=== PATIENT | female | born 1940 | race Caucasian/White ===

== ENCOUNTER → 2017-01-18 | Outpatient (CLI) | payer OTHER ==
[~2017-01-18] MED LIST: ALBU0.08 INH; ALUMSUS2 PO; ASPI81TA25 PO; FLVHFA110 INH; HYDR25TA4 PO; LOSA50TA6 PO; MONT1TAB5 PO; NORT50CA PO; PANT1TAB48 PO
--- NOTE | 2017-01-18 09:29 | DIAGNOSTIC IMAGING REPORT ---
CHEST 2 VIEWS ROUTINE HISTORY: CHRONIC COUGH COMPARISON: Chest 07/29/2013. FINDINGS: Mild diffuse interstitial thickening which is likely chronic. Small linear densities the left lung base favor subsegmental atelectasis or scarring. No new focal lung consolidations to suggest pneumonia. No evidence for pulmonary edema. No pleural effusions. No pneumothorax. The heart is top normal in size. Right upper tracheal deviation remains unchanged. This is secondary to a large left thyroid goiter. IMPRESSION: No significant change compared to the prior study. No acute process. Electronically signed by: Bobby Romano M.D. 01/18/2017 9:27 AM Dictated Date/Time: 01/18/2017 9:26 AM
== END | disposition home or self-care (01) ==
LOC: C.RAD1850 09:13
PROVIDERS: ATTEND Family Medicine
DX: R04.2 Hemoptysis (principal)

== ENCOUNTER 2018-06-08 12:11 | Emergency (ER) | payer OTHER ==
[~2018-06-08] VITALS: Ht 170.2 cm; Wt 92.1 kg
[~2018-06-08 12:11] MED LIST changes: +PANT1TAB3 PO; -PANT1TAB48 PO
[2018-06-08 12:16] VITALS: Ht 170.2 cm; Wt 92.1 kg
--- NOTE | 2018-06-08 12:38 | EMERGENCY ROOM VISIT NOTE ---
History Report prepared by Cameron: Rodolfo Ugarte Under the Supervision of: Dr. Brayan Toussaint M.D. First contact with patient: 12:22 Chief Complaint: OTHER COMPLAINT Stated Complaint: BLOOD PRESSURE History of Present Illness The patient is a 78 year old female with a past medical history of hypertension and hysterectomy who presents to the ED with a cc of hypertension along with intermittent headaches and dizzy spells that started 4 days ago. The patient notes that she takes 25mg of Toprol daily and has no recent changes in this medication, although she did not take today's dose yet. She also notes that she has not had any recent stressors or any other events that could contribute to the hypertension. Negative for chest pain, shortness of breath, vision problems, abdominal pain, and regular exercise. Source of History: patient Onset: 4 days ago Position: head Quality: ache Timing: intermittent Associated Symptoms: No chest pain, No abdominal pain Review of Systems See HPI for pertinent positives and negatives. A total of ten systems were reviewed and were otherwise negative. Past Medical & Surgical Medical Problems: (1) Benign hypertension (2) Hysterectomy Family History Patient reports no known family medical history. Social History Smoking Status: Never Smoker Marital Status: Occupation Status: employed Current/Historical Medications Scheduled Acetaminophen (Tylenol Arthritis Ext Rel), 650 MG PO DAILY Metoprolol Succinate (Toprol Xl), 25 MG PO DAILY Allergies Coded Allergies: No Known Allergies (Verified , 0, 07/29/13) Physical Exam Vital Signs Date Time Temp Pulse Resp B/P (MAP) Pulse Ox O2 Delivery O2 Flow Rate FiO2 06/08/18 15:13 36.4 58 18 180/101 95 06/08/18 14:40 61 16 180/101 97 Room Air 06/08/18 13:00 58 06/08/18 12:40 56 20 207/114 97 Room Air 06/08/18 12:16 36.4 64 18 222/82 98 Room Air Physical Exam GENERAL: Awake, alert, well-appearing, NAD, obese HENT: Normocephalic, atraumatic. EYES: Normal conjunctiva. Sclera non-icteric. PERRL. No anisocoria. NECK: Supple. No nuchal rigidity. FROM. RESPIRATORY: CTAB, no rhonchi, wheezing, crackles CARDIAC: RRR, no MRG ABDOMEN: Soft, NTND, BS+ MSK: No chest wall TTP, no LE edema NEURO: GCS 15, CN 2-12 intact, moves all 4s on command SKIN: No rash or jaundice noted. Medical Decision & Procedures ER Provider Diagnostic Interpretation: Radiology results as stated below per my review and radiologist interpretation: CHEST ONE VIEW PORTABLE CLINICAL HISTORY: severe hypertension pain. Dyspnea. COMPARISON STUDY: 01/18/2017 FINDINGS: Mild cardia megaly. Mild prominence pulmonary vasculature. Diaphragms are smooth. IMPRESSION: Cardia megaly. Pulmonary vascular congestion. The above report was generated using voice recognition software. It may contain grammatical, syntax or spelling errors. Electronically signed by: Cortez Roberts M.D. 06/08/2018 12:58 PM Dictated Date/Time: 06/08/2018 12:57 PM Laboratory Results 06/08/18 13:16 Red Blood Count 4.55, Mean Corpuscular Volume 91.4, Mean Corpuscular Hemoglobin 29.2, Mean Corpuscular Hemoglobin Concent 32.0, Mean Platelet Volume 11.4, Neutrophils (%) (Auto) 70.9, Lymphocytes (%) (Auto) 21.6, Monocytes (%) (Auto) 5.7, Eosinophils (%) (Auto) 1.1, Basophils (%) (Auto) 0.2, Neutrophils # (Auto) 6.25, Lymphocytes # (Auto) 1.90, Monocytes # (Auto) 0.50, Eosinophils # (Auto) 0.10, Basophils # (Auto) 0.02 06/08/18 13:16 Test 06/08/18 13:16 06/08/18 14:24 White Blood Count 8.81 K/uL (4.8-10.8) Red Blood Count 4.55 M/uL (4.2-5.4) Hemoglobin 13.3 g/dL (12.0-16.0) Hematocrit 41.6 % (37-47) Mean Corpuscular Volume 91.4 fL (80-100) Mean Corpuscular Hemoglobin 29.2 pg (25-34) Mean Corpuscular Hemoglobin Concent 32.0 g/dl (32-36) Platelet Count 243 K/uL (130-400) Mean Platelet Volume 11.4 fL (7.4-10.4) Neutrophils (%) (Auto) 70.9 % Lymphocytes (%) (Auto) 21.6 % Monocytes (%) (Auto) 5.7 % Eosinophils (%) (Auto) 1.1 % Basophils (%) (Auto) 0.2 % Neutrophils # (Auto) 6.25 K/uL (1.4-6.5) Lymphocytes # (Auto) 1.90 K/uL (1.2-3.4) Monocytes # (Auto) 0.50 K/uL (0.11-0.59) Eosinophils # (Auto) 0.10 K/uL (0-0.5) Basophils # (Auto) 0.02 K/uL (0-0.2) RDW Standard Deviation 46.0 fL (36.4-46.3) RDW Coefficient of Variation 13.8 % (11.5-14.5) Immature Granulocyte % (Auto) 0.5 % Immature Granulocyte # (Auto) 0.04 K/uL (0.00-0.02) Anion Gap 8.0 mmol/L (3-11) Est Creatinine Clear Calc Drug Dose 41.9 ml/min Estimated GFR () 46.5 Estimated GFR (Non- 40.1 BUN/Creatinine Ratio 22.6 (10-20) Calcium Level 9.0 mg/dl (8.5-10.1) Total Bilirubin 1.1 mg/dl (0.2-1) Direct Bilirubin 0.2 mg/dl (0-0.2) Aspartate Amino Transf (AST/SGOT) 21 U/L (15-37) Alanine Aminotransferase (ALT/SGPT) 18 U/L (12-78) Alkaline Phosphatase 125 U/L (45-117) Total Protein 7.1 gm/dl (6.4-8.2) Albumin 3.7 gm/dl (3.4-5.0) Lipase 187 U/L (73-393) Thyroid Stimulating Hormone (TSH) 0.749 uIu/ml (0.300-4.500) Prothrombin Time 9.8 SECONDS (9.0-12.0) Prothromb Time International Ratio 0.9 (0.9-1.1) Activated Partial Thromboplast Time 24.9 SECONDS (21.0-31.0) Partial Thromboplastin Ratio 1.0 Laboratory results reviewed by me Medications Administered Medications (Trade) Dose Ordered Sig/Mateus Route Start Time Stop Time Status Last Admin Dose Admin Metoprolol Succinate (Toprol Xl Tab) 25 mg ONE STAT PO 06/08/18 12:41 06/08/18 12:42 DC 06/08/18 12:58 25 MG ECG Per My Interpretation Indication: weakness Rate (beats per minute): 59 Rhythm: sinus bradycardia Findings: left axis deviation, other (Normal intervals, no STST changes or TWI) ED Course 1228: The patient was evaluated in room B4B. A complete history and physical exam was performed. 1456: I reevaluated the patient 1514: I reevaluated the patient. Discussed results and discharge instructions: She verbalized understanding and agreement. The patient is ready for discharge. Medical Decision Nursing notes reviewed. Ancillary studies and prior records reviewed. Differential diagnosis: Etiologies such as benign hypertension, hypertensive emergency, cardiovascular pathology, pheochromocytoma, electrolyte abnormality, renal disease, endorgan damage, as well as others were entertained. Patient was seen and evaluated the bedside. Patient was referred for elevated blood pressure while at and an ophthalmology appointment. The patient does have elevated blood pressure with the patient denies any headaches or chest pain. The patient is well-appearing and has a nonfocal neurologic exam. Patient did have blood work completed, EKG, urinalysis. The patient currently does take Toprol 25 and has not taken her morning dose. This was given. Patient's EKG was unremarkable. The patient's blood work showed some mild CKD but given the patient's age I do not believe this is very unremarkable. No prior blood work within the last 3 years for comparison within this EMR. Patient was still asymptomatic. I discussed with the patient that she should continue to take her Toprol 25 once in the morning and once in the evening. Patient was told that she may take her pulse rate prior to taking her medication. Patient was told return if she any worsening symptoms. I also did provide counseling on diet and exercise as well as low-salt diet. Patient was given strict follow-up, discharge, and return precautions. All questions were answered. Patient was deemed suitable for outpatient follow-up at this time. Patient agreed with the plan of care and was safely discharged home. Medication Reconcilliation Current Medication List: was personally reviewed by me Blood Pressure Screening Patient's blood pressure: Elevated blood pressure Blood pressure disposition: Referred to PCP Impression Primary Impression: Hypertension Additional Impressions: Dietary counseling Exercise counseling CKD (chronic kidney disease) stage 3, GFR 30-59 ml/min Scribe Attestation The scribe's documentation has been prepared under my direction and personally reviewed by me in its entirety. I confirm that the note above accurately reflects all work, treatment, procedures, and medical decision making performed by me. Departure Information Dispostion Home / Self-Care Referrals Love Montano PA-C (PCP) Forms HOME CARE DOCUMENTATION FORM, IMPORTANT VISIT INFORMATION, WORK / SCHOOL INSTRUCTIONS Patient Instructions Hypertension Control, Hypertension Dc, My [facility] Additional Instructions Please return to the emergency department if you have worsening or recurrent symptoms not amenable to at-home treatment. Please call for a follow-up appointment with her primary care physician. Please take your medications as prescribed. If you have other concerns and/or complaints please feel free to also call your primary care physician's office or return the ED for further evaluation, management, and treatment. You were found to have an elevated blood pressure today (>120 sytolic or >90 diastolic). Per medicare guidelines, you need to follow up with this blood pressure screening with your Primary Care Physician (PCP). For a new PCP call [phone]. You may take tylenol 650 mg every 6 hours as needed for pain/fever unless told by your physician to not take it or have liver problems. Avoid NSAIDs. Please take your Toprol 25 mg once in the morning and once in the evening. Please schedule a follow-up appointment with your primary care physician to discuss your blood pressure management. You have been examined and treated today on an emergency basis only. This is not a substitute for, or an effort to provide, complete comprehensive medical care. It is impossible to recognize and treat all injuries or illnesses in a single emergency department visit. It is therefore important that you follow up closely with [facility], your PCP, and/or your specialist(s). Call as soon as possible for an appointment. Thank you for your time and consideration. I look forward to speaking with you again soon. Please don't hesitate to call us if you have any questions. Problem Qualifiers Primary Impression: Hypertension Hypertension type: unspecified Qualified Codes: I10 - Essential (primary) hypertension
[2018-06-08] MEDS ORDERED: METOPROLOL SUCC 25MG EXT REL TAB PO STA (12:41)
[2018-06-08] MEDS ORDERED: METO25TA4 PO (12:43)
[2018-06-08] MEDS ORDERED: ACET-1487 PO (12:43)
--- NOTE | 2018-06-08 12:59 | DIAGNOSTIC IMAGING REPORT ---
CHEST ONE VIEW PORTABLE CLINICAL HISTORY: severe hypertension pain. Dyspnea. COMPARISON STUDY: 01/18/2017 FINDINGS: Mild cardia megaly. Mild prominence pulmonary vasculature. Diaphragms are smooth. IMPRESSION: Cardia megaly. Pulmonary vascular congestion. The above report was generated using voice recognition software. It may contain grammatical, syntax or spelling errors. Electronically signed by: Cortez Roberts M.D. 06/08/2018 12:58 PM Dictated Date/Time: 06/08/2018 12:57 PM
[2018-06-08 14:01] LABS: BASO % 0.2 %; BASO ABS # 0.02 K/uL (0-0.2); EOS % 1.1 %; HEMATOCRIT 41.6 % (37-47); HEMOGLOBIN 13.3 g/dL (12.0-16.0); IG# 0.04 K/uL (0.00-0.02); LYMPH % 21.6 %; MEAN CELL VOLUME 91.4 fL (80-100); MEAN CORPUSCULAR HEMOGLOBIN 29.2 pg (25-34); MEAN PLATELET VOLUME 11.4 fL (7.4-10.4); MONO % 5.7 %; NEUT % 70.9 %; NEUT ABS # 6.25 K/uL (1.4-6.5); PLATELET COUNT 243 K/uL (130-400); RED CELL DISTRIBUTION WIDTH CV 13.8 % (11.5-14.5); WHITE BLOOD COUNT 8.81 K/uL (4.8-10.8)
[2018-06-08 14:32] LABS: ALBUMIN 3.7 gm/dl (3.4-5.0); CREATININE 1.27 mg/dl (0.60-1.20); POTASSIUM 4.5 mmol/L (3.5-5.1); TOTAL PROTEIN 7.1 gm/dl (6.4-8.2)
[2018-06-08 14:48] LABS: INR 0.9 (0.9-1.1); PTT PATIENT 24.9 SECONDS (21.0-31.0)
[2018-06-08 15:13] VITALS: BP 180/101; PULSE 58; TEMP 36.4; O2SAT 95
== END 2018-06-08 15:14 | disposition home or self-care (01) ==
LOC: C.EDB 12:12
DX: I12.9 Hypertensive chronic kidney disease with stage 1 through stage 4 chronic kidney disease, or unspecified chronic kidney disease (principal); N18.3 Chronic kidney disease, stage 3 (moderate); Z71.3 Dietary counseling and surveillance; Z71.82 Exercise counseling; E66.9 Obesity, unspecified

== ENCOUNTER 2020-01-27 13:31 | Inpatient (IN) ==
[2020-01-27] MEDS ORDERED: OPTIRAY 320 125ml IV PRN (13:42)
--- NOTE | 2020-01-27 13:54 | CT Scan Report ---
CT head/brain wo con CT DOSE: 729.78 mGycm HISTORY: Stroke evaluation TECHNIQUE: Multiaxial CT images of the head were performed without the use of intravenous contrast. A dose lowering technique was utilized adhering to the principles of ALARA. Comparison: None. Findings: The paranasal sinuses and mastoid air cells are clear. Considerable chronic small vessel ch laura. Multifocal regions of diminished density suggestive of chronic small vessel change versus old i nfarcts. Age-related atrophy. Ventricular system is midline. No evidence for acute intracranial hemorrhage. Impression: Extensive age-related and chronic small vessel change. No acute process within these limitations. ACT 112: Negative or not required by law. The above report was generated using voice recognition software. It may contain grammatical, syntax or spelling errors. Electronically signed by: Cortez Roberts M.D. 01/27/2020 1:53 PM
[2020-01-27] MEDS ORDERED: ASPIRIN CHEW 324 MG PO STA (14:07)
[2020-01-27] MEDS ORDERED: SODIUM CHLORIDE 0.9% 1000ML 500 ML IV ONE (14:07)
[2020-01-27 14:11] LABS: Basophils # (auto) 0.02 K/uL (0-0.2); Basophils % (auto) 0.3 %; Eosinophils % (auto) 1.4 %; Hematocrit (blood only) 41.3 % (37-47); Hemoglobin 13.3 g/dL (12.0-16.0); Immature Granulocytes # (auto) 0.03 K/uL (0.00-0.02); Immature Granulocytes % (auto) 0.4 %; Lymphocytes # (auto) 1.75 K/uL (1.2-3.4); Lymphocytes % (auto) 23.7 %; Mean Corpuscular Hemoglobin 29.7 pg (25-34); Mean Corpuscular Hgb Conc 32.2 g/dL (32-36); Mean Corpuscular Volume 92.2 fL (80-100); Mean Platelet Volume 10.8 fL (7.4-10.4); Monocytes % (auto) 6.8 %; Neutrophils # (auto) 4.99 K/uL (1.4-6.5); Neutrophils % (auto) 67.4 %; Platelet Count 208 K/uL (130-400); RDW Coefficient of Variation 13.5 % (11.5-14.5); RDW Standard Deviation 45.9 fL (36.4-46.3); Red Blood Count 4.48 M/uL (4.2-5.4); White Blood Count 7.39 K/uL (4.8-10.8)
[2020-01-27] MEDS: LABETALOL HCL IV 5 MG/ML 20ML IV PRN ×2 (14:13→14:24)
--- NOTE | 2020-01-27 14:15 | CT Scan Report ---
CT angio head w con CLINICAL HISTORY: 79 years-old Female presenting with Stroke evaluation . TECHNIQUE: Multidetector CT angiography of the head was performed after the administration of intrave nous contrast. 3-D volumetric and/or maximum intensity projection (MIP) images were subsequently efrain nstructed for review. IV contrast: 120 mL of Optiray 320. One or more dose lowering techniques were u sed consistent with the principles of ALARA (as low as reasonably achievable), including automatic ex posure control, mA or kV adjustment to individual patient size, and/or use of iterative reconstructio n. COMPARISON: None. CT DOSE (mGy.cm): The estimated cumulative dose is 1110.55 mGycm. FINDINGS: Contracts Director topogram: The patient is edentulous. Anterior circulation: Atherosclerosis of the cavernous segments of the internal carotid arteries. Int racranial portions of the internal carotid arteries patent to the level of the termini. Anterior cere bral arteries patent. Middle cerebral arteries patent. Anterior communicating artery patent. Posterior circulation: Left dominant vertebral artery. Intradural portions of the vertebral arteries patent. Posterior inferior cerebellar arteries patent. Basilar artery patent. Anterior inferior cereb ellar arteries poorly visualized. Superior cerebellar arteries patent. Posterior cerebral arteries pa tent. Posterior communicating arteries hypoplastic or aplastic. Dural venous sinuses: Patent. 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 Calvarium intact. IMPRESSION: 1. No evidence of aneurysm, focal vessel occlusion, or significant stenosis of the intracranial jaime lori. ACT 112: Negative or not required by law. Electronically signed by: Mark Pedersen M.D. 01/27/2020 2:14 PM
--- NOTE | 2020-01-27 14:16 | CT Scan Report ---
CT angio neck with con HISTORY: Mental status change Stroke evaluation TECHNIQUE: Multiaxial CT angiography of the neck was performed IV contrast: 100 cc nonionic All mani urements were calculated based on NASCET criteria. Maximum intensity projection images were also obt ained. A dose lowering technique was utilized adhering to the principles of ALARA. COMPARISON STUDY: None. FINDINGS: The aortic arch and proximal great vessels are widely patent. Significant enlargement of t he thyroid. This measures approximately 10 x 5 cm maximum dimension. There are areas of central necro sis. This demonstrates lateral displacement of the carotid vasculature as well as right lateral displ acement of the airway. I evaluation of the carotid vasculature shows moderate scattered plaque formation. No significant or high-grade stenosis is seen. The vertebral basilar system shows no significant stenotic process. IMPRESSION: 1. No major stenosis or significant stenosis of the carotid or vertebral basilar system. 2. Marked enlargement and heterogeneity of the thyroid with evidence for displacement of the airway t o the right and of the carotid system bilaterally. 3. Maximum dimensions of the thyroid are approximately 10 x 5 cm. ACT 112: Negative or not required by law. The above report was generated using voice recognition software. It may contain grammatical, syntax or spelling errors. Electronically signed by: Cortez Roberts M.D. 01/27/2020 2:15 PM
[2020-01-27 14:23] LABS: Partial Thromboplastin Ratio 0.9; Partial Thromboplastin Time 26.5 Seconds (21.0-31.0); Prothrombin Time 10.5 Seconds (9.0-12.0)
[2020-01-27] MEDS ORDERED: LABETALOL HCL IV 5 MG/ML 20ML IV PRN (14:27)
[2020-01-27] MEDS ORDERED: ASPIRIN 300 MG SUPP PR ONE (14:27)
[2020-01-27 14:28] LABS: Albumin Level 3.6 gm/dl (3.4-5.0); BUN Creatinine Ratio 19.9 (10-20); Calcium 8.8 mg/dl (8.5-10.1); Est GFR (African American) 39.7; Est GFR (Non-African American) 34.2; Magnesium 2.4 mg/dl (1.8-2.4)
[2020-01-27 14:33] LABS: Albumin Globulin Ratio 1.2 (0.9-2); Bilirubin,Total 0.9 mg/dl (0.2-1); Globulin 3.1 gm/dl (2.5-4.0); Total Protein 6.7 gm/dl (6.4-8.2); Troponin I 0.016 ng/ml (0-0.045)
--- NOTE | 2020-01-27 15:03 | Magnetic Resonance Report ---
MRI OF THE BRAIN WITHOUT CONTRAST CLINICAL HISTORY: Dysarthria, L facial droop COMPARISON STUDY: CT scan dated 01/27/2020 FINDINGS: Sagittal T1, axial diffusion, proton density and T2 weighted axial, coronal FLAIR, and axial T1-weigh shoshana images were acquired. No intra or extra-axial mass lesions are visualized There are small foci of restricted water diffusion within the right frontoparietal cortex and subjace nt white matter consistent with a small acute/subacute infarct. There is no evidence of ventricular dilatation. Proton density T2-weighted and FLAIR images reveal scattered foci of increased T2 signal within the w jassi matter, likely on a small vessel basis. There are no abnormal flow voids. There is a subcentimeter left parietal scalp nodule, likely representing a sebaceous cyst IMPRESSION: 1. Small foci of restricted water diffusion within the right frontoparietal cortex and subjacent whit e matter consistent with a small acute/subacute infarct ACT 112: Negative or not required by law. Electronically signed by: Rebel Zamorano M.D. 01/27/2020 3:02 PM
--- NOTE | 2020-01-27 15:40 | Emergency Department Note ---
Impression & Plan Acute CVA (cerebrovascular accident), Facial droop, Dysarthria, Hypertensive emergency ED Provider Note NAME: SLAVA RIVERA AGE: 79 SEX: F : 1940 ARRIVES VIA: Walk-In INFORMANT: Patient, ED PROVIDER(S): Brayan Toussaint MD Chief Complaint: Slurred speech HPI: Patient is present with concern for slurred speech and inability to hold in water. The patient's last known well time was 730 this morning. The patient's coming into the garage noticed some slurred speech and inability to hold water in the mouth around 9:30 AM. No recent falls or head trauma. The patient does not take any blood thinning medications. The patient did take her home medications this morning. The patient does not believe that her symptoms have gotten any better or worse since they began. Nothing seems to make them better or worse. Patient does have a prior history of stroke 5 years ago without any known deficits. ROS: See HPI for pertinent positives and negatives. A total of 10 systems were reviewed and otherwise negative. Past medical history: See below Surgical history: See below Social history: See below Physical Exam: GENERAL: NAD, non-toxic. EYE EXAM: Normal conjunctiva. PERRL, no anisocoria and EOM's grossly intact w/o pain. OROPHARYNX: Moist mucus membranes. Grossly normal dentition. NECK: Supple, no nuchal rigidity, no adenopathy, non-tender. No signs of meningismus. LUNGS: Clear to auscultation. Normal chest wall mechanics. HEART: NSR, no MRG. ABDOMEN: Abdomen soft, non-tender, normo-active bowel sounds, no masses, no rebound or guarding. BACK: No CVA TTP. SKIN: No rashes and no bruising. UPPER EXTREMITIES: Upper extremities are grossly normal. LOWER EXTREMITIES: Grossly normal, no edema. NEURO EXAM: A&O x3, cranial nerves II-XII grossly intact with exception of left- sided facial droop primarily with grimace, slurred speech, moves all 4 extremities on command w/o issue. Good finger to nose, no drift, no sensory deficits. Differential diagnoses: Migraine headache, meningitis, sinusitis, CO exposure, ICH, SAH, infection, tumor, headache, sinus thrombosis, arterial dissection, as well as other pathologies. Course: Patient was immediately sent to scan after concern for her stroke. Patient was seen and evaluated the bedside and tele-stroke was paged. I did speak with Dr. Fernandez after discussion with the patient symptoms. Currently not a TPA candidate and would only call back if there was concern for large vessel occlusion which may benefit from intervention. Patient had failed her dysphagia screening so the patient was given UT aspirin. Patient was updated on the findings. The patient's blood pressure had improved with doses of labetalol. We will continue permissive hypertension. It is to the on-call hospitalist Dr. Gardiner agreed to further evaluate treat the patient. EKG: Indication: Stroke work-up Sinus rhythm, rate of 63, normal intervals, left axis deviation, T wave inversion in V2. Imaging Studies: Radiology results as stated below per my review in the radiologist's interpretation: CT head/brain wo con CT DOSE: 729.78 mGycm HISTORY: Stroke evaluation TECHNIQUE: Multiaxial CT images of the head were performed without the use of intravenous contrast. A dose lowering technique was utilized adhering to the principles of ALARA. Comparison: None. Findings: The paranasal sinuses and mastoid air cells are clear. Considerable chronic small vessel change. Multifocal regions of diminished density suggestive of chronic small vessel change versus old infarcts. Age-related atrophy. Ventricular system is midline. No evidence for acute intracranial hemorrhage. Impression: Extensive age-related and chronic small vessel change. No acute process within these limitations. ACT 112: Negative or not required by law. The above report was generated using voice recognition software. It may contain grammatical, syntax or spelling errors. Electronically signed by: Cortez Roberts M.D. 01/27/2020 1:53 PM Dictated: 01/27/20 135 Transcribed: 01/27/[address] angio head w con CLINICAL HISTORY: 79 years-old Female presenting with Stroke evaluation . TECHNIQUE: Multidetector CT angiography of the head was performed after the administration of intravenous contrast. 3-D volumetric and/or maximum intensity projection (MIP) images were subsequently reconstructed for review. IV contrast: 120 mL of Optiray 320. One or more dose lowering techniques were used consistent with the principles of ALARA (as low as reasonably achievable), including automatic exposure control, mA or kV adjustment to individual patient size, and/or use of iterative reconstruction. COMPARISON: None. CT DOSE (mGy.cm): The estimated cumulative dose is 1110.55 mGycm. FINDINGS: Belt Maker Helper topogram: The patient is edentulous. Anterior circulation: Atherosclerosis of the cavernous segments of the internal carotid arteries. Intracranial portions of the internal carotid arteries patent to the level of the termini. Anterior cerebral arteries patent. Middle cerebral arteries patent. Anterior communicating artery patent. Posterior circulation: Left dominant vertebral artery. Intradural portions of the vertebral arteries patent. Posterior inferior cerebellar arteries patent. Basilar artery patent. Anterior inferior cerebellar arteries poorly visualized. Superior cerebellar arteries patent. Posterior cerebral arteries patent. Posterior communicating arteries hypoplastic or aplastic. Dural venous sinuses: Patent. Other: Limited cortical infarct in the left frontoparietal region near the vertex, which is chronic appearing. Calvarium intact. IMPRESSION: 1. No evidence of aneurysm, focal vessel occlusion, or significant stenosis of the intracranial arteries. ACT 112: Negative or not required by law. Electronically signed by: Mark Pedersen M.D. 01/27/2020 2:[address] angio neck with con HISTORY: Mental status change Stroke evaluation TECHNIQUE: Multiaxial CT angiography of the neck was performed IV contrast: 100 cc nonionic All measurements were calculated based on NASCET criteria. Maximum intensity projection images were also obtained. A dose lowering technique was utilized adhering to the principles of ALARA. COMPARISON STUDY: None. FINDINGS: The aortic arch and proximal great vessels are widely patent. Significant enlargement of the thyroid. This measures approximately 10 x 5 cm maximum dimension. There are areas of central necrosis. This demonstrates lateral displacement of the carotid vasculature as well as right lateral displacement of the airway. I evaluation of the carotid vasculature shows moderate scattered plaque formation. No significant or high-grade stenosis is seen. The vertebral basilar system shows no significant stenotic process. IMPRESSION: 1. No major stenosis or significant stenosis of the carotid or vertebral basilar system. 2. Marked enlargement and heterogeneity of the thyroid with evidence for displacement of the airway to the right and of the carotid system bilaterally. 3. Maximum dimensions of the thyroid are approximately 10 x 5 cm. ACT 112: Negative or not required by law. The above report was generated using voice recognition software. It may contain grammatical, syntax or spelling errors. Electronically signed by: Cortez Roberts M.D. 01/27/2020 2:15 PM Dictated: 01/27/20 1409 Transcribed: 01/27/20 140 MRI OF THE BRAIN WITHOUT CONTRAST CLINICAL HISTORY: Dysarthria, L facial droop COMPARISON STUDY: CT scan dated 01/27/2020 FINDINGS: Sagittal T1, axial diffusion, proton density and T2 weighted axial, coronal FLAIR, and axial T1-weighted images were acquired. No intra or extra-axial mass lesions are visualized There are small foci of restricted water diffusion within the right frontoparietal cortex and subjacent white matter consistent with a small acute/subacute infarct. There is no evidence of ventricular dilatation. Proton density T2-weighted and FLAIR images reveal scattered foci of increased T2 signal within the white matter, likely on a small vessel basis. There are no abnormal flow voids. There is a subcentimeter left parietal scalp nodule, likely representing a sebaceous cyst IMPRESSION: 1. Small foci of restricted water diffusion within the right frontoparietal cortex and subjacent white matter consistent with a small acute/subacute infarct ACT 112: Negative or not required by law. Electronically signed by: Rebel Zamorano M.D. 01/27/2020 3:02 PM Dictated: 01/27/20 1458 Transcribed: 01/27/20 1458 Cardiac monitoring: An order was placed for continuous cardiac monitoring. The monitor shows a rate of 63 with sinus rhythm. MDM: Patient was seen and evaluated as she was activated as a stroke alert given the concern for her symptoms. Patient's initial CT was negative. I did speak with the on-call tele-stroke neurologist who did recommend the aspirin and blood pressure management keeping a systolic less than 220 but permissive hypertension. This was relayed to nursing. The patient did receive several doses of labetalol including rectal aspirin due to the patient failing her dysphagia screening. The patient's CT head was negative. CT angios were negative with the exception of an enlarged thyroid. The patient does not have any respiratory compromise. Patient's MRI does show restricted diffusion with concern for small acute versus subacute infarct. Did speak the on-call hospitalist agreed to further evaluate treat the patient. As discussed with tele-stroke the patient is not an active TPA candidate. Patient was admitted to the medicine service. Critical Care: I have personally spent 55 minutes of critical care time in direct management of this patient. This includes bedside care, interpretation of diagnostic studies, and testing, discussion with consultants, patient, and family members, and other require inpatient management activities. This 55 minutes is in excess of all separately billable procedures. Past Med/Surg History Medical History CKD (chronic kidney disease) stage 3, GFR 30-59 ml/min (Inactive) Hypertension (Inactive) Hypertensive emergency (Inactive) Surgical History (Updated 01/27/20 @ 15:49 by Brayan Toussaint MD) No pertinent past surgical history Social History Preferred Language: Lao Feels Safe at Home: Yes Smoking Status: Never smoker Allergies Allergies Allergy/AdvReac Type Severity Reaction Status Date / Time No Known Allergies Allergy Mild 0 Verified 01/27/20 14:39 Home Meds Home Medications Medication Instructions Recorded Confirmed aspirin 0 mg PO QID PRN 01/27/20 01/27/20 losartan [Cozaar] 100 mg PO QAM 01/27/20 01/27/20 metoprolol succinate [Toprol XL] 25 mg PO QAM 01/27/20 01/27/20 Results & Data (ED) Vital Signs Vital Signs - 24 hr 01/27/20 13:35 01/27/20 14:04 01/27/20 14:11 Temperature 36.3 C L Temperature Source Oral Pulse Rate 66 63 Pulse Rate [Apical] Pulse Rate from SpO2 Sensor 63 Pulse Strength Normal Respiratory Rate 16 18 Respiratory Effort / Characteristics Non-Labored Respiratory Depth Normal Respiratory Pattern Regular Blood Pressure 214/102 H 237/98 H Blood Pressure [Left Arm] Blood Pressure Mean 139 123 Blood Pressure Mean [Left Arm] Blood Pressure Position Sitting Pulse Oximetry 97 97 96 Oxygen Delivery Method Room Air Room Air Room Air Sepsis Recent Fever Within 48 Hours No Sepsis Action Taken by Nursing No Action Required 01/27/20 14:15 01/27/20 14:21 01/27/20 14:27 Temperature Temperature Source Pulse Rate 62 61 63 Pulse Rate [Apical] Pulse Rate from SpO2 Sensor 62 61 62 Pulse Strength Respiratory Rate 18 20 20 Respiratory Effort / Characteristics Respiratory Depth Respiratory Pattern Blood Pressure 198/81 H 215/85 H 196/78 H Blood Pressure [Left Arm] Blood Pressure Mean 135 91 116 Blood Pressure Mean [Left Arm] Blood Pressure Position Pulse Oximetry 96 97 96 Oxygen Delivery Method Room Air Room Air Room Air Sepsis Recent Fever Within 48 Hours Sepsis Action Taken by Nursing 01/27/20 15:04 01/27/20 15:33 Temperature Temperature Source Pulse Rate Pulse Rate [Apical] 57 L 63 Pulse Rate from SpO2 Sensor Pulse Strength Respiratory Rate 18 18 Respiratory Effort / Characteristics Non-Labored Respiratory Depth Normal Respiratory Pattern Blood Pressure Blood Pressure [Left Arm] 195/80 H 191/113 H Blood Pressure Mean Blood Pressure Mean [Left Arm] 118 139 Blood Pressure Position Pulse Oximetry 96 96 Oxygen Delivery Method Room Air Room Air Sepsis Recent Fever Within 48 Hours Sepsis Action Taken by Care Home Medications Current Medication List: was personally reviewed by me Laboratory Data Attestation: I reviewed the patient's lab results. Result diagrams: 01/27/20 14:03 01/27/20 14:03 Lab Results 01/27/20 01/27/20 01/27/20 Range/Units 14:02 14:03 14:03 WBC 7.39 (4.8-10.8) K/uL RBC 4.48 (4.2-5.4) M/uL Hgb 13.3 (12.0-16.0) g/dL Hct 41.3 (37-47) % MCV 92.2 (80-100) fL MCH 29.7 (25-34) pg MCHC 32.2 (32-36) g/dL RDW Std Deviation 45.9 (36.4-46.3) fL RDW Coeff of Cj 13.5 (11.5-14.5) % Plt Count 208 (130-400) K/uL MPV 10.8 H (7.4-10.4) fL Immature Gran % (Auto) 0.4 % Neut % (Auto) 67.4 % Lymph % (Auto) 23.7 % [place] % (Auto) 6.8 % Eos % (Auto) 1.4 % Baso % (Auto) 0.3 % Immature Gran # (Auto) 0.03 H (0.00-0.02) K/uL Neut # (Auto) 4.99 (1.4-6.5) K/uL Lymph # (Auto) 1.75 (1.2-3.4) K/uL [place] # (Auto) 0.50 (0.11-0.59) K/uL Eos # (Auto) 0.10 (0-0.5) K/uL Baso # (Auto) 0.02 (0-0.2) K/uL PT (9.0-12.0) Seconds INR (0.9-1.1) APTT (21.0-31.0) Seconds PTT Ratio Sodium (136-145) mmol/L Potassium (3.5-5.1) mmol/L Chloride (98-107) mmol/L Carbon Dioxide (21-32) mmol/L Anion Gap (3-11) BUN (7-18) mg/dl Creatinine (0.6-1.2) mg/dl Est Cr Clr Drug Dosing ml/min Est GFR ( Amer) Est GFR (Non-Af Amer) BUN/Creatinine Ratio (10-20) Glucose (70-99) mg/dl POC Glucose 90 (70-99) mg/dl Calcium (8.5-10.1) mg/dl Magnesium (1.8-2.4) mg/dl Total Bilirubin (0.2-1) mg/dl AST (15-37) U/L ALT (12-78) U/L Alkaline Phosphatase (45-117) U/L Troponin I (0-0.045) ng/ml Total Protein (6.4-8.2) gm/dl Albumin (3.4-5.0) gm/dl Globulin (2.5-4.0) gm/dl Albumin/Globulin Ratio (0.9-2) Blood Type O Negative Antibody Screen NEGATIVE 01/27/20 01/27/20 Range/Units 14:03 14:03 WBC (4.8-10.8) K/uL RBC (4.2-5.4) M/uL Hgb (12.0-16.0) g/dL Hct (37-47) % MCV (80-100) fL MCH (25-34) pg MCHC (32-36) g/dL RDW Std Deviation (36.4-46.3) fL RDW Coeff of Cj (11.5-14.5) % Plt Count (130-400) K/uL MPV (7.4-10.4) fL Immature Gran % (Auto) % Neut % (Auto) % Lymph % (Auto) % [place] % (Auto) % Eos % (Auto) % Baso % (Auto) % Immature Gran # (Auto) (0.00-0.02) K/uL Neut # (Auto) (1.4-6.5) K/uL Lymph # (Auto) (1.2-3.4) K/uL [place] # (Auto) (0.11-0.59) K/uL Eos # (Auto) (0-0.5) K/uL Baso # (Auto) (0-0.2) K/uL PT 10.5 (9.0-12.0) Seconds INR 1.0 (0.9-1.1) APTT 26.5 (21.0-31.0) Seconds PTT Ratio 0.9 Sodium 138 (136-145) mmol/L Potassium 4.0 (3.5-5.1) mmol/L Chloride 108 H (98-107) mmol/L Carbon Dioxide 27 (21-32) mmol/L Anion Gap 4.0 (3-11) BUN 29 H (7-18) mg/dl Creatinine 1.44 H (0.6-1.2) mg/dl Est Cr Clr Drug Dosing 36.0 ml/min Est GFR ( Amer) 39.7 Est GFR (Non-Af Amer) 34.2 BUN/Creatinine Ratio 19.9 (10-20) Glucose 100 H (70-99) mg/dl POC Glucose (70-99) mg/dl Calcium 8.8 (8.5-10.1) mg/dl Magnesium 2.4 (1.8-2.4) mg/dl Total Bilirubin 0.9 (0.2-1) mg/dl AST 14 L (15-37) U/L ALT 15 (12-78) U/L Alkaline Phosphatase 104 (45-117) U/L Troponin I 0.016 (0-0.045) ng/ml Total Protein 6.7 (6.4-8.2) gm/dl Albumin 3.6 (3.4-5.0) gm/dl Globulin 3.1 (2.5-4.0) gm/dl Albumin/Globulin Ratio 1.2 (0.9-2) Blood Type Antibody Screen Administered Medications Ioversol (Optiray 320 125ml) 120 ml IV ONCE PRN PRN Reason: Interaction Checking Stop: 01/31/20 13:41 Last Admin: 01/27/20 13:43 Dose: 120 ml Documented by: [id number] Discontinued Medications Aspirin (Aspirin) 324 mg PO NOW STA Stop: 01/27/20 14:08 Last Admin: 01/27/20 14:19 Dose: Not Given Documented by: [id number] Aspirin (Aspirin) 300 mg UT ONE ONE Stop: 01/27/20 14:28 Last Admin: 01/27/20 15:25 Dose: 300 mg Documented by: [id number] Sodium Chloride (Nss 1000ml) 500 mls @ 999 mls/hr IV .Q31M ONE Stop: 01/27/20 14:37 Last Infusion: 01/27/20 14:51 Dose: 0 mls/hr Documented by: [id number] Admin: 01/27/20 14:17 Dose: 999 mls/hr Documented by: [id number] Labetalol HCl (Normodyne) 10 mg IV Q10M PRN PRN Reason: SBP above 185 or DBP above 110 Last Admin: 01/27/20 14:24 Dose: 10 mg Documented by: [id number] Cosigned by: [id number] Admin: 01/27/20 14:13 Dose: 10 mg Documented by: [id number] Cosigned by: [id number] Blood Pressure Blood Pressure Findings: Elevated blood pressure Blood Pressure Disposition: further management by hospitalist Discharge Plan Visit Data Chief Complaint: Stroke/CVA Symptoms Stated Complaint: high blood pressure poss stroke ED Provider: Brayan Toussaint Discharge Problem: Acute CVA (cerebrovascular accident), Facial droop, Dysarthria, Hypertensive emergency Forms Stand Alone Forms: [facility] Prescriptions Prescriptions: No Action metoprolol succinate [Toprol XL] 25 mg tablet extended release 24 hr 25 mg PO QAM RF: 0 losartan [Cozaar] 100 mg tablet 100 mg PO QAM RF: 0 aspirin 650 mg Tablet,Delayed Release (Dr/Ec) 0 mg PO QID PRN (Reason: Pain) RF: 0
--- NOTE | 2020-01-27 16:02 | History & Physical Report ---
Date of Service January 27, 2020 Assessment & Plan (1) Stroke-like symptoms: CVA vs HTN emergency causing stroke like sx MRI with possible acute/subacute CVA Outside of tpa window CTA neg for acute ECHO pending CBC, electrolytes WNL Trop neg EKG WNL Start plavix PRN HTN meds PT/OT/ST evals pending Neuro c/s pending Pt with hx of CVA 5 yrs ago, no residual deficits, no home aspirin/plavix use (2) Elevated serum creatinine: Last cr noted is 1.2 in 2018 Cr on admission 1.4 Monitor with IVF (3) HTN (hypertension): Holding home meds until PO status eval (4) DVT prophylaxis: SCDs, Heparin for DVT proph History of Present Illness Primary Care Provider: Love Montano PA-C 79 y/o F c/o L sided facial droop and slurred speech. Pt states she woke up around 7:30a today and had slurred speech. She was able to take her morning medications, but this continued to worsen. Later in the morning she noted that she could not drink water without it coming out of the side of her mouth. She came to the ED for evaluation at that point. She has had no inability to use her UE/LE, headache, confusion. She did have some L eye blurry vision earlier, but this is resolved. She has never had sx like this prior and states she feels no different other than the improved vision. Pt denies fever, SOB, chest pain, abd pain, n/v/c/d, LE pain or swelling. She took her BP during this and it was noted to be 190 systolic. Pt does not check daily, but states she checked it a few days ago and it was "normal" at that time, but she cannot tell me what the reading was. Pt states that yesterday was a normal day for her. No issues with speech, PO intake. She did her usual activities without issue. She does note that she had L hand numbness a few days ago, but it resolved. Allergies Allergy/AdvReac Type Severity Reaction Status Date / Time No Known Allergies Allergy Mild 0 Verified 01/27/20 14:39 Home Medications Home Medications Medication Instructions Recorded Confirmed Type aspirin 0 mg PO QID PRN 01/27/20 01/27/20 History losartan [Cozaar] 100 mg PO QAM 01/27/20 01/27/20 History metoprolol succinate [Toprol XL] 25 mg PO QAM 01/27/20 01/27/20 History Past Med/Surg History Medical History CKD (chronic kidney disease) stage 3, GFR 30-59 ml/min (Inactive) Hypertension (Inactive) Hypertensive emergency (Inactive) Surgical History No pertinent past surgical history Family History (Updated 01/27/20 @ 15:59 by Love Gardiner DO) Denies family history of Stroke Social History (Updated 01/27/20 @ 15:59 by Love Gardiner DO) Preferred Language: Mosotho Feels Safe at Home: Yes Smoking Status: Former smoker Number of Years Since Quit: 35 ; Hx Alcohol Use: No Hx Substance Use: No Review of Systems Review of Systems: Pertinent positives and negatives reviewed in HPI--all others negative Physical Exam Constitutional: WD/WN, vitals as above Eyes: normal visual hernadez by confrontation and + anicteric sclerae Neck: normal visual inspection and trachea midline Respiratory: normal respiratory effort, lungs clear to auscultation Cardiovascular: Rate/Rhythm: regular rate and regular rhythm Gastrointestinal (Abdomen): Inspection/Auscultation: abdomen not distended Percussion/Palpation: abdomen soft; abdomen nontender Musculoskeletal: Head/Neck/Chest: normocephalic and head atraumatic n egative for edema, peripheral pulses intact Skin: no rashes, warm and dry Neurologic: awake; + CN's not intact and not confused Speech / Cognition: + abnormal speech L sided facial droop, deficit on the L with pursed lip breathing, remainder of CN exam intact 5/5 youth care specialist strength b/l 5/5 LE strength against resistance in all planes b/l Psychiatric: A+Ox3, euthymic affect Results & Data Results & Data ([facility]) Vital Signs (Past 12 Hours) Vital Signs Temp Pulse Pulse Resp BP BP Pulse Ox 01/27/20 15:57 57 L 18 184/88 H 96 01/27/20 15:33 63 18 191/113 H 96 01/27/20 15:04 57 L 18 195/80 H 96 01/27/20 14:27 63 20 196/78 H 96 01/27/20 14:21 61 20 215/85 H 97 01/27/20 14:15 62 18 198/81 H 96 01/27/20 14:11 63 18 237/98 H 96 01/27/20 14:04 97 01/27/20 13:35 36.3 C L 66 16 214/[address] head: neg for acute CTA head/neck: neg for acute MRI: Small foci of restricted water diffusion within the right frontoparietal cortex and subjacent white matter consistent with a small acute/subacute infarct ECG Rhythm: sinus rhythm Code Status & VTE Plan Code Status Full code per pt VTE Prophylaxis Plan VTE Prophylaxis will be ordered: Yes PG Care Time/CCT Total # of Minutes Spent Total Time Spent with Patient: Total time spent is greater than 50% in coordination of care (as documented) at patient's floor/unit and/or counseling patient: Coding Level of Care Code 71991 Initial Inpt Care Lvl 3 Diagnoses Stroke-like symptoms R29.90 Elevated serum creatinine R79.89 HTN (hypertension) I10 DVT prophylaxis Z29.9
[2020-01-27] MEDS ORDERED: PHARMACIST DISCHARGE MED REC CONSULT PRN (17:07)
[2020-01-27] MEDS ORDERED: MAGNESIUM HYDROXIDE SUSP 30 ML UDC PO PRN (17:07)
[2020-01-27] MEDS ORDERED: METOPROLOL TARTRATE 1 MG/ML VIAL IV PRN (17:07)
[2020-01-27] MEDS ORDERED: ACETAMINOPHEN 325 MG TAB PO PRN (17:07)
[2020-01-27] MEDS ORDERED: ONDANSETRON INJ 2 MG/ML 2 ML VIAL IV PRN (17:07)
[2020-01-27] MEDS: HEPARIN SOD 5,000 UNIT/0.5 ML VIAL SQ SCH (21:12)
[2020-01-28] MEDS: HEPARIN SOD 5,000 UNIT/0.5 ML VIAL SQ SCH ×2 (05:54→15:25)
[2020-01-28 06:22] LABS: BUN Creatinine Ratio 17.5 (10-20); Calcium 8.8 mg/dl (8.5-10.1); Creatinine Clr Calc Pharmacy 37.1 ml/min; Est GFR (African American) 41.7; Potassium 4.1 mmol/L (3.5-5.1)
[2020-01-28 06:39] LABS: Estimated Average Glucose 105 mg/dl; Hemoglobin A1C 5.3 % (4.5-5.6)
[2020-01-28] MEDS ORDERED: CLOPIDOGREL BISULFATE 75 MG TAB PO SCH (09:00)
--- NOTE | 2020-01-28 09:32 | XCELERA ---
[id number] [id number]
--- NOTE | 2020-01-28 09:34 | Electrocardiogram Report ---
Test Reason : Blood Pressure : / mmHG Vent. Rate : 063 BPM Atrial Rate : 063 BPM P-R Int : 192 ms QRS Dur : 100 ms QT Int : 412 ms P-R-T Axes : 106 -47 044 degrees QTc Int : 421 ms Sinus rhythm with Premature supraventricular complexes Left anterior fascicular block Nonspecific T wave abnormality Abnormal ECG When compared with ECG of 08-JUN-2018 12:57, Premature supraventricular complexes are now Present Confirmed by Caden Juarez ([id number]) on 01/28/2020 9:33:39 AM Referred By: REFERRED SELF Confirmed By:Caden Juarez
[2020-01-28] MEDS ORDERED: ATORVASTATIN 40 MG TAB PO SCH (11:30)
[2020-01-28] MEDS ORDERED: STROKE PATIENT DISCHARGE STA (14:45)
--- NOTE | 2020-01-28 15:17 | Pharmacy Report ---
Pharmacist Stroke Counseling - Date of Service January 28, 2020 - Scope: Pharmacy has been consulted to provide medication discharge counseling for this patient admitted with CVA as per the Pharmacist Discharge Counseling for Stroke Patients Protocol. - Medications on Discharge: Home Medications Medication Instructions Recorded Confirmed aspirin 0 mg PO QID PRN 01/27/20 01/27/20 losartan [Cozaar] 100 mg PO QAM 01/27/20 01/27/20 metoprolol succinate [Toprol XL] 25 mg PO QAM 01/27/20 01/27/20 New Rx's Medication Instructions Recorded atorvastatin 40 mg PO QAM 30 Days #30 tab 01/28/20 clopidogrel 75 mg PO QAM 30 Days #30 tab 01/28/20 - Action: The above medications, specifically ones for stroke treatment/prophylaxis, have been reviewed in detail with the patient and/or patient sales solutions representative(s) prior to discharge. This includes indication, common adverse reactions, drug interactions, and medication administration. Medication counseling has been employed using the teach-back method to ensure understanding. - Outcome: The patient has demonstrated understanding of the medications. Please note, they are aware that the pharmacist will call them within 72 hours post-discharge to confirm that the appropriate medications are being taken and answer any further medication related questions the patient might have at that time. Contact information Individual to be contacted: Sun Beal Phone number: [phone] ('s cell phone) Best time to call: anytime of day works Additional comments: - Counseling was completed via telephone encounter secondary to COVID-19 precautions - Patient was given opportunity to have all questions/concerns addressed - Please reiterate dosing instructions with patient Thank you for allowing pharmacy to be involved in the care of this patient. Please call [phone] or [phone] with any additional questions
--- NOTE | 2020-01-28 16:13 | Discharge Summary ---
Date of Service January 28, 2020 Admission HPI Per Admitting Provider 79 y/o F c/o L sided facial droop and slurred speech. Pt states she woke up around 7:30a today and had slurred speech. She was able to take her morning medications, but this continued to worsen. Later in the morning she noted that she could not drink water without it coming out of the side of her mouth. She came to the ED for evaluation at that point. She has had no inability to use her UE/LE, headache, confusion. She did have some L eye blurry vision earlier, but this is resolved. She has never had sx like this prior and states she feels no different other than the improved vision. Pt denies fever, SOB, chest pain, abd pain, n/v/c/d, LE pain or swelling. She took her BP during this and it was noted to be 190 systolic. Pt does not check daily, but states she checked it a few days ago and it was "normal" at that time, but she cannot tell me what the reading was. Pt states that yesterday was a normal day for her. No issues with speech, PO intake. She did her usual activities without issue. She does note that she had L hand numbness a few days ago, but it resolved. Principal Diagnosis Acute ischemic stroke, right frontoparietal cortex Discharge Exam Constitutional WD/WN, vitals as above Eyes PERRL, conjunctivae normal, anicteric sclerae ENMT external ear and nose normal, oropharynx normal Neck trachea midline, no thyromegaly Respiratory normal respiratory effort, lungs clear to auscultation Cardiovascular RRR, no murmur, no edema Gastrointestinal (Abdomen) normal bowel sounds, soft, nontender, no hepatosplenomegaly Musculoskeletal no cyanosis or clubbing, extremities motor strength 5/5 Skin no rashes, warm and dry Neurologic patellar DTR's 2+ bilat, sensation intact normal touch/pain/proprioception, moves all extremities and awake; + CN's not intact (left facial droop, mild) and no focal motor deficits Speech / Cognition: + abnormal speech (mild dysarthria) Psychiatric A+Ox3, euthymic affect Lymphatic no cervical or axillary lymphadenopathy Discharge Data Allergies Allergy/AdvReac Type Severity Reaction Status Date / Time No Known Allergies Allergy Mild 0 Verified 01/27/20 14:39 Consultations 01/27/20 15:48 ED Decision to Admit Stat 01/27/20 17:07 Consult Case Management - Discharge Planning Routine Consult Neurology Routine Ordered Studies 01/27/20 13:39 CT angio head w con Stat CT angio neck with con Stat CT head/brain wo con Stat 01/27/20 14:07 MR brain wo con Stat Hospital Course (1) Acute CVA (cerebrovascular accident): presented with dysarthria and left facial droop, woke up with this on 01/26, could have had stroke in the middle of the night was out of the tPA window at time of presentation MRI brain showed right frontoparietal ischemic stroke, small symptoms slightly improved did well with PT/OT, can return home HbA1c 5.3%, ruling out DM lipid panel showed LDL and HDL both close to goal, started on Lipitor due to stroke BP at goal on metoprolol and Losartan no carotid stenosis on CT angiogram of the neck will arrange for 30 day monitor to rule out paroxysmal atrial fibrillation follow up with PCP in 2 weeks and neurology in 6-8 weeks (2) HTN (hypertension): permissive HTN while hospitalized will resume metoprolol and Losartan on discharge (3) CKD (chronic kidney disease) stage 3, GFR 30-59 ml/min: Cr stable at baseline (4) DVT prophylaxis: SCDs, Heparin for DVT proph Total Time Total Time Spent Total Time Spent (In Minutes): 32 minutes Total Time Includes: Examination of the Patient, Discharge Planning, Medication Reconciliation and Communication With Other Providers (Dr. Kang) Discharge Plan Discharge Items Patient Disposition: Home - Self-Care Reason For Visit: CVA Discharge Diagnosis: Acute ischemic stroke Dyslipidemia Hypertension Condition on Discharge: Good Goals: improve strength and mobility medical management of stroke risk factors Activity: Resume your previous activity Non-emergency contact: Primary Care Provider Call non-emergency contact if: you have any medication questions and your symptoms worsen Follow-up/Referrals: Terri Kang MD [Physician] - (6-8 weeks) Marcin Montano PA-C [Primary Care Provider] - (1-2 weeks A CARDIAC EVENT MONITOR WILL BE MAILED TO YOUR HOME. THE KIT WILL INCLUDE EASY TO FOLLOW INSTRUCTIONS AND THE RESULTS WILL BE SENT TO MARCIN Mitchell.) Diet: Heart Healthy Addtl Attending Provider Instructions: Medications: - PLAVIX: 75mg daily, this replaces aspirin as antiplatelet therapy - LIPITOR: 40mg daily, this is statin medication for control of cholesterol but also to stabilize plaques and prevent further stroke Acute ischemic stroke in right frontoparietal cortex, causing left facial droop and difficulty speaking symptoms improving most likely cause was small vessel ischemia no significant carotid stenosis on CT angiogram of neck, normal echocardiogram, no atrial fibrillation on the monitor lipid panel shows that cholesterol is well controlled, but statin indicated due to stroke no evidence of diabetes, blood pressure well controlled we will arrange for a 30 day monitor to rule out paroxysmal atrial fibrillation as cause of stroke discharge to home on Plavix and Lipitor, continue taking metoprolol and Losartan stop taking aspirin follow up with PCP in two weeks and neurology in 6-8 weeks Risk Factors for Stroke: You can reduce your chances of stroke by working with your medical provider to adopt a healthy lifestyle. Some specific ways to lower your chance of stroke are: * If you are a smoker, now is the time to stop smoking cigarettes * If you are diabetic, improve the control of your blood sugars * Avoid excessive amounts of alcohol * Control high blood pressure * Lose weight if you are overweight * Be sure to lead an active lifestyle * Eat a healthy diet low in salt, cholesterol and fat You should know about other risk factors for stroke that you are unable to control. These include: * Age 55 years or older * Male gender * Certain racial groups: , or / * Family History of Stroke, Mini stroke or Heart Attack * Sickle Cell Disease Follow Up: It is important for you to keep your follow up appointments with your medical provider. Who to Call and When: Medical Emergencies: Call 911 immediately if you experience any of the following warning signs and symptoms of Stroke: * Sudden numbness or weakness of the face, arm or leg, especially on one side of the body * Sudden confusion, trouble speaking or understanding * Sudden trouble seeing in one or both eyes * Sudden trouble walking, dizziness, loss of balance or coordination * Sudden severe headache with no cause Do not delay calling 911 if you experience any warning signs or symptoms of a stroke. Delay in seeking medical attention may affect what treatments can be given to you. . Pending Studies at Discharge: No Stand-Alone Forms: Medications to Prevent Stroke, [facility], Smoking Cessation Medications and DC Order Prescriptions: New atorvastatin 40 mg Tablet 40 mg PO QAM 30 Days Qty: 30 RF: 3 clopidogrel 75 mg Tablet 75 mg PO QAM 30 Days Qty: 30 RF: 3 Continued metoprolol succinate [Toprol XL] 25 mg tablet extended release 24 hr 25 mg PO QAM RF: 0 losartan [Cozaar] 100 mg tablet 100 mg PO QAM RF: 0 Discontinued aspirin 650 mg Tablet,Delayed Release (Dr/Ec) 0 mg PO QID PRN (Reason: Pain) RF: 0 Discharge Orders: Discharge Order (Routine); Ordered 01/28/20 Ordered By: Law Rouse Admission Data Admit Date/Time: 01/27/20 16:00 Attending Provider: Law Rouse Admit Provider: Marcin Gardiner Primary Care Provider: Marcin Montano Other Providers: Marcin Gardiner ; David Quiroz III Other Interventions: Discharge Summary Assessment (RN) Last Done: 01/28/20 15:27 Coding Level of Care Code D/C Day Management >30 mins Diagnoses Acute CVA (cerebrovascular accident) I63.9 HTN (hypertension) I10 CKD (chronic kidney disease) stage 3, GFR 30-59 ml/min N18.3 DVT prophylaxis Z29.9
--- NOTE | 2020-01-28 16:43 | Neurology Consultation ---
Date of Consultation January 28, 2020 Assessment & Plan (1) CKD (chronic kidney disease) stage 3, GFR 30-59 ml/min: (2) Acute CVA (cerebrovascular accident): Sun Hinojosa is an 79 yo woman w/ PMH of HTN, prior stroke without residual deficits and CKDIII who p/t [facility] with acute onset of left facial droop, left facial numbness and dysarthria. Symptom localization: right MCA territory Stroke mechanism: most likely cardioembolic vs cryptogenic Stroke WorkUp: - CT head: no hemorrhage, moderate SVID, generalized atrophy - CTA head/neck: no LVO, high grade stenosis or aneurysm; dominant left vertebral artery; enlarged thyroid - MRI brain: small linear infarct in the right posterior frontal lobe, generalized atrophy, moderate SVID - TTE: EF 55-60%, mild LVH, mild MR< mild TR - Telemetry: NSR - A1c: 5.3 - FLP: 90 - Troponin: negative Stroke Management: - Acute treatment: ASA - Continuous cardiac monitoring, recommend 30 day event monitor as outpatient if telemetry here unrevealing - Vitals, Neurochecks, NIHSS per unit routine - BP parameters: SBP CAP 180, restart home anti-hypertensives for permissive HTN, IV Labetalol/Hydralazine PRN - Consult speech, PT, OT for supportive management - Will securities counselor concerning stroke education, smoking cessation, healthy diet, physical activity, weight loss - Follow up with PCP for assistance with outpatient goals (BP <135/85, LDL <70, A1c <7) - Follow up in neurology clinic in 6-8 weeks (may need to do a telehealth visit due to COVID19) Secondary Stroke Prevention: - Antiplatelet: plavix 75mg daily - Anticoagulation: Not indicated at this time - Statin: Atorvastatin 40mg daily HTN: - BP parameters, as above FEN/GI: - Diet: Cardiac HH diet/PO meds given absence of bulbar signs or symptoms - Monitor lytes and replete PRN Glucose Control: - Sliding scale insulin and accuchecks per primary team to avoid hyperglycemia Thank you for this interesting consult. Plan of care was discussed with primary team. Please call with any questions. (3) HTN (hypertension): History of Present Illness Attending Physician: Law Rouse, DO History of Present Illness Sun Hinojosa is an 79 yo woman w/ PMH of HTN, prior stroke without residual deficits and CKDIII who p/t [facility] with acute onset of left facial droop, left facial numbness and dysarthria. 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 In the ED, vitals unremarkable except for BP 214/102. Labs notable for WBC 7.39, Hb 13.3, Plts 208, Cr 1.44, glucose 100, INR 1.0, LFTs WNL, troponin negative. EKG showed NSR w/ left axis deviation. Independent review of CTH shows no hemorrhage, moderate SVID, generalized atrophy. CTA head and neck showed no LVO, high grade stenosis or aneurysm; dominant left vertebral artery; enlarged thyroid. MRI brain shows a small linear infarct in the right posterior frontal lobe, generalized atrophy, moderate SVID. She reports taking an aspirin at home. She was admitted for stroke workup. Stroke Workflow: Where patient arrived from: home Time patient undergoes CT head: 13:39pm Time patient undergoes advanced imagin:07pm CT ASPECT: 10 Time IV tpa is given: NA tPA bolus: NA tPA dose: NA If tpa not given, why not: Outside of time window If delay >60min after hospital arrival, why: n/a If no IA therapy, why not: No LVO on CTA Patient Features: Admission NIHSS: 2 Admission Modified Jordan Scale: 1 Time patient last seen well: evening of 01/26/20 Wake up stroke: Yes Intubation status: Not intubated Stroke Risk Factors: Hypertension: Y Hyperlipidemia: N Atrial Fib: N Tobacco: N Diabetes: N Taking NOAC or warfarin: N Allergies Allergy/AdvReac Type Severity Reaction Status Date / Time No Known Allergies Allergy Mild 0 Verified 01/27/20 14:39 Home Medications Home Medications Medication Instructions Recorded Confirmed Type losartan [Cozaar] 100 mg PO QAM 01/27/20 01/27/20 History metoprolol succinate [Toprol XL] 25 mg PO QAM 01/27/20 01/27/20 History atorvastatin 40 mg PO QAM 30 Days #30 tab 01/28/20 Rx clopidogrel 75 mg PO QAM 30 Days #30 tab 01/28/20 Rx Patient History Medical History (Updated 01/28/20 @ 16:05 by Law Rouse DO) CKD (chronic kidney disease) stage 3, GFR 30-59 ml/min Hypertension (Inactive) Hypertensive emergency (Inactive) Surgical History No pertinent past surgical history Family History (Updated 01/27/20 @ 15:59 by Love Gardiner DO) Denies family history of Stroke Social History (Updated 01/27/20 @ 15:59 by Love Gardiner DO) Preferred Language: Macedonian Communication Ability: Effective Beliefs That Will Affect Care: None marital status: Current Living Situation: Spouse Feels Safe at Home: Yes Smoking Status: Never smoker Number of Years Since Quit: 35 ; Hx Alcohol Use: No Hx Substance Use: No Review of Systems Review of Systems: 14 point review of systems completed and negative except as in HPI. Physical Exam Physical Exam: General Exam: GEN: NAD, sitting down in examination bed. HEENT: No conjunctival injection, no rhinorrhea. CV: RRR on monitor, no significant edema. PULM: Nonlabored respirations on room air. Neuro Exam: MS: Awake and Alert. Oriented to person, place, and date. Speech fluent and appropriate without dysarthria or paraphasic errors. Language intact including naming, comprehension, repetition. Cognition and memory grossly intact. Attention intact. No neglect. CN: Visual english full. No extinction to double simultaneous stimuli. Normal fundoscopic exam. PERRLA OU. EOMI without nystagmus. Facial sensation intact to LT. Facial muscles full and symmetric. Hearing intact to finger rub bilaterally. Uvula midline with symmetric palatal elevation. SCMs and shoulder shrug normal. Tongue midline. MOTOR: Normal bulk and tone. No pronator drift. BUE strength 5/5 at deltoids, biceps, triceps, wrist flexors and extensors, and hand grasp bilaterally. BLE strength 5/5 at iliopsoas, hamstrings, quadriceps, tibialis anterior, and gastrocnemius bilaterally. REFLEXES: 1+ at biceps, triceps, brachioradialis, 1+ patella, and absent Achilles bilaterally. Flexor plantar responses bilaterally. SENSORY: Intact to LT throughout, no extinction to double simultaneous stimuli. COORDINATION: No dysmetria or ataxia on [id number] bilaterally. Normal Ginger bilaterally. GAIT: Deferred due to physical status. NIH STROKE SCALE 1A. Level of Consciousness (0-3) = 0 1B. LOC Questions (0-2) = 0 1C. LOC Commands (0-2) = 0 2. Best Horizontal Gaze (0-2) = 0 3. Visual English (0-3) = 0 4. Facial Palsy (0-3) = 1 5. Motor Arm Right (0-4) = 0 Left (0-4) = 0 6. Motor Leg Right (0-4) = 0 Left (0-4) = 0 7. Limb Ataxia (0-2) = 0 8. Sensory (0-2) = 0 9. Best Language (0-3) = 0 10. Dysarthria (0-2) = 0 11. Extinction and Inattention (0-2) = 0 NIHSS TOTAL = 0 Results & Data Vital Signs (Past 12 Hours) Vital Signs Temp Pulse Pulse Resp BP BP BP 01/28/20 15:27 37.0 C 64 19 158/80 H 01/28/20 10:58 37.0 C 74 19 136/77 01/28/20 10:00 66 01/28/20 08:37 60 13 170/73 H 01/28/20 07:56 36.8 C 56 L 17 190/75 H Pulse Ox 01/28/20 15:27 94 01/28/20 10:58 94 01/28/20 10:00 01/28/20 08:37 01/28/20 07:56 93 PG Care Time/CCT Total # of Minutes Spent Total Time Spent with Patient: Total time spent is greater than 50% in coordination of care (as documented) at patient's floor/unit and/or counseling patient: Coding Level of Care Code 76658 Initial Inpt Care Lvl 3 Diagnoses CKD (chronic kidney disease) stage 3, GFR 30-59 ml/min N18.3 Acute CVA (cerebrovascular accident) I63.9 HTN (hypertension) I10
--- NOTE | 2020-01-30 16:33 | Pharmacy Report ---
Pharmacist Post D/C Phone Note - Phone Note: Date of phone call: January 30, 2020. Individual with whom pharmacist spoke to: SLAVA RIVERA The following questions were reviewed during the phone call with responses listed below each: Can you tell me the medications that you are currently taking as well as when and how you take each medication? - See Table Below - Patient was able to correctly state each medication, including new medications, with correct dose/frequency/route/instructions When have you missed any doses of your medications? - Patient has not missed any doses since being discharged What side effects are you having from your medications, specifically, the new medications you were started on? - Patient reports no new side effects since discharge - Encouraged patient to continue to monitor for side effects as they can occur at any time while taking medication What questions do you have about your medications? - Patient did not have any questions pertaining to her medications What problems are you having obtaining your medications? - Patient reports not having any issues with obtaining medications from pharmacy - Patient was able to locate number of refills on each prescription bottle When is your next appointment with your primary care doctor? - Patient reports she has a follow-up appointment with EDWIN Guadarrama, on February 13, 2020 Additional comments: - Patient was confused because she received a heart monitor in the mail and was not aware she had any heart issues. I explained to her that this is a cardiac event monitor and it will detect any irregular heart beats that may occur which can lead to a diagnosis of atrial fibrillation, a possible cause of her stroke. She verbalized understanding and agreed to wear monitor for the next 30 days. As per the Pharmacist Discharge Counseling for Stroke Patients Protocol, this phone call has been completed within 72 hours of discharge. Thank you for allowing us to be involved in the care of this patient. - Home Medications: Home Medications Medication Instructions Recorded Confirmed losartan [Cozaar] 100 mg PO QAM 01/27/20 01/27/20 metoprolol succinate [Toprol XL] 25 mg PO QAM 01/27/20 01/27/20 New Rx's Medication Instructions Recorded atorvastatin 40 mg PO QAM 30 Days #30 tab 01/28/20 clopidogrel 75 mg PO QAM 30 Days #30 tab 01/28/20
== END 2020-01-28 16:10 | disposition home or self-care (01) | DRG 65 ==
LOC: ED 13:31 → 2E 16:00 → SUATTDRO 16:00 → 2E 16:29

== ENCOUNTER 2023-10-01 18:09 | Inpatient (IN) ==
--- NOTE | 2023-10-01 18:34 | ED Triage Note ---
Date of Service October 01, 2023 History of Present Illness This patient was briefly evaluated while in triage. An abbreviated physical exam was performed. This patient is a 83-year-old Female who presents to the ED for evaluation after a fall. Pt. states she tripped on a bucket yesterday. Landed on the left elbow. Laid on the ground all night and was not found until this afternoon. Visitor suspects she was on the floor for at least 15 hours. Pt. is not on blood thinners. States bilateral knees are black and blue. Physical Exam VITALS: Vitals are noted on the nurse's note and reviewed by myself. GENERAL: This is an 83 year old female, in no acute distress, nondiaphoretic, well-developed well-nourished. SKIN: Ecchymosis of the left elbow. HEAD: Normocephalic atraumatic. EYES: Conjunctivae without injection, sclerae without icterus. NECK: No JVD. LUNGS: No retractions or accessory muscle use. MUSCULOSKELETAL: Normal gait. NEURO: Patient was alert and oriented to person place and time. No focal neurological deficits. Initial orders for labs and / or imaging were placed and patient was placed in the waiting area until a bed is available. Please see further documentation for the full ED course.
[2023-10-01] MEDS ORDERED: SODIUM CHLORIDE 0.9% 500 ML IV SCH (18:45)
[2023-10-01] MEDS ORDERED: SODIUM CHLORIDE 0.9% 1,000 ML IV ONE (19:25)
[2023-10-01] MEDS ORDERED: CEFEPIME 2,000 MG/20 ML VIAL IV STA (19:25)
[2023-10-01 19:28] LABS: Hematocrit (blood only) 42.8 % (37.0-47.0); Hemoglobin 14.1 g/dl (12.0-16.0); Mean Corpuscular Hemoglobin 29.8 pg (25.0-34.0); Mean Corpuscular Hgb Conc 32.9 g/dL (32.0-36.0); Mean Corpuscular Volume 90.5 fL (80.0-100.0); Mean Platelet Volume 11.4 fL (9.4-12.4); Platelet Count 283 K/uL (130-400); RDW Coefficient of Variation 13.5 % (11.5-14.5); RDW Standard Deviation 44.8 fL (36.4-46.3); Red Blood Count 4.73 M/uL (4.20-5.40); White Blood Count 28.26 K/ul (4.8-10.8)
--- NOTE | 2023-10-01 19:39 | CT Scan Report ---
HEAD CT NONCONTRAST CT DOSE: HISTORY: fall TECHNIQUE: Multiaxial CT images of the head were performed without the use of intravenous contrast. A utomated exposure control was utilized for this study. A dose lowering technique was utilized adheri ng to the principles of ALARA. Comparison: Head CT 01/27/2020. Findings: The paranasal sinuses and mastoid air cells are clear. The calvarium and skull base are int act. There is no mass, hematoma, midline shift, acute infarct. White matter hypodensity is nonspecifi c but suggestive of microvascular ischemic change. The ventricles and sulci demonstrate mild age-rela shoshana involutional changes. Old left frontal lobe infarct again noted. Old left cerebellar infarcts. Impression: No acute intracranial abnormality. Atrophy and microvascular ischemic changes. ACT 112: Negative or not required by law. Electronically signed by: Bobby Romano M.D. 10/01/2023 7:37 PM
[2023-10-01 19:41] LABS: Alanine Aminotransferase 24 U/L (7-52); Albumin Globulin Ratio 1.6 (0.9-2); Albumin Level 4.2 gm/dl (3.4-5.0); Alkaline Phosphatase 84 U/L (34-104); Anion Gap 11 (3-11); Aspartate Aminotransferase 58 U/L (13-39); Bilirubin,Total 1.8 mg/dl (0.2-1.0); Blood Urea Nitrogen 35 mg/dl (6-23); Calcium 9.4 mg/dl (8.6-10.3); Carbon Dioxide 23 mmol/L (21-32); Chloride 104 mmol/L (98-107); Creatine Kinase 1129 U/L (26-192); Est GFR (African American) 39.9 ml/min; Est GFR (Non-African American) 34.4 ml/min; Globulin 2.6 gm/dl (2.5-4.0); Glucose 123 mg/dl (70-99(Fasting)); Magnesium 2.2 mg/dl (1.7-2.4); Potassium 4.1 mmol/L (3.5-5.1); Sodium 138 mmol/L (136-145); Total Protein 6.8 gm/dl (6.0-8.3)
--- NOTE | 2023-10-01 19:44 | CT Scan Report ---
CERVICAL SPINE CT CT DOSE: 1205.68 mGy.cm HISTORY: Neck pain. fall TECHNIQUE: Multiaxial CT images of the cervical spine were performed and reformatted in the sagittal and coronal plane without the use of contrast. A dose lowering technique was utilized adhering to th e principles of ALARA. COMPARISON: CTA neck 01/27/2020.. FINDINGS: No fractures. No subluxation. Prevertebral soft tissues and the C1-C2 interval are intact. No pneumothorax. Large predominant left-sided multinodular thyroid goiter again noted. This is simila r to the prior study. Moderate to severe disc space narrowing at C5-C7. Moderate facet degenerative c hanges throughout the cervical spine. IMPRESSION: 1. No fractures within the cervical spine. 2. Multinodular thyroid goiter again noted. ACT 112: Negative or not required by law. Electronically signed by: Bobby Romano M.D. 10/01/2023 7:42 PM
[2023-10-01 19:49] LABS: Basophils # (auto) 0.07 K/uL (0.00-0.20); Basophils % (auto) 0.2 %; Immature Granulocytes # (auto) 0.25 K/uL (0.01-0.20); Immature Granulocytes % (auto) 0.9 %; Lymphocytes # (auto) 1.27 K/uL (1.20-3.40); Lymphocytes % (auto) 4.5 %; Monocytes # (auto) 1.67 K/uL (0.11-0.59); Monocytes % (auto) 5.9 %; Neutrophils % (auto) 88.5 %
[2023-10-01 19:52] LABS: Troponin I High Sensitivity 58.8 pg/ml (0-14)
[2023-10-01 19:57] LABS: Thyroid Stimulating Hormone 1.405 uIu/ml (0.300-4.500)
--- NOTE | 2023-10-01 19:57 | XRay Report ---
XR chest 1V portable HISTORY: weakness, fall COMPARISON: Chest 06/06/2019. FINDINGS: No pneumothorax. No pleural fusions. The heart remains mildly enlarged. Mild diffuse inters titial thickening which is likely chronic. No new focal lung consolidations to suggest a pneumonia. N o evidence for pulmonary edema. Degenerative changes again noted within the shoulders. There are calc ifications within the aortic knob. No acute fractures identified. IMPRESSION: No significant change compared to the prior study. No acute process. ACT 112: Negative or not required by law. Electronically signed by: Bobby Romano M.D. 10/01/2023 7:56 PM
[2023-10-01 20:02] LABS: Prothrombin Time 10.5 Seconds (9.0-12.0)
--- NOTE | 2023-10-01 20:04 | XRay Report ---
XR humerus LT 2V, XR elbow LT min 3V routine CLINICAL HISTORY: Left elbow and arm pain, swelling, bruising, fall yesterday COMPARISON STUDY: None. FINDINGS: There is a slightly comminuted and displaced supracondylar fracture within the distal left humerus. No dislocation at the elbow joint. There is a left elbow effusion and soft tissue swelling. The fracture demonstrates up to 1.4 cm of medial displacement. No acute fracture or dislocation withi n the proximal left humerus. Degenerative changes noted at the left shoulder. IMPRESSION: Slightly comminuted and displaced supracondylar fracture within the distal left humerus. ACT 112: Negative or not required by law. Electronically signed by: Bobby Romano M.D. 10/01/2023 8:02 PM
--- NOTE | 2023-10-01 20:07 | XRay Report ---
XR knee LT 3V, XR knee RT 3V CLINICAL HISTORY: Bilateral knee pain. Fall. COMPARISON STUDY: None. FINDINGS: The bones are osteopenic. Mild vascular calcifications are noted. No acute fracture or disl ocation within the right or left knee. No significant soft tissue swelling. No significant knee effus ions. IMPRESSION: No fractures within the right or left knee. ACT 112: Negative or not required by law. Electronically signed by: Bobby Romano M.D. 10/01/2023 8:05 PM
[2023-10-01] MEDS ORDERED: VANCOMYCIN CONSULT ACTIVE PRN (20:45)
[2023-10-01] MEDS ORDERED: VANCOMYCIN HCL 1,750 MG in SODIUM CHLORIDE 0.9% 500 ML IV ONE (20:45)
[2023-10-01] MEDS ORDERED: SODIUM CHLORIDE 0.9% 500 ML IV ONE (20:46)
[2023-10-01 20:47] LABS: Appearance Urine Turbid (Clear); Bacteria Urine Automated 3+ (Negative); Blood Urine Trace (Negative); Color Urine Orange; Epithelial Cell Urine Auto >30 /lpf (0-5); Glucose Urine UA Negative (Negative); Ketones Urine 1+ (Negative); Leukocyte Esterase Urine Trace (Negative); Nitrite Urine Positive (Negative); Protein Urine 2+ (Negative); RBC Urine Automated 0-4 /hpf (0-4); Urobilinogen Urine Negative (Negative); WBC Urine Automated >30 /hpf (0-5); pH Urine 5.5 (4.5-7.5)
[2023-10-01 20:58] LABS: Bilirubin Urine 2+ (Negative)
[2023-10-01 21:01] LABS: Cast Urine Automated >30 /lpf (0-5)
[2023-10-01 21:33] LABS: Adenovirus PCR Not Detected (NotDetected); Bordetella parapertussis PCR Not Detected (NotDetected); Bordetella pertussis PCR Not Detected (NotDetected); Chlamydia pneumoniae PCR Not Detected (NotDetected); Coronavirus 229E PCR Not Detected (NotDetected); Coronavirus CoV-2 (COVID19)PCR Not Detected (NotDetected); Coronavirus HKU1 PCR Not Detected (NotDetected); Coronavirus NL63 PCR Not Detected (NotDetected); Coronavirus OC43PCR Not Detected (NotDetected); Human Metapneumovirus PCR Not Detected (NotDetected); Influenza A PCR Not Detected (NotDetected); Influenza B PCR Not Detected (NotDetected); Mycoplasma pneumoniae PCR Not Detected (NotDetected); Parainfluenza Virus 1 PCR Not Detected (NotDetected); Parainfluenza Virus 2 PCR Not Detected (NotDetected); Parainfluenza Virus 3 PCR Not Detected (NotDetected); Parainfluenza Virus 4 PCR Not Detected (NotDetected); Respiratory Syncytial VirusPCR Not Detected (NotDetected); Rhinovirus/Enterovirus PCR Not Detected (NotDetected)
--- NOTE | 2023-10-01 21:58 | History & Physical Report ---
Date of Service October 01, 2023 Assessment & Plan (1) Supracondylar fracture of humerus: Plan: 83yo female with ground level fall and prolonged down time of 15+ hours presenting with left supracondylar humerus fracture and rhabdomyolysis. Splint has been placed. Pain is well controlled. Patient NV intact. -Admit to medical with telemetry -Pain control with Tylenol PRN -Orthopedic Surgery consultation appreciated -PT/OT evaluation appreciated. Patient currently lives alone and is independent. (2) Rhabdomyolysis: Plan: Atraumatic rhabdomyolysis with CK of 1129. Patient with blood on UA, absence of RBCs. Renal function is at baseline. Olivas catheter is in place and she has been administered 2L of NSS. -Continue aggressive IVF - LR at 200mL/hr x 3 liters -Monitor UOP, goal 200-300mL/hr for rhabdomyolysis -Repeat chemistry and CK level in AM (3) UTI (urinary tract infection): Plan: UA suggestive of infection. Significant leukocytosis with WBC=28.26 Patient with incontinence, laid in waste for some time which is likely cause of patient's infection. She is afebrile, HD stable and non-toxic in appearance. Patient has been given Cefepime and Vancomycin in the ER. -Follow urine culture -Continue antibiotics - Ceftriaxone 2gm IV daily -Tylenol as needed for pain or fever (4) Elevated troponin: Plan: Patient denies chest pain. Troponin 58.8 --> 57. EKG with ST, PACs present, no acute ischemic changes. -Telemetry monitoring -Check 2D echo in AM (5) CKD (chronic kidney disease) stage 3, GFR 30-59 ml/min: Plan: BUN and Cr near baseline -Monitor renal function -Avoid nephrotoxic agents -Renal dosing where needed -BMP in AM (6) HTN (hypertension): Plan: Chronic. Stable -Continue Amlodipine 10mg po daily -Continue Metoprolol 25mg po daily -Monitor BP (7) History of stroke: Plan: Chronic. Patient has Plavix listed on her home medication list but is uncertain if she has been taking it -Continue Plavix 75mg po qAM -Continue Atorvastatin 40mg po qAM History of Present Illness Chief Complaint: found down Primary Care Provider: Love Montano PA-C Sun Hinojosa is a pleasant 83yo female with history of HTN, CKD and prior CVAs presenting from home after being found down. She reports that she was filling the pellet stove yesterday and she tripped over the bucket. She fell to the floor and landed predominantly on her right arm. She may have hit her head but did not lose consciousness. She was unable to get up and laid on the floor for at least 15 hours before her family found her. She was incontinent of urine and feces. Patient states that she was in her usual state of health before the fall. She denies fever, chills, cough, SOB. Denies abdominal pain, nausea, vomiting or diarrhea. She has no urinary complaints or back pain. In the ER she is afebrile, HD stable. ER Course: Cefepime 2gm IV Vancomycin 1750mg IV NSS x 2L Olivas placed Allergies Allergy/AdvReac Type Severity Reaction Status Date / Time No Known Allergies Allergy Mild 0 Verified 10/01/23 20:04 Home Medications Medication Instructions Recorded Confirmed Type metoprolol succinate 25 mg 25 mg PO QAM 01/27/20 10/01/23 History tablet,extended release 24 hr (Toprol XL) atorvastatin 40 mg tablet 40 mg PO QAM 30 days #30 tabs 01/28/20 10/01/23 Rx clopidogrel 75 mg tablet 75 mg PO QAM 30 days #30 tabs 01/28/20 10/01/23 Rx Andra's Leg Cramps 1 dose PO DIRECTED 10/01/23 10/01/23 History Total Beets 1 tab PO DAILY 10/01/23 10/01/23 History amlodipine 10 mg tablet 10 mg PO DAILY 10/01/23 10/01/23 History ibuprofen 200 mg tablet 400 mg PO Q6H PRN PAIN/FEVER 10/01/23 10/01/23 History turmeric 400 mg capsule 400 mg PO DAILY 10/01/23 10/01/23 History Past Med/Surg History Medical History (Updated 10/01/23 @ 22:50 by Rachelle Farfan DO) History of stroke Hypertension CKD (chronic kidney disease) stage 3, GFR 30-59 ml/min Surgical History No pertinent past surgical history Family History Denies family history of Stroke Social History Smoking Status: Never smoker Hx Alcohol Use: No Hx Substance Use: No Preferred Language: Wolof Communication Ability: Effective Beliefs That Will Affect Care: None marital status: Current Living Situation: Spouse Feels Safe at Home: Yes Assistive Devices: None Review of Systems Review of Systems: All systems reviewed & are unremarkable except as noted in HPI & below Physical Exam Physical Exam: General: patient resting comfortably, NAD, non-toxic in appearance, AA&O x 4 Skin: bruises present on bilateral knees HEENT: NC/AT, PERRL, EOMI, anicteric sclera, conjunctiva without injection, external ear normal to inspection and nontender, nares patent, slightly dry muc us membranes, dentition intact, no oropharyngeal lesions, neck supple, trachea midline, no LAD, no thyromegaly, no JVD Heart: +S1/S2, regular with ectopy, no m/r/g Lungs: equal air entry bilaterally, no rales/rhonchi/wheezes Abd: +BS, soft, NT/ND, no masses/organomegaly/ascites Ext: warm, 2+ pulses in UE/LE bilaterally, no clubbing/cyanosis or edema, LUE with splint and sling Neuro: nonfocal, patient AA&O x 4, speech intact, no facial droop, moving all extremities on command with equal strength 5/5 Results & Data Results & Data Vital Signs (Past 12 Hours) Vital Signs Temp Pulse Pulse Resp BP BP Pulse Ox 10/01/23 20:30 81 18 133/78 96 10/01/23 20:16 96 10/01/23 18:32 36.8 C 130 H 20 150/109 H 97 O2 Del Method 10/01/23 20:30 Room Air 10/01/23 20:16 Room Air 10/01/23 18:32 Room Air Laboratory Results Laboratory Results WBC 28.26 K/ul (4.8-10.8) H 10/01/23 19:06 RBC 4.73 M/uL (4.20-5.40) 10/01/23 19:06 Hgb 14.1 g/dl (12.0-16.0) 10/01/23 19:06 Hct 42.8 % (37.0-47.0) 10/01/23 19:06 MCV 90.5 fL (80.0-100.0) 10/01/23 19:06 MCH 29.8 pg (25.0-34.0) 10/01/23 19:06 MCHC 32.9 g/dL (32.0-36.0) 10/01/23 19:06 RDW Std Deviation 44.8 fL (36.4-46.3) 10/01/23 19:06 RDW Coeff of Cj 13.5 % (11.5-14.5) 10/01/23 19:06 Plt Count 283 K/uL (130-400) 10/01/23 19:06 MPV 11.4 fL (9.4-12.4) 10/01/23 19:06 Immature Gran % (Auto) 0.9 % 10/01/23 19:06 Neut % (Auto) 88.5 % 10/01/23 19:06 Lymph % (Auto) 4.5 % 10/01/23 19:06 [place] % (Auto) 5.9 % 10/01/23 19:06 Eos % (Auto) 0.0 % 10/01/23 19:06 Baso % (Auto) 0.2 % 10/01/23 19:06 Neut # (Auto) 25.00 K/uL (1.40-6.50) H 10/01/23 19:06 Lymph # (Auto) 1.27 K/uL (1.20-3.40) 10/01/23 19:06 [place] # (Auto) 1.67 K/uL (0.11-0.59) H 10/01/23 19:06 Eos # (Auto) 0.00 K/uL (0.00-0.50) 10/01/23 19:06 Baso # (Auto) 0.07 K/uL (0.00-0.20) 10/01/23 19:06 Immature Gran # (Auto) 0.25 K/uL (0.01-0.20) H 10/01/23 19:06 PT 10.5 Seconds (9.0-12.0) 10/01/23 19:06 INR 1.0 (0.9-1.1) 10/01/23 19:06 Sodium 138 mmol/L (136-145) 10/01/23 19:06 Potassium 4.1 mmol/L (3.5-5.1) 10/01/23 19:06 Chloride 104 mmol/L (98-107) 10/01/23 19:06 Carbon Dioxide 23 mmol/L (21-32) 10/01/23 19:06 Anion Gap 11 (3-11) 10/01/23 19:06 BUN 35 mg/dl (6-23) H 10/01/23 19:06 Creatinine 1.40 mg/dl (0.6-1.2) H 10/01/23 19:06 Est Cr Clr Drug Dosing Not Reportable 10/01/23 19:06 Est GFR ( Amer) 39.9 ml/min 10/01/23 19:06 Est GFR (Non-Af Amer) 34.4 ml/min 10/01/23 19:06 BUN/Creatinine Ratio 25.0 (10-20) H 10/01/23 19:06 Glucose 123 mg/dl (70-99(Fasting)) H 10/01/23 19:06 Lactate 2.3 mmol/L (0.4-2.0) H* 10/01/23 21:19 Calcium 9.4 mg/dl (8.6-10.3) 10/01/23 19:06 Magnesium 2.2 mg/dl (1.7-2.4) 10/01/23 19:06 Total Bilirubin 1.8 mg/dl (0.2-1.0) H 10/01/23 19:06 AST 58 U/L (13-39) H 10/01/23 19:06 ALT 24 U/L (7-52) 10/01/23 19:06 Alkaline Phosphatase 84 U/L (34-104) 10/01/23 19:06 Total Creatine Kinase 1129 U/L (26-192) H 10/01/23 19:06 Troponin I High Sens 57.0 pg/ml (0-14) H* 10/01/23 21:19 Total Protein 6.8 gm/dl (6.0-8.3) 10/01/23 19:06 Albumin 4.2 gm/dl (3.4-5.0) 10/01/23 19:06 Globulin 2.6 gm/dl (2.5-4.0) 10/01/23 19:06 Albumin/Globulin Ratio 1.6 (0.9-2) 10/01/23 19:06 TSH 1.405 uIu/ml (0.300-4.500) 10/01/23 19:06 Urine Color Pershing 10/01/23 20:26 Urine Appearance Turbid (Clear) A 10/01/23 20: Urine pH 5.5 (4.5-7.5) 10/01/23 20: Ur Specific [place] 1.030 (1.000-1.030) 10/01/23 20: Urine Protein 2+ (Negative) H 10/01/23 20: Urine Glucose (UA) Negative (Negative) 10/01/23 20: Urine Ketones 1+ (Negative) H 10/01/23 20: Urine Blood Trace (Negative) H 10/01/23 20: Urine Nitrite Positive (Negative) A 10/01/23 20: Urine Bilirubin 2+ (Negative) H 10/01/23 20: Urine Urobilinogen Negative (Negative) 10/01/23 20:26 Ur Leukocyte Esterase Trace (Negative) H 10/01/23 20:26 Urine WBC (Auto) >30 /hpf (0-5) H 10/01/23 20: Urine RBC (Auto) 0-4 /hpf (0-4) 10/01/23 20: U Hyaline Cast (Auto) >30 /lpf (0-5) H 10/01/23 20: U Epithel Cells (Auto) >30 /lpf (0-5) H 10/01/23 20: Urine Bacteria (Auto) 3+ (Negative) H 10/01/23 20: Granular Casts 1-5 /lpf (0) H 10/01/23 20: Urine Yeast Not Reportable 10/01/23 20: Adenovirus (PCR) Not Detected (NotDetected) 10/01/23 Unknown B. pertussis DNA (PCR) Not Detected (NotDetected) 10/01/23 Unknown B.parapertussis DNA PCR Not Detected (NotDetected) 10/01/23 Unknown C. pneumoniae DNA (PCR) Not Detected (NotDetected) 10/01/23 Unknown Coronavirus OC43 (PCR) Not Detected (NotDetected) 10/01/23 Unknown Coronavirus HKU1 (PCR) Not Detected (NotDetected) 10/01/23 Unknown Coronavirus 229E (PCR) Not Detected (NotDetected) 10/01/23 Unknown SARS-CoV-2 (PCR) Not Detected (NotDetected) 10/01/23 Unknown Coronavirus NL63 (PCR) Not Detected (NotDetected) 10/01/23 Unknown Human Metapneumovir PCR Not Detected (NotDetected) 10/01/23 Unknown Influenza Type A (PCR) Not Detected (NotDetected) 10/01/23 Unknown Influenza Type B (PCR) Not Detected (NotDetected) 10/01/23 Unknown M. pneumoniae (PCR) Not Detected (NotDetected) 10/01/23 Unknown Parainfluenza 1 (PCR) Not Detected (NotDetected) 10/01/23 Unknown Parainfluenza 2 (PCR) Not Detected (NotDetected) 10/01/23 Unknown Parainfluenza 3 (PCR) Not Detected (NotDetected) 10/01/23 Unknown Parainfluenza 4 (PCR) Not Detected (NotDetected) 10/01/23 Unknown RSV (PCR) Not Detected (NotDetected) 10/01/23 Unknown Entero/Rhino (PCR) Not Detected (NotDetected) 10/01/23 Unknown Impressions Cervical Spine CT 10/01/23 18:[address] DOSE: 1205.68 mGy.cm HISTORY: Neck pain. fall TECHNIQUE: Multiaxial CT images of the cervical spine were performed and reforma tted in the sagittal and coronal plane without the use of contrast. A dose lowering technique was utilized adhering to the principles of ALARA. COMPARISON: CTA neck 01/27/2020.. FINDINGS: No fractures. No subluxation. Prevertebral soft tissues and the C1-C2 interval are intact. No pneumothorax. Large predominant left-sided multinodular thyroid goiter again noted. This is similar to the prior study. Moderate to severe disc space narrowing at C5-C7. Moderate facet degenerative changes throughout the cervical spine. IMPRESSION: 1. No fractures within the cervical spine. 2. Multinodular thyroid goiter again noted. ACT 112: Negative or not required by law. Electronically signed by: Bobby Romano M.D. 10/01/2023 7:42 PM Chest X-Ray 10/01/23 18:34 XR chest 1V portable HISTORY: weakness, fall COMPARISON: Chest 06/06/2019. FINDINGS: No pneumothorax. No pleural fusions. The heart remains mildly enlarged. Mild diffuse interstitial thickening which is likely chronic. No new focal lung consolidations to suggest a pneumonia. No evidence for pulmonary edema. Degenerative changes again noted within the shoulders. There are calcifications within the aortic knob. No acute fractures identified. IMPRESSION: No significant change compared to the prior study. No acute process. ACT 112: Negative or not required by law. Electronically signed by: Bobby Romano M.D. 10/01/2023 7:56 PM Elbow X-Ray 10/01/23 18:34 XR humerus LT 2V, XR elbow LT min 3V routine CLINICAL HISTORY: Left elbow and arm pain, swelling, bruising, fall yesterday COMPARISON STUDY: None. FINDINGS: There is a slightly comminuted and displaced supracondylar fracture wi thin the distal left humerus. No dislocation at the elbow joint. There is a left elbow effusion and soft tissue swelling. The fracture demonstrates up to 1.4 cm of medial displacement. No acute fracture or dislocation within the proximal left humerus. Degenerative changes noted at the left shoulder. IMPRESSION: Slightly comminuted and displaced supracondylar fracture within the distal left humerus. ACT 112: Negative or not required by law. Electronically signed by: Bobby Romano M.D. 10/01/2023 8:02 PM Humerus X-Ray 10/01/23 18:34 XR humerus LT 2V, XR elbow LT min 3V routine CLINICAL HISTORY: Left elbow and arm pain, swelling, bruising, fall yesterday COMPARISON STUDY: None. FINDINGS: There is a slightly comminuted and displaced supracondylar fracture within the distal left humerus. No dislocation at the elbow joint. There is a left elbow effusion and soft tissue swelling. The fracture demonstrates up to 1.4 cm of medial displacement. No acute fracture or dislocation within the proximal left humerus. Degenerative changes noted at the left shoulder. IMPRESSION: Slightly comminuted and displaced supracondylar fracture within the distal left humerus. ACT 112: Negative or not required by law. Electronically signed by: Bobby Romano M.D. 10/01/2023 8:02 PM Knee X-Ray 10/01/23 18:34 XR knee LT 3V, XR knee RT 3V CLINICAL HISTORY: Bilateral knee pain. Fall. COMPARISON STUDY: None. FINDINGS: The bones are osteopenic. Mild vascular calcifications are noted. No acute fracture or dislocation within the right or left knee. No significant soft tissue swelling. No significant knee effusions. IMPRESSION: No fractures within the right or left knee. ACT 112: Negative or not required by law. Electronically signed by: Bobby Romano M.D. 10/01/2023 8:[address] 10/01/23 18:[address] DOSE: HISTORY: fall TECHNIQUE: Multiaxial CT images of the head were performed without the use of intravenous contrast. Automated exposure control was utilized for this study. A dose lowering technique was utilized adhering to the principles of ALARA. Comparison: Head CT 01/27/2020. Findings: The paranasal sinuses and mastoid air cells are clear. The calvarium and skull base are intact. There is no mass, hematoma, midline shift, acute infarct. White matter hypodensity is nonspecific but suggestive of microvascular ischemic change. The ventricles and sulci demonstrate mild age-related involutional changes. Old left frontal lobe infarct again noted. Old left cerebellar infarcts. Impression: No acute intracranial abnormality. Atrophy and microvascular ischemic changes. ACT 112: Negative or not required by law. Electronically signed by: Bobby Romano M.D. 10/01/2023 7:37 PM Abdomen/Pelvis CT 10/01/23 19:52 Exam(s): CT ABDOMEN + PELVIS Without Contrast EXAM: CT Abdomen and Pelvis Without Intravenous Contrast CLINICAL HISTORY: Reason for exam: sepsis, fall, elev LFTs. TECHNIQUE: Axial computed tomography images of the abdomen and pelvis without intravenous contrast. CTDI is 25.08 mGy and DLP is 1298.94 mGy-cm. Automated exposure control was utilized for the study. A dose lowering technique was utilized adhering to the principles of ALARA. COMPARISON: No relevant prior studies available. FINDINGS: Lung bases: Unremarkable. No mass. No consolidation. Mediastinum: Small hiatal hernia. ABDOMEN: Liver: Unremarkable. Gallbladder and bile ducts: Unremarkable. No calcified stones. No ductal dilation. Pancreas: Unremarkable. No ductal dilation. Spleen: Unremarkable. No splenomegaly. Adrenals: Unremarkable. No mass. Kidneys and ureters: Unremarkable. No obstructing stones. No hydronephrosis. Stomach and bowel: Diverticulosis, without acute diverticulitis. No small bowel obstruction. No free intraperitoneal air. PELVIS: Appendix: No findings to suggest acute appendicitis. Bladder: With Olivas catheter terminates in a decompressed urinary bladder. Reproductive: Unremarkable as visualized. ABDOMEN and PELVIS: Intraperitoneal space: Unremarkable. No free air. No significant fluid collection. Bones/joints: Degenerative changes of the spine. No acute fracture. No dislocation. Soft tissues: Unremarkable. Vasculature: Atherosclerotic changes of the aorta. No abdominal aortic aneurysm. Lymph nodes: Unremarkable. No enlarged lymph nodes. IMPRESSION: 1. Small hiatal hernia. 2. Diverticulosis, without acute diverticulitis. No small bowel obstruction. No free intraperitoneal air. Electronically signed by: Darien Jiménez MD 10/01/23 22:00 PM PG Care Time/CCT Total # of Minutes Spent Total Time Spent with Patient: Total time spent is greater than 50% in coordination of care (as documented) at patient's floor/unit and/or counseling patient: Coding Level of Care Code 61167 INT INP/OBS CARE 3/75MIN Diagnoses Supracondylar fracture of humerus S42.413A Rhabdomyolysis M62.82 UTI (urinary tract infection) N39.0 Elevated troponin R79.89 CKD (chronic kidney disease) stage 3, GFR 30-59 ml/min N18.3 HTN (hypertension) I10 History of stroke Z86.73
--- NOTE | 2023-10-01 22:01 | CT Scan Report ---
Exam(s): CT ABDOMEN + PELVIS Without Contrast EXAM: CT Abdomen and Pelvis Without Intravenous Contrast CLINICAL HISTORY: Reason for exam: sepsis, fall, elev LFTs. TECHNIQUE: Axial computed tomography images of the abdomen and pelvis without intravenous contrast. CTDI is 25.08 mGy and DLP is 1298.94 mGy-cm. Automated exposure control was utilized for the study. A dose lowering technique was utilized adhering to the principles of ALARA. COMPARISON: No relevant prior studies available. FINDINGS: Lung bases: Unremarkable. No mass. No consolidation. Mediastinum: Small hiatal hernia. ABDOMEN: Liver: Unremarkable. Gallbladder and bile ducts: Unremarkable. No calcified stones. No ductal dilation. Pancreas: Unremarkable. No ductal dilation. Spleen: Unremarkable. No splenomegaly. Adrenals: Unremarkable. No mass. Kidneys and ureters: Unremarkable. No obstructing stones. No hydronephrosis. Stomach and bowel: Diverticulosis, without acute diverticulitis. No small bowel obstruction. No free intraperitoneal air. PELVIS: Appendix: No findings to suggest acute appendicitis. Bladder: With Olivas catheter terminates in a decompressed urinary bladder. Reproductive: Unremarkable as visualized. ABDOMEN and PELVIS: Intraperitoneal space: Unremarkable. No free air. No significant fluid collection. Bones/joints: Degenerative changes of the spine. No acute fracture. No dislocation. Soft tissues: Unremarkable. Vasculature: Atherosclerotic changes of the aorta. No abdominal aortic aneurysm. Lymph nodes: Unremarkable. No enlarged lymph nodes. IMPRESSION: 1. Small hiatal hernia. 2. Diverticulosis, without acute diverticulitis. No small bowel obstruction. No free intraperitoneal air. Electronically signed by: Darien Jiménez MD 10/01/23 22:00 PM
[2023-10-01] MEDS ORDERED: ONDANSETRON INJ 2 MG/ML 2 ML VIAL IV PRN (23:30)
[2023-10-02] MEDS: LACTATED RINGER'S 1,000 ML IV SCH ×3 (00:49→10:29)
--- NOTE | 2023-10-02 02:05 | Emergency Department Note ---
Impression & Plan Sepsis, Rhabdomyolysis, Acute UTI (urinary tract infection), Closed supracondylar fracture of left elbow, Fall, Contusion of knee, right, Contusion of knee, left ED Provider Note NAME: SLAVA RIVERA AGE: 83 SEX: Female INFORMANT: Patient and family ED PROVIDER(S): Geovanni Mesa MD CHIEF COMPLAINT: Fall PLAN: Disposition: Admitted Outpatient prescription management: none Referral: None MEDICAL DECISION MAKING: Patient presented because of a fall and prolonged downtime. She was complaining of pain in the left arm. Workup was initiated. She Was tachycardic. Blood work revealed a significant leukocytosis. Her blood pressure was mildly soft as well. This was concerning for sepsis. Patient's lactate came back elevated. She was treated with sepsis fluids based upon ideal body weight. She was also given empiric cefepime and vancomycin. Olivas catheter placed. Urinalysis was grossly concerning for infection. Patient had a mild elevation of her troponin. X-ray imaging of the knees did not reveal any acute injury. She does have a supracondylar fracture on the left. I did consult with Dr. Heck of orthopedic surgery. He agreed with the posterior splint and need for surgical management however under the circumstances the patient will need to be stabilized prior to surgery. [facility] orthopedics will consult and follow along. [facility] Case was discussed and diagnostics were reviewed. She did evaluate the patient in the emergency department and admitted her for further management. Care/management discussed with: field party manager Level of care consideration(s): After review of the information above and other included data, I feel the patient requires escalation of care to admission. Triage Nursing notes: reviewed and agree them. Vital Signs: reviewed and remarkable for hypotension and tachycardia Additional History obtained from: Patient's sister. They were not able to get in touch with her and the sister entered the house and found the patient on the floor Chronic Medical/Social Conditions affecting care: Hypertension Prior/ Outside/ External records reviewed: none Differential Diagnosis: Fracture, contusion, dislocation, rhabdomyolysis, sepsis, UTI, pneumonia, metabolic, electrolyte abnormalities, cardiac sources, intracerebral event, toxicologic, neurologic, as well as other pathologies. Diagnostics, independently interpreted by me: ECG: Twelve-lead ECG was sinus tachycardia at 103 bpm. PACs. Inferior Q waves. No ST elevation. Cardiac Monitoring: Cardiac monitoring ordered by me: The patient was placed on continuous cardiac monitoring and observed. It revealed a normal sinus rhythm at 76 beats per minute without ectopy or evidence of dysrhythmia. Medical decision rules: none Imaging studies: CT imaging of the head and cervical spine negative for acute traumatic finding. X-ray imaging of bilateral knees is negative for fracture or dislocation. X-ray imaging of the left humerus and elbow reveal supracondylar fracture. Chest x-ray. Findings: A chest x-ray was performed and revealed no pneumothorax, effusion, infiltrate, pulmonary edema, free air under the diaphragm, or wide mediastinum. Impression: No acute disease. CT scan of the abdomen pelvis reveals decompressed bladder with a Olivas catheter in place. No obstruction or diverticulitis. HPI: 83 year old Female arrives for evaluation of a fall. Patient reportedly has been on the ground for about 24 hours. She notes pain in the left elbow and minimal pain in both knees. Patient feels generally weak. She did bump her head but denies any significant headache. She was too weak to get herself up. Family found her and she was brought to the emergency department for further evaluation. Patient does note some tingling in her left fingers. Pt denies LOC, headache, fevers, chills, diaphoresis, visual changes, chest pain, breathing difficulties, nausea, vomiting, abdominal pain, back pain, melena, hematochezia, urinary symptoms,lymphadenopathy, rash, or other complaints. PAST MEDICAL HISTORY: See Below, hypertension PAST SURGICAL HISTORY: See Below, SOCIAL HISTORY: See Below, lives alone HOME MEDICATIONS: See Below ALLERGIES: See Below VITALS: See Below PHYSICAL EXAMINATION: GENERAL: Awake, tired-appearing, in no distress HENT: Normocephalic, atraumatic. Oropharynx unremarkable. EYES: Normal conjunctiva. Sclera non-icteric. NECK: Inspection normal. Non-tender. Supple. No nuchal rigidity. FROM. No masses. RESPIRATORY: Clear to auscultation. No wheezes. No rales. Normal respiratory effort. CARDIAC: Tachycardic rate. Normal rhythm. No murmurs. No rubs. Extremities warm and well perfused. Pulses equal. No JVD. GI: Soft, non-distended. No tenderness to palpation. No rebound or guarding. No masses. RECTAL: Deferred. MUSCULOSKELETAL: Contusions noted anterior to both knees. There is good range of motion there without any bony tenderness or deformity. Patient has no hip tenderness bilaterally. Right upper extremity is unremarkable. Left upper extremity examination reveals swelling around the left elbow with associated tenderness and ecchymosis. Left upper extremity has some subjective tingling in the left hand but she can discern light touch and also has no motor deficits over all myotomes tested. Chest examination reveals no tenderness. The back is symmetrical on inspection without obvious abnormality. There is no CVA tenderness to palpation. No joint edema. LOWER EXTREMITIES: Calves are equal size bilaterally and non-tender. No edema. No discoloration. NEURO: Normal sensorium. No motor deficits noted. Patient has some subjective tingling in the left hand. SKIN: No rash or jaundice noted. PROCEDURES: Splinting Indication: Closed fracture Verbal consent obtained. Risks and benefits were explained with the usual customary discussion. The injured extremity was identified. The patient was prepped and measured for the placement of a long-arm posterior ortho-glass splint. Splint applied in the standard fashion over a layer of webril and secured using an elastic bandage. Set into a position of function. Normal neurovascular status after placement verified by me. The patient tolerated the procedure well. No complications. CRITICAL CARE: none OBSERVATION NOTE: none Past Med/Surg History Medical History (Updated 10/02/23 @ 02:05 by Geovanni Mesa MD) History of stroke Hypertension CKD (chronic kidney disease) stage 3, GFR 30-59 ml/min Surgical History No pertinent past surgical history Family History Denies family history of Stroke Social History Smoking Status: Never smoker Hx Alcohol Use: Yes Hx Substance Use: No Preferred Language: Ukrainian Communication Ability: Effective Travograph Operator Required: No Beliefs That Will Affect Care: None marital status: Current Living Situation: Alone Other Information That Helps Us Care for You: No Feels Safe at Home: Yes Safety Concerns: Feels Safe At This Time Assistive Devices: None Allergies Allergies Allergy/AdvReac Type Severity Reaction Status Date / Time No Known Allergies Allergy Mild 0 Verified 10/01/23 20:04 Home Meds Home Medications Medication Instructions Recorded Confirmed metoprolol succinate 25 mg 25 mg PO QAM 01/27/20 10/01/23 tablet,extended release 24 hr (Toprol XL) Andra's Leg Cramps 1 dose PO DIRECTED 10/01/23 10/01/23 Total Beets 1 tab PO DAILY 10/01/23 10/01/23 amlodipine 10 mg tablet 10 mg PO DAILY 10/01/23 10/01/23 ibuprofen 200 mg tablet 400 mg PO Q6H PRN PAIN/FEVER 10/01/23 10/01/23 turmeric 400 mg capsule 400 mg PO DAILY 10/01/23 10/01/23 Previous Rx's Medication Instructions Recorded atorvastatin 40 mg tablet 40 mg PO QAM 30 days #30 tabs 01/28/20 clopidogrel 75 mg tablet 75 mg PO QAM 30 days #30 tabs 01/28/20 Results & Data (ED) Vital Signs Vital Signs - 24 hr 10/01/23 18:32 10/01/23 20:16 10/01/23 20:30 Temperature 36.8 C Temperature Source Temporal Artery Scan Pulse Rate 130 H Pulse Rate [Apical] 81 Respiratory Rate 20 18 Respiratory Effort / Characteristics Non-Labored Spontaneous Non-Labored Spontaneous Respiratory Depth Normal Normal Respiratory Pattern Regular Blood Pressure 150/109 H Blood Pressure [Right Arm] 133/78 Blood Pressure Mean 122 Blood Pressure Mean [Right Arm] 96 Blood Pressure Position Sitting Pulse Oximetry 97 96 96 Oxygen Delivery Method Room Air Room Air Room Air Sepsis Recent Fever Within 48 Hours No Sepsis New/Unexplained Change in Mental Status No Sepsis Action Taken by Nursing No Action Required Laboratory Data 10/01/23 19:06 10/01/23 19:06 Lab Results 10/01/23 10/01/23 10/01/23 Range/Units 19:06 20:26 21:19 WBC 28.26 H (4.8-10.8) K/ul RBC 4.73 (4.20-5.40) M/uL Hgb 14.1 (12.0-16.0) g/dl Hct 42.8 (37.0-47.0) % MCV 90.5 (80.0-100.0) fL MCH 29.8 (25.0-34.0) pg MCHC 32.9 (32.0-36.0) g/dL RDW Std Deviation 44.8 (36.4-46.3) fL RDW Coeff of Cj 13.5 (11.5-14.5) % Plt Count 283 (130-400) K/uL MPV 11.4 (9.4-12.4) fL Immature Gran % (Auto) 0.9 % Neut % (Auto) 88.5 % Lymph % (Auto) 4.5 % [place] % (Auto) 5.9 % Eos % (Auto) 0.0 % Baso % (Auto) 0.2 % Neut # (Auto) 25.00 H (1.40-6.50) K/uL Lymph # (Auto) 1.27 (1.20-3.40) K/uL [place] # (Auto) 1.67 H (0.11-0.59) K/uL Eos # (Auto) 0.00 (0.00-0.50) K/uL Baso # (Auto) 0.07 (0.00-0.20) K/uL Immature Gran # (Auto) 0.25 H (0.01-0.20) K/uL PT 10.5 (9.0-12.0) Seconds INR 1.0 (0.9-1.1) Sodium 138 (136-145) mmol/L Potassium 4.1 (3.5-5.1) mmol/L Chloride 104 (98-107) mmol/L Carbon Dioxide 23 (21-32) mmol/L Anion Gap 11 (3-11) BUN 35 H (6-23) mg/dl Creatinine 1.40 H (0.6-1.2) mg/dl Est Cr Clr Drug Dosing Not Reportable Est GFR ( Amer) 39.9 ml/min Est GFR (Non-Af Amer) 34.4 ml/min BUN/Creatinine Ratio 25.0 H (10-20) Glucose 123 H (70-99(Fasting)) mg/dl Lactate 2.2 H* 2.3 H* (0.4-2.0) mmol/L Calcium 9.4 (8.6-10.3) mg/dl Magnesium 2.2 (1.7-2.4) mg/dl Total Bilirubin 1.8 H (0.2-1.0) mg/dl AST 58 H (13-39) U/L ALT 24 (7-52) U/L Alkaline Phosphatase 84 (34-104) U/L Total Creatine Kinase 1129 H (26-192) U/L Troponin I High Sens 58.8 H* 57.0 H* (0-14) pg/ml Total Protein 6.8 (6.0-8.3) gm/dl Albumin 4.2 (3.4-5.0) gm/dl Globulin 2.6 (2.5-4.0) gm/dl Albumin/Globulin Ratio 1.6 (0.9-2) TSH 1.405 (0.300-4.500) uIu/ml Urine Color [place] Urine Appearance Turbid A (Clear) Urine pH 5.5 (4.5-7.5) Ur Specific [place] 1.030 (1.000-1.030) Urine Protein 2+ H (Negative) Urine Glucose (UA) Negative (Negative) Urine Ketones 1+ H (Negative) Urine Blood Trace H (Negative) Urine Nitrite Positive A (Negative) Urine Bilirubin 2+ H (Negative) Urine Urobilinogen Negative (Negative) Ur Leukocyte Esterase Trace H (Negative) Urine WBC (Auto) >30 H (0-5) /hpf Urine RBC (Auto) 0-4 (0-4) /hpf U Hyaline Cast (Auto) >30 H (0-5) /lpf U Epithel Cells (Auto) >30 H (0-5) /lpf Urine Bacteria (Auto) 3+ H (Negative) Granular Casts 1-5 H (0) /lpf Urine Yeast Not Reportable Administered Medications Lactated Ringer's (Lr) 1,000 mls @ 200 mls/hr IV .Q5H [facility] Stop: 10/02/23 14:29 Last Admin: 10/02/23 00:49 Dose: 200 mls/hr Documented By: CAITIE Discontinued Medications Sodium Chloride (Nss) 500 mls @ 999 mls/hr IV .Q31M FABIEN Stop: 10/01/23 19:15 Last Infusion: 10/01/23 19:54 Dose: Infused Documented By: Admin: 10/01/23 19:22 Dose: 999 mls/hr Documented By: ESTHELA Sodium Chloride (Nss) 1,000 mls @ 999 mls/hr IV .Q1H1M ONE Stop: 10/01/23 20:25 Last Infusion: 10/01/23 21:52 Dose: Infused Documented By: Admin: 10/01/23 20:31 Dose: 999 mls/hr Documented By: AN Cefepime HCl (Maxipime) 2,000 mg in 20 mls @ 5 mls/min IV NOW STA; Protocol Stop: 10/01/23 19:28 Last Admin: 10/01/23 20:31 Dose: 5 mls/min Documented By: AN Vancomycin HCl 1,750 mg/ (Sodium Chloride) 535 mls @ 200 mls/hr IV NOW ONE Stop: 10/01/23 23:25 Last Infusion: 10/02/23 00:51 Dose: Infused Documented By: Admin: 10/01/23 21:46 Dose: 200 mls/hr Documented By: AN Sodium Chloride (Nss) 500 mls @ 999 mls/hr IV .Q31M ONE Stop: 10/01/23 21:16 Last Infusion: 10/01/23 22:21 Dose: Infused Documented By: Admin: 10/01/23 21:47 Dose: 999 mls/hr Documented By: AN Imaging Data Radiologist's Impression: Cervical Spine CT 10/01/23 18:[address] DOSE: 1205.68 mGy.cm HISTORY: Neck pain. fall TECHNIQUE: Multiaxial CT images of the cervical spine were performed and reformatted in the sagittal and coronal plane without the use of contrast. A dose lowering technique was utilized adhering to the principles of ALARA. COMPARISON: CTA neck 01/27/2020.. FINDINGS: No fractures. No subluxation. Prevertebral soft tissues and the C1-C2 interval are intact. No pneumothorax. Large predominant left-sided multinodular thyroid goiter again noted. This is similar to the prior study. Moderate to severe disc space narrowing at C5-C7. Moderate facet degenerative changes throughout the cervical spine. IMPRESSION: 1. No fractures within the cervical spine. 2. Multinodular thyroid goiter again noted. ACT 112: Negative or not required by law. Electronically signed by: Bobby Romano M.D. 10/01/2023 7:42 PM Chest X-Ray 10/01/23 18:34 XR chest 1V portable HISTORY: weakness, fall COMPARISON: Chest 06/06/2019. FINDINGS: No pneumothorax. No pleural fusions. The heart remains mildly enlarged. Mild diffuse interstitial thickening which is likely chronic. No new focal lung consolidations to suggest a pneumonia. No evidence for pulmonary edema. Degenerative changes again noted within the shoulders. There are calcifications within the aortic knob. No acute fractures identified. IMPRESSION: No significant change compared to the prior study. No acute process. ACT 112: Negative or not required by law. Electronically signed by: Bobby Romano M.D. 10/01/2023 7:56 PM Elbow X-Ray 10/01/23 18:34 XR humerus LT 2V, XR elbow LT min 3V routine CLINICAL HISTORY: Left elbow and arm pain, swelling, bruising, fall yesterday COMPARISON STUDY: None. FINDINGS: There is a slightly comminuted and displaced supracondylar fracture within the distal left humerus. No dislocation at the elbow joint. There is a left elbow effusion and soft tissue swelling. The fracture demonstrates up to 1.4 cm of medial displacement. No acute fracture or dislocation within the proximal left humerus. Degenerative changes noted at the left shoulder. IMPRESSION: Slightly comminuted and displaced supracondylar fracture within the distal left humerus. ACT 112: Negative or not required by law. Electronically signed by: Bobby Romano M.D. 10/01/2023 8:02 PM Humerus X-Ray 10/01/23 18:34 XR humerus LT 2V, XR elbow LT min 3V routine CLINICAL HISTORY: Left elbow and arm pain, swelling, bruising, fall yesterday COMPARISON STUDY: None. FINDINGS: There is a slightly comminuted and displaced supracondylar fracture within the distal left humerus. No dislocation at the elbow joint. There is a left elbow effusion and soft tissue swelling. The fracture demonstrates up to 1.4 cm of medial displacement. No acute fracture or dislocation within the proximal left humerus. Degenerative changes noted at the left shoulder. IMPRESSION: Slightly comminuted and displaced supracondylar fracture within the distal left humerus. ACT 112: Negative or not required by law. Electronically signed by: Bobby Romano M.D. 10/01/2023 8:02 PM Knee X-Ray 10/01/23 18:34 XR knee LT 3V, XR knee RT 3V CLINICAL HISTORY: Bilateral knee pain. Fall. COMPARISON STUDY: None. FINDINGS: The bones are osteopenic. Mild vascular calcifications are noted. No acute fracture or dislocation within the right or left knee. No significant soft tissue swelling. No significant knee effusions. IMPRESSION: No fractures within the right or left knee. ACT 112: Negative or not required by law. Electronically signed by: Bobby Romano M.D. 10/01/2023 8:05 PM Knee X-Ray 10/01/23 18:34 XR knee LT 3V, XR knee RT 3V CLINICAL HISTORY: Bilateral knee pain. Fall. COMPARISON STUDY: None. FINDINGS: The bones are osteopenic. Mild vascular calcifications are noted. No acute fracture or dislocation within the right or left knee. No significant soft tissue swelling. No significant knee effusions. IMPRESSION: No fractures within the right or left knee. ACT 112: Negative or not required by law. Electronically signed by: Bobby Romano M.D. 10/01/2023 8:[address] 10/01/23 18:[address] DOSE: HISTORY: fall TECHNIQUE: Multiaxial CT images of the head were performed without the use of intravenous contrast. Automated exposure control was utilized for this study. A dose lowering technique was utilized adhering to the principles of ALARA. Comparison: Head CT 01/27/2020. Findings: The paranasal sinuses and mastoid air cells are clear. The calvarium and skull base are intact. There is no mass, hematoma, midline shift, acute infarct. White matter hypodensity is nonspecific but suggestive of microvascular ischemic change. The ventricles and sulci demonstrate mild age-related involutional changes. Old left frontal lobe infarct again noted. Old left cerebellar infarcts. Impression: No acute intracranial abnormality. Atrophy and microvascular ischemic changes. ACT 112: Negative or not required by law. Electronically signed by: Bobby Romano M.D. 10/01/2023 7:37 PM Abdomen/Pelvis CT 10/01/23 19:52 Exam(s): CT ABDOMEN + PELVIS Without Contrast EXAM: CT Abdomen and Pelvis Without Intravenous Contrast CLINICAL HISTORY: Reason for exam: sepsis, fall, elev LFTs. TECHNIQUE: Axial computed tomography images of the abdomen and pelvis without intravenous contrast. CTDI is 25.08 mGy and DLP is 1298.94 mGy-cm. Automated exposure control was utilized for the study. A dose lowering technique was utilized adhering to the principles of ALARA. COMPARISON: No relevant prior studies available. FINDINGS: Lung bases: Unremarkable. No mass. No consolidation. Mediastinum: Small hiatal hernia. ABDOMEN: Liver: Unremarkable. Gallbladder and bile ducts: Unremarkable. No calcified stones. No ductal dilation. Pancreas: Unremarkable. No ductal dilation. Spleen: Unremarkable. No splenomegaly. Adrenals: Unremarkable. No mass. Kidneys and ureters: Unremarkable. No obstructing stones. No hydronephrosis. Stomach and bowel: Diverticulosis, without acute diverticulitis. No small bowel obstruction. No free intraperitoneal air. PELVIS: Appendix: No findings to suggest acute appendicitis. Bladder: With Olivas catheter terminates in a decompressed urinary bladder. Reproductive: Unremarkable as visualized. ABDOMEN and PELVIS: Intraperitoneal space: Unremarkable. No free air. No significant fluid collection. Bones/joints: Degenerative changes of the spine. No acute fracture. No dislocation. Soft tissues: Unremarkable. Vasculature: Atherosclerotic changes of the aorta. No abdominal aortic aneurysm. Lymph nodes: Unremarkable. No enlarged lymph nodes. IMPRESSION: 1. Small hiatal hernia. 2. Diverticulosis, without acute diverticulitis. No small bowel obstruction. No free intraperitoneal air. Electronically signed by: Darien Jiménez MD 10/01/23 22:00 PM Discharge Plan Visit Data Chief Complaint: Fall Stated Complaint: FALL, LEG/LT ARM/KNEE BRUISING, DIZZY ED Provider: Geovanni Mesa Discharge Problem: Sepsis, Rhabdomyolysis, Acute UTI (urinary tract infection), Closed supracondylar fracture of left elbow, Fall, Contusion of knee, right, Contusion of knee, left Discharge Instructions Interventions: ED Discharge Assessment Last Done: 10/01/23 23:31
--- NOTE | 2023-10-02 07:14 | Communication Note ---
Date of Service: October 02, 2023 83-year-old female with h/o HTN, CKD and prior CVAs who suffered a mechanical fall after tripping over a bucket while filling her pellet stove, sustaining a left supracondylar fracture of the humerus. patient currently undergoing echocardiogram in the emergency department. Patient has been admitted by the hospitalist service and we have been asked to see her. X-rays reviewed by Dr. Heck And myself. Currently the patient is comfortable. The left upper extremity has a posterior splint applied with sling. She has motor function of all her fingers but states that she has decreased sensation over all fingers. Cap refill is less than 2 seconds. We will discuss fracture repair with Drs. Guillen/Cristel. Pt currently waiting for a bed. Full consult to follow.
[2023-10-02] MEDS: cefTRIAXone SODIUM 2,000 MG in DEXTROSE 5 % MINI-B 50 ML IV SCH (07:18)
[2023-10-02 07:58] LABS: Hematocrit (blood only) 34.3 % (37.0-47.0); Hemoglobin 11.3 g/dl (12.0-16.0); Mean Corpuscular Hemoglobin 30.1 pg (25.0-34.0); Mean Corpuscular Hgb Conc 32.9 g/dL (32.0-36.0); Mean Corpuscular Volume 91.2 fL (80.0-100.0); Mean Platelet Volume 11.3 fL (9.4-12.4); Platelet Count 200 K/uL (130-400); RDW Coefficient of Variation 13.8 % (11.5-14.5); RDW Standard Deviation 46.2 fL (36.4-46.3); Red Blood Count 3.76 M/uL (4.20-5.40); White Blood Count 14.61 K/ul (4.8-10.8)
[2023-10-02 08:26] LABS: BUN Creatinine Ratio 23.9 (10-20); Bilirubin Direct 0.2 mg/dl (0-0.2); Bilirubin,Total 1.3 mg/dl (0.2-1.0); Calcium 8.2 mg/dl (8.6-10.3); Creatinine Clr Calc Pharmacy 34.9 ml/min; Est GFR (African American) 42.1 ml/min; Est GFR (Non-African American) 36.3 ml/min; Potassium 3.7 mmol/L (3.5-5.1); Total Protein 4.9 gm/dl (6.0-8.3)
[2023-10-02] MEDS: METOPROLOL SUCC 25MG EXT REL TAB PO SCH (08:42)
[2023-10-02] MEDS: amLODIPine BESYLATE 5 MG TAB PO SCH (08:42)
[2023-10-02] MEDS: CLOPIDOGREL BISULFATE 75 MG TAB PO SCH (08:42)
[2023-10-02] MEDS ORDERED: VANCOMYCIN HCL 750 MG in SODIUM CHLORIDE 0.9% 250 ML IV SCH (09:00)
--- NOTE | 2023-10-02 09:29 | Hospitalist Progress Note ---
Date of Service October 02, 2023 Assessment & Plan (1) Supracondylar fracture of humerus: Plan: 83yo female with ground level fall and prolonged down time of 15+ hours presenting with left supracondylar humerus fracture and mild rhabdomyolysis. Splint has been placed. Pain is well controlled. Patient NV intact. -Admit to medical with telemetry -Pain control with Tylenol PRN -Orthopedic Surgery consultation appreciated - CT of elbow was ordered by Dr. Fam. Potentially may need surgery. -AM CBC -PT/OT evaluation appreciated. Patient currently lives alone and is independent. Son and sister live nearby. (2) Rhabdomyolysis: Plan: Atraumatic rhabdomyolysis with CK of 1129. Patient with blood on UA, absence of RBCs. Renal function is at baseline. Odell catheter is in place and she has been administered 2L of NSS. - overnight treated with aggressive IVF - LR at 200mL/hr x 3 liters - CK has decreased to 600, will decrease fluid rate to 100 - atorvastatin has been held - ordered AM BMP CK (3) UTI (urinary tract infection): Plan: UA suggestive of infection. Significant leukocytosis with WBC=28.26 improved to 14 K overnight mostly dilutional drop. Patient with incontinence, laid in waste for some time which is likely cause of patient's infection. She is afebrile, HD stable and non-toxic in appearance. Patient has been given Cefepime and Vancomycin in the ER. -Follow urine culture, blood cultures -Continue antibiotics - Ceftriaxone 2gm IV daily. stop vancomycin -currently has odell, should be discontinued postop (or earlier if nonoperative) -Tylenol as needed for pain or fever -AM CBC (4) Elevated troponin: Plan: Patient denies chest pain. Troponin 58.8 --> 57. EKG with ST, PACs present, no acute ischemic changes. -Telemetry monitoring -Check 2D echo - EF 60-65% no rwma's normal valves normal volume status -minimal troponin elevation not consistent with ACS, mild cardiac strain due to conditions above setting of CKD-3 or could also be muscular in origin given high CK -no contraindications to proceeding with orthopedic surgery if necessary (5) CKD (chronic kidney disease) stage 3, GFR 30-59 ml/min: Plan: BUN and Cr near baseline -Monitor renal function -Avoid nephrotoxic agents -Renal dosing where needed -BMP today stable creatinine 1.34 (6) HTN (hypertension): Plan: Chronic. Stable -Continue Amlodipine 10mg po daily -Continue Metoprolol 25mg po daily -Monitor BP - normotensive 10/02 (7) History of stroke: Plan: Chronic. Patient has Plavix listed on her home medication list but is uncertain if she has been taking it -Continue Plavix 75mg po qAM -Continue Atorvastatin 40mg po qAM Plan history of goiter, seen on CT, unchanged. TSH 1.4 Odell was placed in ED, discontinue soon PT/OT pending, like she lives independently and alone at baseline, high probability of requiring rehab placement Admission and Anticipated Discharge Date Admission Date: October 01, 2023 Subjective Seen this afternoon in ED, doing well, no pain from L elbow if she stays still, no chest or abdominal pain. No dyspnea. Some bladder pain from odell, but denied dysuria prior to admission. Tips of fingers on BOTH hands tingling following her fall, no neck or back pain, feels R hand/arm strength normal, no foot tingling or numbness Physical Exam 2 Physical Exam: PHYSICAL EXAMINATION Last 24h vital signs reviewed, see documentation in flowsheet General: comfortable appearing, no distress HEENT: Normocephalic, atraumatic, pupils round and equal, sclerae anicteric, no conjunctival injection, moist mucus membranes Lungs: Normal respiratory effort. Clear to auscultation bilaterally. No RRW Heart: Regular rate and rhythm, no murmurs. No JVD Abdomen: Soft, nontender, nondistended. Bowel sounds present. Extremities: Warm, dry, well-perfused. No extremity edema. LUE in ani wrap splint and sling. L hand warm/well perfused Neuro: Alert and oriented x 4, face symmetric, moves 4 extremities well Psych: Normal affect and behavior Results & Data Results & Data Vital Signs (Past 12 Hours) Vital Signs Pulse Pulse Resp BP BP Pulse Ox O2 Del Method 10/02/23 07:35 80 10/02/23 07:21 80 18 125/71 96 Room Air 10/02/23 06:00 109/55 L 10/02/23 06:00 78 21 95 10/02/23 05:50 77 20 97 10/02/23 05:40 88 25 H 91 10/02/23 05:30 84 20 10/02/23 05:30 113/64 10/02/23 05:20 82 21 10/02/23 05:10 85 20 10/02/23 05:00 108/67 10/02/23 05:00 75 21 10/02/23 04:50 92 H 21 10/02/23 04:40 70 22 10/02/23 04:30 111/65 10/02/23 04:30 77 21 10/02/23 04:20 82 21 10/02/23 04:18 Room Air 10/02/23 04:10 75 13 96 10/02/23 04:00 70 20 10/02/23 04:00 114/56 L 10/02/23 03:50 71 22 10/02/23 03:40 69 16 10/02/23 03:30 107/64 10/02/23 03:30 76 17 10/02/23 03:20 71 16 10/02/23 03:10 75 17 10/02/23 03:00 123/60 10/02/23 03:00 76 19 10/02/23 02:50 79 10/02/23 02:40 81 17 10/02/23 02:30 108/58 L 10/02/23 02:30 77 18 10/02/23 02:20 79 18 95 10/02/23 02:11 109/57 L 10/02/23 02:11 78 95 10/02/23 02:10 68 16 95 10/02/23 02:00 90/55 L 10/02/23 02:00 73 17 95 10/02/23 01:50 73 15 95 10/02/23 01:40 76 15 95 10/02/23 01:30 76 17 94 10/02/23 01:30 115/49 L 10/02/23 01:20 77 16 95 10/02/23 01:10 77 18 95 10/02/23 01:00 115/59 L 10/02/23 01:00 72 23 96 10/02/23 00:50 74 21 97 10/02/23 00:40 80 25 H 10/02/23 00:30 100/50 L 10/02/23 00:30 78 21 10/02/23 00:20 79 22 10/02/23 00:15 76 16 111/85 96 Room Air 10/02/23 00:10 77 21 10/02/23 00:00 111/65 10/02/23 00:00 81 24 10/01/23 23:50 83 17 10/01/23 23:40 81 21 10/01/23 23:30 98 H 10/01/23 23:30 81 10/01/23 23:20 83 29 H 10/01/23 23:10 86 33 H 10/01/23 23:00 120/70 10/01/23 23:00 85 27 H 10/01/23 22:50 87 18 10/01/23 22:40 86 23 10/01/23 22:30 120/75 10/01/23 22:30 94 H 24 10/01/23 22:20 96 H 23 10/01/23 22:14 133/67 10/01/23 22:14 80 22 133/67 96 Room Air Laboratory Results 10/02/23 07:30 10/02/23 07:27 PG Care Time/CCT Total # of Minutes Spent Total Time Spent with Patient: Total time spent is greater than 50% in coordination of care (as documented) at patient's floor/unit and/or counseling patient: Coding Level of Care Code 22056 SUB INP/OBS CARE 3/50MIN Diagnoses Supracondylar fracture of humerus S42.413A Rhabdomyolysis M62.82 UTI (urinary tract infection) N39.0 Elevated troponin R79.89 CKD (chronic kidney disease) stage 3, GFR 30-59 ml/min N18.3 HTN (hypertension) I10 History of stroke Z86.73
--- NOTE | 2023-10-02 10:29 | CT Scan Report ---
CT elbow LT wo con CLINICAL HISTORY: Left elbow supracondylar fracture TECHNIQUE: Multidetector row helical CT of the left elbow was performed without intravenous contrast. Coronal and sagittal reformations were obtained. Automated dose lowering techniques and/or adjustmen t according to patient size were utilized for this examination. CT DOSE: 480.53 mGy.cm Comparison: Comparison is made to left elbow radiograph 10/01/2023 FINDINGS: Comminuted supracondylar fracture is seen with mild anterolateral displacement. The joint spaces are maintained. Soft tissue swelling is seen. IMPRESSION: Comminuted supracondylar fracture as above. ACT 112: Negative or not required by law. Electronically signed by: Law Reyez M.D. 10/02/2023 10:28 AM
--- NOTE | 2023-10-02 12:39 | Electrocardiogram Report ---
Test Reason : Blood Pressure : / mmHG Vent. Rate : 103 BPM Atrial Rate : 103 BPM P-R Int : 154 ms QRS Dur : 082 ms QT Int : 346 ms P-R-T Axes : 042 -44 012 degrees QTc Int : 453 ms Poor data quality, interpretation may be adversely affected Sinus tachycardia with Premature atrial complexes Left axis deviation Inferior infarct , age undetermined Abnormal ECG When compared with ECG of 27-JAN-2020 14:04, Vent. rate has increased BY 40 BPM Inferior infarct is now Present Confirmed by Caden Juarez ([id number]) on 10/02/2023 12:38:59 PM Referred By: REFERRED SELF Confirmed By:Caden Juarez
--- NOTE | 2023-10-02 13:33 | XCELERA ---
[id number] \\[email or web address]_[email or web address]\[id number]___[id number]
--- NOTE | 2023-10-03 00:43 | Communication Note ---
Date of Service: October 03, 2023 Notified by RN of telemetry report showing atrial fibrillation, rates 60s-70s. EKG performed which demonstrated atrial fibrillation with ventricular rate 65. Pt currently remains rate-controlled. Although her CHADSVASC score is 6+, will defer on anticoagulation with heparin at this time given pt's recent fall resulting in humeral fracture, potential operative repair during this hospitalization, and pending goals of care/risk-benefit discussion of initiating anticoagulation. Electrolytes reviewed, currently acceptable.
[2023-10-03] MEDS: cefTRIAXone SODIUM 2,000 MG in DEXTROSE 5 % MINI-B 50 ML IV SCH (05:21)
[2023-10-03 06:49] LABS: Hematocrit (blood only) 32.3 % (37.0-47.0); Hemoglobin 10.6 g/dl (12.0-16.0); Mean Corpuscular Hemoglobin 29.9 pg (25.0-34.0); Mean Corpuscular Hgb Conc 32.8 g/dL (32.0-36.0); Mean Corpuscular Volume 91.2 fL (80.0-100.0); Mean Platelet Volume 11.2 fL (9.4-12.4); Platelet Count 207 K/uL (130-400); RDW Standard Deviation 46.7 fL (36.4-46.3); Red Blood Count 3.54 M/uL (4.20-5.40); White Blood Count 9.63 K/ul (4.8-10.8)
[2023-10-03 07:19] LABS: BUN Creatinine Ratio 20.8 (10-20); Calcium 8.2 mg/dl (8.6-10.3); Creatinine Clr Calc Pharmacy 30.6 ml/min; Est GFR (African American) 35.5 ml/min; Est GFR (Non-African American) 30.7 ml/min; Potassium 3.5 mmol/L (3.5-5.1)
[2023-10-03] MEDS: METOPROLOL SUCC 25MG EXT REL TAB PO SCH (08:42)
[2023-10-03] MEDS: CLOPIDOGREL BISULFATE 75 MG TAB PO SCH (08:43)
[2023-10-03] MEDS: amLODIPine BESYLATE 5 MG TAB PO SCH (08:43)
--- NOTE | 2023-10-03 12:02 | Orthopedic Consultation ---
Date of Consultation October 03, 2023 Assessment & Plan (1) Closed supracondylar fracture of left elbow: Displaced left supracondylar humerus fracture. Posterior splint has been applied. A sling has also been applied and is currently in good position. Easy wrap ice pack to the left elbow as needed. Pain control as needed although patient currently is very comfortable. Dr. Fam has reviewed the films. He is planning on seeing the patient later this afternoon to decide final treatment plans of the left supracondylar fracture. Supervising Physician Co-Signing Physician Notes Attempted to examine patient this evening, but nursing reports she is off the floor for MRI. Patient discussed with YANNI Magallanes, who examined her earlier today. Left elbow X-rays and CT scan reviewed. They show a supracondylar distal humerus fracture without intraarticular extension. 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 She reportedly has bruising along her left arm and denies previous injury to that left elbow, arguing for an acute fracture. I will go ahead and post her for ORIF of this fracture on 10/05, but will examine patient myself and discuss with patient prior to surgery. History of Present Illness Reason for Consultation: Left supracondylar humerus fracture Attending Physician: Elgin Garay MD History of Present Illness Patient is a 83yo female with history of HTN, CKD and prior CVAs who came to the hospital on Monday evening 10/01/2023 after sustaining a mechanical fall. The patient states that she was in the process of putting pellets in her wood pellet heating stove. She states that she got tripped up with one of the buckets that holds the pellets that was on the floor and she ended up falling. She apparently had fallen predominantly on her right side and she does not remember if she reached out with her left arm during the fall or not. She denies losing consciousness. She denies injuring the left arm any time in the past that she remembers. The patient lives alone and per the current records, the patient apparently laid on the floor for approximately 15 hours until she was found by family. She was then brought to the emergency room. She was seen by the staff. X-rays were taken. It was found that she did have a displaced supracondylar left humerus fracture. Patient was also noted to have rhabdomyolysis along with a UTI and elevated troponins. She was admitted by the hospitalist service for further care and we have been asked to see her for her supracondylar humerus fracture. Allergies Allergy/AdvReac Type Severity Reaction Status Date / Time No Known Allergies Allergy Mild 0 Verified 10/01/23 20:04 Home Medications Medication Instructions Recorded Confirmed Type metoprolol succinate 25 mg 25 mg PO QAM 01/27/20 10/01/23 History tablet,extended release 24 hr (Toprol XL) atorvastatin 40 mg tablet 40 mg PO QAM 30 days #30 tabs 01/28/20 10/01/23 Rx clopidogrel 75 mg tablet 75 mg PO QAM 30 days #30 tabs 01/28/20 10/01/23 Rx Andra's Leg Cramps 1 dose PO DIRECTED 10/01/23 10/01/23 History Total Beets 1 tab PO DAILY 10/01/23 10/01/23 History amlodipine 10 mg tablet 10 mg PO DAILY 10/01/23 10/01/23 History ibuprofen 200 mg tablet 400 mg PO Q6H PRN PAIN/FEVER 10/01/23 10/01/23 History turmeric 400 mg capsule 400 mg PO DAILY 10/01/23 10/01/23 History Patient History Medical History History of stroke Hypertension CKD (chronic kidney disease) stage 3, GFR 30-59 ml/min Surgical History No pertinent past surgical history Family History Denies family history of Stroke Social History Smoking Status: Never smoker Hx Alcohol Use: Yes Hx Substance Use: No Preferred Language: Macedonian Communication Ability: Effective [employer] Targeting Technician Required: No Beliefs That Will Affect Care: None marital status: Current Living Situation: Alone Feels Safe at Home: Yes Assistive Devices: Cane Physical Exam Physical Exam: Patient is an 83-year-old white female who appears her stated age. She is currently sitting up in her chair at the bedside. She is in no acute distress, pleasant and cooperative, alert and oriented to person and place. On examination of the left upper extremity, she has a posterior splint applied with the elbow flexed at 90 degrees. Left shoulder does not appear to be overtly swollen and is not tender on palpation. When I initially saw her yesterday morning briefly, she was complaining of decreased sensation in the fingers of her left hand. She states that that is better today and she is having less numbness. She has good motor function of her fingers at this time. Again she does state she has some residual decreased sensation but is getting better as time progresses. Capillary refill is less than 2 seconds. Patient also complains of decreased sensation of her right fingers. Motor function is intact. She has no overt bruising on the right upper extremity at this time. She is nontender at the shoulder, elbow, and wrist. She denies any cervical, thoracic, lumbar pain at this time. She states she does have some soreness of her left lower extremity at the calf. There is no overt swelling or bruising noted. She is able to take the ankle and knee through active range of motion without difficulty or pain. Homans exam is negative. She states that she has some mild pain in the left ankle with weightbearing although not demonstrated at this time. Axial loading of the ankle and knee do not cause increased pain. Results & Data Vital Signs (Past 12 Hours) Vital Signs Temp Pulse Resp BP Pulse Ox O2 Del Method 10/03/23 11:19 36.9 C 83 20 112/63 94 Room Air 10/03/23 08:02 36.7 C 73 20 112/74 93 Room Air 10/03/23 07:38 Room Air 10/03/23 03:05 36.4 C L 72 18 123/72 94 Room Air Laboratory Results Laboratory Results WBC 9.63 K/ul (4.8-10.8) 10/03/23 06:13 RBC 3.54 M/uL (4.20-5.40) L 10/03/23 06:13 Hgb 10.6 g/dl (12.0-16.0) L 10/03/23 06:13 Hct 32.3 % (37.0-47.0) L 10/03/23 06:13 MCV 91.2 fL (80.0-100.0) 10/03/23 06:13 MCH 29.9 pg (25.0-34.0) 10/03/23 06:13 MCHC 32.8 g/dL (32.0-36.0) 10/03/23 06:13 RDW Std Deviation 46.7 fL (36.4-46.3) H 10/03/23 06:13 RDW Coeff of Cj 14.0 % (11.5-14.5) 10/03/23 06:13 Plt Count 207 K/uL (130-400) 10/03/23 06:13 MPV 11.2 fL (9.4-12.4) 10/03/23 06:13 Immature Gran % (Auto) 0.9 % 10/01/23 19:06 Neut % (Auto) 88.5 % 10/01/23 19:06 Lymph % (Auto) 4.5 % 10/01/23 19:06 Cochran % (Auto) 5.9 % 10/01/23 19:06 Eos % (Auto) 0.0 % 10/01/23 19:06 Baso % (Auto) 0.2 % 10/01/23 19:06 Neut # (Auto) 25.00 K/uL (1.40-6.50) H 10/01/23 19:06 Lymph # (Auto) 1.27 K/uL (1.20-3.40) 10/01/23 19:06 Cochran # (Auto) 1.67 K/uL (0.11-0.59) H 10/01/23 19:06 Eos # (Auto) 0.00 K/uL (0.00-0.50) 10/01/23 19:06 Baso # (Auto) 0.07 K/uL (0.00-0.20) 10/01/23 19:06 Immature Gran # (Auto) 0.25 K/uL (0.01-0.20) H 10/01/23 19:06 PT 10.5 Seconds (9.0-12.0) 10/01/23 19:06 INR 1.0 (0.9-1.1) 10/01/23 19:06 Sodium 143 mmol/L (136-145) 10/03/23 06:13 Potassium 3.5 mmol/L (3.5-5.1) 10/03/23 06:13 Chloride 114 mmol/L (98-107) H 10/03/23 06:13 Carbon Dioxide 25 mmol/L (21-32) 10/03/23 06:13 Anion Gap 4 (3-11) 10/03/23 06:13 BUN 32 mg/dl (6-23) H 10/03/23 06:13 Creatinine 1.54 mg/dl (0.6-1.2) H 10/03/23 06:13 Est Cr Clr Drug Dosing 30.6 ml/min 10/03/23 06:13 Est GFR ( Amer) 35.5 ml/min 10/03/23 06:13 Est GFR (Non-Af Amer) 30.7 ml/min 10/03/23 06:13 BUN/Creatinine Ratio 20.8 (10-20) H 10/03/23 06:13 Glucose 97 mg/dl (70-99(Fasting)) 10/03/23 06:13 Lactate 0.9 mmol/L (0.4-2.0) 10/02/23 07:27 Calcium 8.2 mg/dl (8.6-10.3) L 10/03/23 06:13 Magnesium 2.2 mg/dl (1.7-2.4) 10/01/23 19:06 Total Bilirubin 1.3 mg/dl (0.2-1.0) H 10/02/23 07:27 Direct Bilirubin 0.2 mg/dl (0-0.2) 10/02/23 07:27 AST 43 U/L (13-39) H 10/02/23 07:27 ALT 18 U/L (7-52) 10/02/23 07:27 Alkaline Phosphatase 57 U/L (34-104) 10/02/23 07:27 Total Creatine Kinase 228 U/L (26-192) H 10/03/23 06:13 Troponin I High Sens 57.0 pg/ml (0-14) H* 10/01/23 21:19 Total Protein 4.9 gm/dl (6.0-8.3) L D 10/02/23 07:27 Albumin 3.0 gm/dl (3.4-5.0) L 10/02/23 07:27 Globulin 2.6 gm/dl (2.5-4.0) 10/01/23 19:06 Albumin/Globulin Ratio 1.6 (0.9-2) 10/01/23 19:06 TSH 1.405 uIu/ml (0.300-4.500) 10/01/23 19:06 Urine Color [place] 10/01/23 20:26 Urine Appearance Turbid (Clear) A 10/01/23 20: Urine pH 5.5 (4.5-7.5) 10/01/23 20:26 Ur Specific Hilbert 1.030 (1.000-1.030) 10/01/23 20:26 Urine Protein 2+ (Negative) H 10/01/23 20:26 Urine Glucose (UA) Negative (Negative) 10/01/23 20: Urine Ketones 1+ (Negative) H 10/01/23 20: Urine Blood Trace (Negative) H 10/01/23 20: Urine Nitrite Positive (Negative) A 10/01/23 20: Urine Bilirubin 2+ (Negative) H 10/01/23 20: Urine Urobilinogen Negative (Negative) 10/01/23 20:26 Ur Leukocyte Esterase Trace (Negative) H 10/01/23 20:26 Urine WBC (Auto) >30 /hpf (0-5) H 10/01/23 20:26 Urine RBC (Auto) 0-4 /hpf (0-4) 10/01/23 20:26 U Hyaline Cast (Auto) >30 /lpf (0-5) H 10/01/23 20:26 U Epithel Cells (Auto) >30 /lpf (0-5) H 10/01/23 20:26 Urine Bacteria (Auto) 3+ (Negative) H 10/01/23 20:26 Granular Casts 1-5 /lpf (0) H 10/01/23 20:26 Urine Yeast Not Reportable 10/01/23 20:26 Adenovirus (PCR) Not Detected (NotDetected) 10/01/23 Unknown B. pertussis DNA (PCR) Not Detected (NotDetected) 10/01/23 Unknown B.parapertussis DNA PCR Not Detected (NotDetected) 10/01/23 Unknown C. pneumoniae DNA (PCR) Not Detected (NotDetected) 10/01/23 Unknown Coronavirus OC43 (PCR) Not Detected (NotDetected) 10/01/23 Unknown Coronavirus HKU1 (PCR) Not Detected (NotDetected) 10/01/23 Unknown Coronavirus 229E (PCR) Not Detected (NotDetected) 10/01/23 Unknown SARS-CoV-2 (PCR) Not Detected (NotDetected) 10/01/23 Unknown Coronavirus NL63 (PCR) Not Detected (NotDetected) 10/01/23 Unknown Human Metapneumovir PCR Not Detected (NotDetected) 10/01/23 Unknown Influenza Type A (PCR) Not Detected (NotDetected) 10/01/23 Unknown Influenza Type B (PCR) Not Detected (NotDetected) 10/01/23 Unknown M. pneumoniae (PCR) Not Detected (NotDetected) 10/01/23 Unknown Parainfluenza 1 (PCR) Not Detected (NotDetected) 10/01/23 Unknown Parainfluenza 2 (PCR) Not Detected (NotDetected) 10/01/23 Unknown Parainfluenza 3 (PCR) Not Detected (NotDetected) 10/01/23 Unknown Parainfluenza 4 (PCR) Not Detected (NotDetected) 10/01/23 Unknown RSV (PCR) Not Detected (NotDetected) 10/01/23 Unknown Entero/Rhino (PCR) Not Detected (NotDetected) 10/01/23 Unknown Impressions Elbow X-Ray 10/01/23 18:34 XR humerus LT 2V, XR elbow LT min 3V routine CLINICAL HISTORY: Left elbow and arm pain, swelling, bruising, fall yesterday COMPARISON STUDY: None. FINDINGS: There is a slightly comminuted and displaced supracondylar fracture within the distal left humerus. No dislocation at the elbow joint. There is a left elbow effusion and soft tissue swelling. The fracture demonstrates up to 1.4 cm of medial displacement. No acute fracture or dislocation within the proximal left humerus. Degenerative changes noted at the left shoulder. IMPRESSION: Slightly comminuted and displaced supracondylar fracture within the distal left humerus. ACT 112: Negative or not required by law. Electronically signed by: Bobby Romano M.D. 10/01/2023 8:02 PM Humerus X-Ray 10/01/23 18:34 XR humerus LT 2V, XR elbow LT min 3V routine CLINICAL HISTORY: Left elbow and arm pain, swelling, bruising, fall yesterday COMPARISON STUDY: None. FINDINGS: There is a slightly comminuted and displaced supracondylar fracture within the distal left humerus. No dislocation at the elbow joint. There is a left elbow effusion and soft tissue swelling. The fracture demonstrates up to 1.4 cm of medial displacement. No acute fracture or dislocation within the proximal left humerus. Degenerative changes noted at the left shoulder. IMPRESSION: Slightly comminuted and displaced supracondylar fracture within the distal left humerus. ACT 112: Negative or not required by law. Electronically signed by: Bobby Romano M.D. 10/01/2023 8:[address] 10/02/23 09:00 CT elbow LT wo con CLINICAL HISTORY: Left elbow supracondylar fracture TECHNIQUE: Multidetector row helical CT of the left elbow was performed without intravenous contrast. Coronal and sagittal reformations were obtained. Automated dose lowering techniques and/or adjustment according to patient size were utilized for this examination. CT DOSE: 480.53 mGy.cm Comparison: Comparison is made to left elbow radiograph 10/01/2023 FINDINGS: Comminuted supracondylar fracture is seen with mild anterolateral displacement. The joint spaces are maintained. Soft tissue swelling is seen. IMPRESSION: Comminuted supracondylar fracture as above. ACT 112: Negative or not required by law. Electronically signed by: Law Reyez M.D. 10/02/2023 10:28 AM
--- NOTE | 2023-10-03 13:47 | Electrocardiogram Report ---
Test Reason : Blood Pressure : / mmHG Vent. Rate : 065 BPM Atrial Rate : 375 BPM P-R Int : 000 ms QRS Dur : 088 ms QT Int : 420 ms P-R-T Axes : 000 -32 012 degrees QTc Int : 436 ms Atrial fibrillation Left axis deviation Nonspecific ST abnormality Abnormal ECG When compared with ECG of 01-OCT-2023 19:04, Atrial fibrillation has replaced Sinus rhythm Vent. rate has decreased BY 38 BPM Criteria for Inferior infarct are no longer Present Confirmed by Caden Juarez ([id number]) on 10/03/2023 1:47:34 PM Referred By: REFERRED SELF Confirmed By:Caden Juarez
[2023-10-03] MEDS ORDERED: SODIUM CHLORIDE 0.9% 1,000 ML IV SCH (15:45)
--- NOTE | 2023-10-03 17:41 | Hospitalist Progress Note ---
Date of Service October 03, 2023 Assessment & Plan (1) Supracondylar fracture of humerus: Plan: left appreciate orthopedic consultation whether she needs operative Rx at this time is uncertain while awaiting final recs from ortho cont splint, sling, pain meds, etc check a 25-OH vit D level am (2) Rhabdomyolysis: Plan: Peak CPK of 1129. CPK nearly normal today. Can stop IV fluids. Cont to hold statin. Rhabdomyolysis was from her fall. BMP am for stability. (3) UTI (urinary tract infection): Plan: WBC of 28 upon presentation. Now 9 today. s/p rocephin x 2 doses to date. urine cx with gardnerella which is typically considered non-pathogenic. however, given the extreme leukocytosis, will complete total of 3 day of rocephin for this. (4) Elevated troponin: Plan: peak HS Troponin 58.8 - likely myocardial demand ischemia in setting of her fall, humerus Fx, UTI, etc. No evidence of ischemic event. Echo with normal EF and normal wall motion. (5) CKD (chronic kidney disease) stage 3, GFR 30-59 ml/min: Plan: CrCl at baseline low 30s c/w stage 3b BMP in am for stability (6) HTN (hypertension): Plan: controlled Continue Amlodipine 10mg po daily Continue Metoprolol succ 25mg po daily (7) History of stroke: Plan: 2019 R frontal-parietal lobe on MRI brain at that time CTA head/neck neg overnight developed rate-controlled a.fib CHADs-VASC is VERY HIGH quite possible prior CVA was a.fib related if surgery is not needed for #1 would start Eliquis for AC would stop plavix once Eliquis is begung resume statin in 1-2 days (8) Atrial fibrillation: Plan: overnight developed rate-controlled a.fib no symptoms from such no documented h/o a.fib in light of prior CVA very possible she has had undetected a.fib in the past continue telemetry continue meto succ she has very high CHADs-VASC score should be on AC once final plan for #1 is determined would recommend initiation of AC in the form of Eliquis if not cost prohibitive (9) Goiter: Plan: long-standing VERY LARGE should have dedicated thyroid u/s at some point TSH noted to be wnl no symptoms from her goiter at this time (10) Numbness of right hand: Plan: 2nd to subacute CVA? 2nd to cervical spine injury? numbness present since her fall check MRI brain - r/o CVA check c-spine MRI - r/o acute injury (although CT cervical spine was neg for acute findings) Plan Olivas was placed in ED, discontinue in am PT/OT consults appreciated --> both advise rehab post-discharge dispo planning Admission and Anticipated Discharge Date Admission Date: October 01, 2023 Subjective reports ongoing R hand numbness (and slightly on left hand as well) all fingers of right hand are affected started following her fall denies weakness of the right hand, right arm, or right leg denies headache denies neck pain states she did NOT pass out when she fell at home during my visit she was a little confused at times, sometimes repeating the same things feels a little dizzy with standing up Review of Systems Review of Systems: gen - no fevers, eating ok cv - no chest pain pulm - no dyspnea GI - no abd pain Physical Exam Physical Exam: gen - sitting in chair comfortably, NAD mouth - MMM neck - no JVD; large goiter present L>R; nontender anterior neck however; posterior cervical spine elements - nontender to palpation heart - irregular, s1 s2 lungs - CTA b/l abd - soft NT ND BS+ ext - left arm in splint and sling; fingers left hand with normal cap refill; handgrip on left 5/5; handgrip on right 5/5 neuro - no facial droop; strength 5/5 x 4 exts; sensation intact to right hand with light touch Results & Data Results & Data Vital Signs (Past 12 Hours) Vital Signs Temp Pulse Pulse Resp BP Pulse Ox O2 Del Method 10/03/23 15:08 36.9 C 72 20 110/72 96 Room Air 10/03/23 14:00 80 10/03/23 11:19 36.9 C 83 20 112/63 94 Room Air 10/03/23 08:02 36.7 C 73 20 112/74 93 Room Air 10/03/23 07:38 Room Air Laboratory Results Laboratory Results - last 24 hr 10/03/23 06:13 WBC 9.63 RBC 3.54 L Hgb 10.6 L Hct 32.3 L MCV 91.2 MCH 29.9 MCHC 32.8 RDW Std Deviation 46.7 H RDW Coeff of Cj 14.0 Plt Count 207 MPV 11.2 Sodium 143 Potassium 3.5 Chloride 114 H Carbon Dioxide 25 Anion Gap 4 BUN 32 H Creatinine 1.54 H Est Cr Clr Drug Dosing 30.6 Est GFR ( Amer) 35.5 Est GFR (Non-Af Amer) 30.7 BUN/Creatinine Ratio 20.8 H Glucose 97 Calcium 8.2 L Total Creatine Kinase 228 H Diagnostic Findings urine culture - gardnerella bacteria PG Care Time/CCT Total # of Minutes Spent Total Time Spent with Patient: Total time spent is greater than 50% in coordination of care (as documented) at patient's floor/unit and/or counseling patient: Coding Level of Care Code 64613 SUB INP/OBS CARE 3/50MIN Diagnoses Supracondylar fracture of humerus S42.413A Rhabdomyolysis M62.82 UTI (urinary tract infection) N39.0 Elevated troponin R79.89 CKD (chronic kidney disease) stage 3, GFR 30-59 ml/min N18.3 HTN (hypertension) I10 History of stroke Z86.73 Atrial fibrillation I48.91 Goiter E04.9 Numbness of right hand R20.0
--- NOTE | 2023-10-03 19:49 | Magnetic Resonance Report ---
MR brain wo con CLINICAL HISTORY: a.fib, R hand numbness, fall; eval CVA TECHNIQUE: Multiplanar and multisequence MR images of the brain were obtained without intravenous con trast. Comparison: Comparison is made to MRI brain 01/27/[address] head 10/01/2023 FINDINGS: No abnormal restricted diffusion is identified. Foci of T2 and FLAIR hyperintensity are noted in the paraventricular areas consistent with chronic small vessel ischemic disease. Ex vacuo ventriculomegal y and sulcal enlargement is noted compatible with diffuse volume loss. No mass is seen. There is no m ass effect or midline shift. There is no evidence of acute intraparenchymal hemorrhage. No extra axia l fluid collections are seen. The corpus callosum, pituitary gland, and cerebellar tonsils appear savana ssly unremarkable. Flow voids of the major intracranial arterial vessels are identified. The imaged portions of the para nasal sinuses, mastoid air cells, and orbits are unremarkable. IMPRESSION: Chronic volume loss and age related white matter changes without evidence of acute abnormality. No ev idence of acute infarct. ACT 112: Negative or not required by law. Electronically signed by: Law Reyez M.D. 10/03/2023 7:46 PM
--- NOTE | 2023-10-03 20:01 | Magnetic Resonance Report ---
MRI OF THE CERVICAL SPINE WITHOUT IV CONTRAST CLINICAL HISTORY: Fall. Right hand numbness. COMPARISON STUDY: CT of the cervical spine dated 10/01/2023. TECHNIQUE: MRI of the cervical spine was performed utilizing various T1 and T2-weighted sequences in the axial and sagittal planes. IV contrast was not administered for this examination. FINDINGS: Cervical spine: Vertebral body height and alignment are maintained throughout the cervical spine. The re is no MRI evidence of acute fracture. The atlantodens articulation is maintained. Anterior osteoph ytes are seen throughout. The spinous processes appear intact. No destructive bony lesion is seen. Ch ronic degenerative endplate changes are noted at C5-C6 and C6-C7. Minimal endplate edema is noted at C6-C7. Intervertebral discs: Disc desiccation and loss of height is seen throughout the cervical spine. Loss of height is moderate at C5-C6 and C6-C7. Spinal cord: The cervical cord is normal in morphology and signal intensity. C2-C3: The central canal is clear. Uncovertebral and facet arthropathy contribute to minimal left-elias ed neural foraminal narrowing. The right neural foramen is patent. C3-C4: The central canal is clear. Uncovertebral and facet arthropathy contribute to zzxripkq-we-jblv re left neural foraminal stenosis. The right neural foramen is patent. C4-C5: A posterior disc osteophyte complex minimally effaces the ventral subarachnoid space. Uncovert ebral and facet arthropathy contribute to wazkwtbx-gm-tivpjc left and mild right neural foraminal jose rowing. C5-C6: A posterior disc osteophyte complex effaces the ventral subarachnoid space. There is a right l ateral disc bulge. In conjunction with uncovertebral and facet arthropathy, there is severe bilateral neural foraminal stenosis. This likely impinges on the exiting bilateral C6 nerve roots. C6-C7: A posterior disc osteophyte complex abuts the ventral cord. Lateral disc bulge is seen bilater ally. In conjunction with facet arthropathy, there is severe left and igsbtysj-xs-wyiemf right neural foraminal stenosis. This likely impinges on the exiting left C7 nerve root. C7-T1: Unremarkable. T1-T2: Unremarkable. Soft tissues: There is mild nonspecific prevertebral edema at C3 and C4. This is best seen on sagitta l STIR image #8. The paraspinous soft tissues are within normal limits. Thyroid goiter is again noted . Brain parenchyma: The visualized brain parenchyma at the skull base is within normal limits. IMPRESSION: 1. There is no MRI evidence of fracture or subluxation involving the cervical spine. 2. There is mild nonspecific prevertebral edema at C3 and C4. A ligamentous injury is not excluded. C orrelate clinically. 3. Multilevel cervical spondylosis as above. See discussion for detailed level by level analysis 4. No destructive bony lesion is seen. Dictated: 10/03/2023 7:38 PM Transcribed: 10/03/2023 7:58 PM Vito [id number] [email or web address] Electronically signed by: Zaki Ibrahim M.D. 10/03/2023 8:00 PM
[2023-10-04] MEDS: cefTRIAXone SODIUM 2,000 MG in DEXTROSE 5 % MINI-B 50 ML IV SCH (05:39)
[2023-10-04 07:21] LABS: BUN Creatinine Ratio 22.2 (10-20); Calcium 8.1 mg/dl (8.6-10.3); Est GFR (African American) 33.4 ml/min; Est GFR (Non-African American) 28.8 ml/min; Potassium 3.6 mmol/L (3.5-5.1)
[2023-10-04] MEDS: CLOPIDOGREL BISULFATE 75 MG TAB PO SCH (09:09)
[2023-10-04] MEDS: amLODIPine BESYLATE 5 MG TAB PO SCH (09:09)
[2023-10-04] MEDS: METOPROLOL SUCC 25MG EXT REL TAB PO SCH (09:09)
[2023-10-04] MEDS: CHOLECALCIFEROL 5,000 UNITS 125 MCG TAB PO SCH (10:53)
[2023-10-04] MEDS: CYANOCOBALAMIN 1000 MCG/ML VIAL IM SCH (10:53)
--- NOTE | 2023-10-04 11:43 | Orthopedic Consultation ---
Date of Service October 04, 2023 Assessment & Plan (1) Cervical spondylosis: I discussed with the patient today about her cervical pathology in detail with ample amount of time for the patient to ask any questions or concerns. All questions were answered today to the patient's satisfaction. Patient's case was discussed with Dr. aLw. At this point, her MRI was only positive for degenerative changes with some prevertebral edema at C3 and C4 but she does not elicit any symptoms or discomfort at this level. From a cervical spine standpoint, we would not have any restrictions for her since she is not examining/experiencing any signs or symptoms of cervical pathology. As for the numbness into her hand, this may be secondary to trauma due to her fall on the right arm. This can be checked on an outpatient basis with a EMG if she does not regain baseline sensation that she had prior to the fall. She may follow-up with orthopedic spine once discharged. She may follow-up with Dr. Law if she wants to stay with the hospital system or she may follow-up with with [facility] since she will be getting her humerus fixed by them during the stay. Please reach out via [employer] text or my reaching out to [facility] orthopedics if this patient's situation is to change. History of Present Illness Reason for Consultation: . Abnormal C-Spine MRI Requesting Physician: . Attending Physician: Elgin Garay MD . Sun is a very pleasant 83-year-old female with a past medical history of HTN, CKD and prior CVAs who was found on the ground for almost 15 hours after a fall. She noted that she was feeling a pellet stove when she tripped over a bucket and landed predominantly on the right arm. When found by family, she was transported to the [facility] emergency department in which they did find a left supracondylar humerus fracture. This is being treated by [facility]. During preoperative workup, a MRI was done of the neck which yielded abnormal results prompted hospitalist to consult us for an orthopedic spine consult. She notes that she has no discomfort whatsoever to her neck. She notes that she did not have any neck pain after fall or even prior to the fall. She denies any orthopedic issues other than to her left elbow. She denies any other concerns today. Allergies Allergy/AdvReac Type Severity Reaction Status Date / Time No Known Allergies Allergy Mild 0 Verified 10/01/23 20:04 Home Medications Medication Instructions Recorded Confirmed Type metoprolol succinate 25 mg 25 mg PO QAM 01/27/20 10/01/23 History tablet,extended release 24 hr (Toprol XL) atorvastatin 40 mg tablet 40 mg PO QAM 30 days #30 tabs 01/28/20 10/01/23 Rx clopidogrel 75 mg tablet 75 mg PO QAM 30 days #30 tabs 01/28/20 10/01/23 Rx Andra's Leg Cramps 1 dose PO DIRECTED 10/01/23 10/01/23 History Total Beets 1 tab PO DAILY 10/01/23 10/01/23 History amlodipine 10 mg tablet 10 mg PO DAILY 10/01/23 10/01/23 History ibuprofen 200 mg tablet 400 mg PO Q6H PRN PAIN/FEVER 10/01/23 10/01/23 History turmeric 400 mg capsule 400 mg PO DAILY 10/01/23 10/01/23 History Past Med/Surg History Medical History (Updated 10/04/23 @ 11:57 by Tony Wood PA-C) Cervical spondylolysis History of stroke Hypertension CKD (chronic kidney disease) stage 3, GFR 30-59 ml/min Surgical History No pertinent past surgical history Family History Denies family history of Stroke Social History Smoking Status: Never smoker Hx Alcohol Use: Yes Hx Substance Use: No Preferred Language: Citizen Of [place] Communication Ability: Effective Floor Hand Required: No Beliefs That Will Affect Care: None marital status: Current Living Situation: Alone Feels Safe at Home: Yes Assistive Devices: Cane Review of Systems All systems reviewed & are unremarkable except as noted in HPI & below. Physical Exam .General: patient resting comfortably, NAD, non-toxic in appearance, AA&O x 4 Skin: bruises present on bilateral knees HEENT: NC/AT, PERRL, EOMI, anicteric sclera, conjunctiva without injection, external ear normal to inspection and nontender, nares patent, slightly dry mu cus membranes, dentition intact, no oropharyngeal lesions, neck supple, trachea midline, no LAD, no thyromegaly, no JVD Heart: +S1/S2, regular with ectopy, no m/r/g Lungs: equal air entry bilaterally, no rales/rhonchi/wheezes Abd: +BS, soft, NT/ND, no masses/organomegaly/ascites Ext: warm, 2+ pulses in UE/LE bilaterally, no clubbing/cyanosis or edema, LUE with splint and sling Neuro: nonfocal, patient AA&O x 4, speech intact, no facial droop, moving all extremities on command with equal strength 5/5 Musculoskeletal On physical examination of the cervical spine, she maintains cervical lordosis with no obvious muscle wasting. No tenderness over the spinal processes and paraspinous musculature. Normal range of motion when looking right and left. Normal range of motion looking up and down. Elicited no discomfort with any range of motion. Negative Spurling sign to the right and left. Equal strength withdrawal again. Normal sensation. Neurovascularly intact. +2 DP and PT pulses. Less than 2-second capillary refill. She does have a Band-Aid like sensation of numbness in her fingertips of the right hand. She has normal range of motion and strength to the right elbow, wrist, 5 digits. Results & Data Results & Data Laboratory Results . Diagnostic Findings Cervical Spine MRI 10/03/23 15:34 MRI OF THE CERVICAL SPINE WITHOUT IV CONTRAST CLINICAL HISTORY: Fall. Right hand numbness. COMPARISON STUDY: CT of the cervical spine dated 10/01/2023. TECHNIQUE: MRI of the cervical spine was performed utilizing various T1 and T2- weighted sequences in the axial and sagittal planes. IV contrast was not administered for this examination. FINDINGS: Cervical spine: Vertebral body height and alignment are maintained throughout the cervical spine. There is no MRI evidence of acute fracture. The atlantodens articulation is maintained. Anterior osteophytes are seen throughout. The spinous processes appear intact. No destructive bony lesion is seen. Chronic degenerative endplate changes are noted at C5-C6 and C6-C7. Minimal endplate edema is noted at C6-C7. Intervertebral discs: Disc desiccation and loss of height is seen throughout the cervical spine. Loss of height is moderate at C5-C6 and C6-C7. Spinal cord: The cervical cord is normal in morphology and signal intensity. C2-C3: The central canal is clear. Uncovertebral and facet arthropathy contribute to minimal left-sided neural foraminal narrowing. The right neural foramen is patent. C3-C4: The central canal is clear. Uncovertebral and facet arthropathy contribute to lxxcxixs-co-hhehuf left neural foraminal stenosis. The right neural foramen is patent. C4-C5: A posterior disc osteophyte complex minimally effaces the ventral subarachnoid space. Uncovertebral and facet arthropathy contribute to jurcozgv-dz-wavjpk left and mild right neural foraminal narrowing. C5-C6: A posterior disc osteophyte complex effaces the ventral subarachnoid space. There is a right lateral disc bulge. In conjunction with uncovertebral and facet arthropathy, there is severe bilateral neural foraminal stenosis. This likely impinges on the exiting bilateral C6 nerve roots. C6-C7: A posterior disc osteophyte complex abuts the ventral cord. Lateral disc bulge is seen bilaterally. In conjunction with facet arthropathy, there is severe left and gykxmhey-su-bavape right neural foraminal stenosis. This likely impinges on the exiting left C7 nerve root. C7-T1: Unremarkable. T1-T2: Unremarkable. Soft tissues: There is mild nonspecific prevertebral edema at C3 and C4. This is best seen on sagittal STIR image #8. The paraspinous soft tissues are within normal limits. Thyroid goiter is again noted. Brain parenchyma: The visualized brain parenchyma at the skull base is within normal limits. IMPRESSION: 1. There is no MRI evidence of fracture or subluxation involving the cervical spine. 2. There is mild nonspecific prevertebral edema at C3 and C4. A ligamentous inj ury is not excluded. Correlate clinically. 3. Multilevel cervical spondylosis as above. See discussion for detailed level by level analysis 4. No destructive bony lesion is seen. Dictated: 10/03/2023 7:38 PM Transcribed: 10/03/2023 7:58 PM Vito [id number] [email or web address] Electronically signed by: Zaki Ibrahim M.D. 10/03/2023 8:00 PM PG Care Time/CCT Total # of Minutes Spent Total Time Spent with Patient: Total time spent is greater than 50% in coordination of care (as documented) at patient's floor/unit and/or counseling patient: Coding Level of Care Code 58835 IN/OBS CONSULT LVL 3,45M Diagnoses Cervical spondylosis M47.812
--- NOTE | 2023-10-04 21:08 | Hospitalist Progress Note ---
Date of Service October 04, 2023 Assessment & Plan (1) Supracondylar fracture of humerus: Plan: left appreciate orthopedic consultation to OR tomorrow for operative repair NPO after MN tonight cont splint, sling, pain meds, etc until then hold plavix from cardiovascular standpoint is optimized echo early in admission with normal EF, etc mildly low vit D - replace (2) Rhabdomyolysis: Plan: Peak CPK of 1129. last CPK was nearly normal Cont to hold statin. Rhabdomyolysis was from her fall. (3) UTI (urinary tract infection): Plan: s/p rocephin x 3 doses. urine cx with gardnerella which is typically considered non-pathogenic. however, given the extreme leukocytosis she had at admission, completed total of 3 days of rocephin for this. (4) Elevated troponin: Plan: peak HS Troponin 58.8 - likely myocardial demand ischemia in setting of her fa ll, humerus Fx, UTI, etc. No evidence of ischemic event. Echo with normal EF and normal wall motion. (5) CKD (chronic kidney disease) stage 3, GFR 30-59 ml/min: Plan: CrCl at baseline low 30s c/w stage 3b BMP in am for stability Cr today 1.6 - slightly higher than baseline - had granular casts on admission u/a thus mild kidney injury (6) HTN (hypertension): Plan: controlled Continue Amlodipine 10mg po daily Continue Metoprolol succ 25mg po daily (7) History of stroke: Plan: 2019 R frontal-parietal lobe on MRI brain at that time CTA head/neck neg developed rate-controlled a.fib early in the stay CHADs-VASC is VERY HIGH quite possible prior CVA was a.fib related hold plavix post-op - when cleared by ortho - would start Eliquis BID (8) Atrial fibrillation: Plan: developed rate-controlled a.fib early in the stay and has remained in such since then no symptoms from a.fib no prior documented h/o a.fib in light of prior CVA very possible she has had undetected a.fib in the past continue telemetry continue meto succ she has very high CHADs-VASC score should be on AC - start post-op from #1 will need to check cost of Eliquis (9) Goiter: Plan: long-standing VERY LARGE should have dedicated thyroid u/s at some point TSH noted to be wnl no symptoms from her goiter at this time (10) Numbness of right hand: Plan: C7 distribution on right no CVA on MRI Brain no cervical fracture on CT or MRI 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 suspect C7 nerve impingement on right treat symptoms follow appreciate ortho-spine consult today - despite prevertebral edema at C3-C4 ligamentous injury not suspected no c-collar or other precautions needed (11) B12 deficiency: Plan: could contribute to gait issues, fall risk, etc vitamin B12 1000mcg IM daily x 5 days, then po supplementation following that (12) Vitamin D insufficiency: Plan: 25-OH vit D level 22 start vit D supplementation 5000 IU daily (13) Cervical spondylosis: Plan: advanced as seen on MRI c-spine see #10 above appreciate ortho-spine assistance Plan PT/OT consults appreciated --> both advise rehab post-discharge and post-surgery dispo planning Admission and Anticipated Discharge Date Admission Date: October 01, 2023 Subjective pt reports that the numbness of R hand continues but now it is only the thumb/2nd/3rd fingers slight numbness of a few fingers L hand denies any neck pain is to have surgery tomorrow on left humerus fracture she has had a mild cough today but denies dyspnea or orthopnea no abd pain had BM this am tele still with a.fib - rates <100 Review of Systems Review of Systems: gen - no fevers cv - no chest pain pulm - no dyspnea GI - no abd pain/nausea/emesis Physical Exam Physical Exam: gen - laying in bed comfortably, NAD, coughing occasionally mouth - MMM neck - no JVD; large goiter present L>R heart - irregular, s1 s2, no murmur lungs - CTA b/l abd - soft NT ND BS+ ext - left arm in splint and sling; fingers left hand with normal cap refill; handgrip on left 5/5; handgrip on right 5/5 Results & Data Results & Data Vital Signs (Past 12 Hours) Vital Signs Temp Pulse Pulse Resp BP Pulse Ox O2 Del Method 10/04/23 19:47 36.7 C 82 20 129/74 93 Room Air 10/04/23 14:59 36.7 C 94 H 16 104/68 96 Room Air 10/04/23 12:25 36.7 C 77 18 120/70 95 Room Air Laboratory Results Laboratory Results - last 24 hr 10/04/23 10/04/23 06:17 08:09 Hgb 11.0 L Hct 34.0 L Sodium 142 Potassium 3.6 Chloride 113 H Carbon Dioxide 24 Anion Gap 5 BUN 36 H Creatinine 1.62 H Est Cr Clr Drug Dosing 29.0 Est GFR ( Amer) 33.4 Est GFR (Non-Af Amer) 28.8 BUN/Creatinine Ratio 22.2 H Glucose 101 H POC Glucose 100 H Calcium 8.1 L Vitamin B12 107 L 25-OH Vitamin D Total 22.1 L PG Care Time/CCT Total # of Minutes Spent Total Time Spent with Patient: Total time spent is greater than 50% in coordination of care (as documented) at patient's floor/unit and/or counseling patient: Coding Level of Care Code 36716 SUB INP/OBS CARE 3/50MIN Diagnoses Supracondylar fracture of humerus S42.413A Rhabdomyolysis M62.82 UTI (urinary tract infection) N39.0 Elevated troponin R79.89 CKD (chronic kidney disease) stage 3, GFR 30-59 ml/min N18.3 HTN (hypertension) I10 History of stroke Z86.73 Atrial fibrillation I48.91 Goiter E04.9 Numbness of right hand R20.0 B12 deficiency E53.8 Vitamin D insufficiency E55.9 Cervical spondylosis M47.812
[2023-10-05] MEDS ORDERED: ceFAZolin 2000MG 2,000 MG/15 ML SYR IV SCH (06:00)
[2023-10-05] MEDS ORDERED: BUPIVACAINE 0.5 % 5 MG/1 ML PF 10ML VIAL ONE (06:24)
[2023-10-05] MEDS ORDERED: fentaNYL citrate PF 100 MCG/2 ML VIAL ONE ×2 (07:38→09:32)
[2023-10-05] MEDS ORDERED: MIDAZOLAM HCL 1 MG/ML 2ML VIAL ONE (07:38)
[2023-10-05 07:51] LABS: Calcium 8.2 mg/dl (8.6-10.3); Creatinine Clr Calc Pharmacy 32.5 ml/min; Est GFR (African American) 37.9 ml/min; Est GFR (Non-African American) 32.7 ml/min; Potassium 3.8 mmol/L (3.5-5.1)
[2023-10-05] MEDS: LACTATED RINGER'S 1,000 ML IV SCH (07:56)
--- NOTE | 2023-10-05 07:59 | Anesthesiology Consultation ---
Date of Service October 05, 2023 Assessment & Plan Chart Review Chart Review: Acceptable Risk for Surgery and Patient NOT seen in Pre Admission Testing Consults Requested none ASA ASA4 Proposed Anesthesia Anesthesia Type: General Risk / Benefits Reviewed With: PT / POA / Parent / Guardian, Accepts Plan and Informed Consent Obtained History Surgery Operation Date: 10/05/23 08:15 Proposed Procedures p Left Supracondylas Humerus Fracture Open Reduction Internal Fixation - Pedro Fam M.D. Height/Weight Height: 5 ft 7 in Weight: 87.2 kg Allergies Allergy/AdvReac Type Severity Reaction Status Date / Time No Known Allergies Allergy Mild 0 Verified 10/01/23 20:04 Medications Home Medications Medication Instructions Recorded Confirmed Last Taken metoprolol succinate 25 mg 25 mg PO QAM 01/27/20 10/01/23 01/27/20 tablet,extended release 24 hr (Toprol XL) atorvastatin 40 mg tablet 40 mg PO QAM 30 days #30 tabs 01/28/20 10/01/23 Unknown clopidogrel 75 mg tablet 75 mg PO QAM 30 days #30 tabs 01/28/20 10/01/23 Unknown Andra's Leg Cramps 1 dose PO DIRECTED 10/01/23 10/01/23 Unknown Total Beets 1 tab PO DAILY 10/01/23 10/01/23 Unknown amlodipine 10 mg tablet 10 mg PO DAILY 10/01/23 10/01/23 Unknown ibuprofen 200 mg tablet 400 mg PO Q6H PRN PAIN/FEVER 10/01/23 10/01/23 Unknown turmeric 400 mg capsule 400 mg PO DAILY 10/01/23 10/01/23 Unknown Active Medications Generic Name Dose Route Start Last Admin Trade Name Freq PRN Reason Stop Dose Admin Amlodipine Besylate 10 mg 10/02/23 09:00 10/04/23 09:09 Amlodipine Besylate 5 Mg Tab PO 11/01/23 08:59 10 mg DAILY FABIEN Administration Clopidogrel Bisulfate 75 mg 10/02/23 09:00 10/04/23 09:09 Clopidogrel Bisulfate 75 Mg Tab PO 11/01/23 08:59 75 mg QAM FABIEN Administration Cyanocobalamin 1,000 mcg 10/04/23 09:30 10/04/23 10:53 Cyanocobalamin 1000 Mcg/Ml Vial IM 10/09/23 09:29 1,000 mcg QAM FABIEN Administration Lactated Ringer's 1,000 mls @ 15 mls/hr 10/05/23 07:45 10/05/23 07:56 Lr IV 11/04/23 07:44 Not Given .Q24H FABIEN Metoprolol Succinate 25 mg 10/02/23 09:00 10/04/23 09:09 Metoprolol Succ 25mg Ext Rel Tab PO 11/01/23 08:59 25 mg QAM FABIEN Administration Vitamin D 5,000 units 10/04/23 09:30 10/04/23 10:53 Cholecalciferol 5,000 Units 125 Mcg Tab PO 11/03/23 09:29 5,000 units QAM FABIEN Administration NPO Date Last Intake of Fluids: 10/04/23 Time Last Intake of Fluids: 18:00 Date Last Intake of Solids: 10/04/23 Time Last Intake of Solids: 18:00 Past Medical History Medical History History of stroke Hypertension CKD (chronic kidney disease) stage 3, GFR 30-59 ml/min ASCVD Aorta HLD Atrial Fibrillaton obese Rhabdomyolysis elevated Troponin 2ndary to demand ishemia Anemia Exercise / Class Metabolic Activity III < 4 Walking/Shop/Light housework Past Family History Family History Denies family history of Stroke Past Surgical History Surgical History No pertinent past surgical history Past Anesthesia History No Hx of Anesthesia Complications and No Family Hx of Anesthesia Complications History of PONV No Hx of PONV and No Hx of Motion Sickness Social History Smoking Status: Never smoker Hx Alcohol Use: Yes alcohol intake frequency: holidays/special occasions only Hx Substance Use: No Physical Exam Vital Signs Last Vital Signs Temp 37 C 10/05/23 07:34 Pulse 66 10/05/23 07:34 Resp 16 10/05/23 07:34 BP 143/85 H 10/05/23 07:34 Pulse Ox 96 10/05/23 07:34 O2 Del Method Room Air 10/05/23 07:34 Constitutional + obese; no acute distress ENMT Mouth: + dentition abnormality and + edentulous Thyromental Distance: < 3.5 Finger Breadths Mallampati Class: II Neck normal visual inspection and trachea midline; neck extension not limited large goiter Respiratory normal respiratory effort Auscultation: lungs clear to auscultation bilaterally and + diminished lung sounds Cardiovascular Rate/Rhythm: + abnormal rate (irregular / A Fib) and + abnormal rhythm (irregular/A Fib) Heart Sounds: no murmur Vessels: no carotid bruit Musculoskeletal Spine: normal cervical ROM and no pain with cervical ROM Extremities: + limited ROM of extremities (LUE); + extremities abnormal to inspection (LUE) Neurologic moves all extremities Motor/Sensory: no sensory deficit Psychiatric Orientation: alert and oriented x 3 Testing Laboratory Results 10/04/23 06:17 10/05/23 07:13 PT 10.5 Seconds (9.0-12.0) 10/01/23 19:06 INR 1.0 (0.9-1.1) 10/01/23 19:06 Urine Color [place] 10/01/23 20: Urine Appearance Turbid (Clear) A 10/01/23 20: Urine pH 5.5 (4.5-7.5) 10/01/23 20:26 Ur Specific [place] 1.030 (1.000-1.030) 10/01/23 20: Urine Protein 2+ (Negative) H 10/01/23 20: Urine Glucose (UA) Negative (Negative) 10/01/23 20: Urine Ketones 1+ (Negative) H 10/01/23 20:26 Urine Nitrite Positive (Negative) A 10/01/23 20:26 Ur Leukocyte Esterase Trace (Negative) H 10/01/23 20:26 Urine WBC (Auto) >30 /hpf (0-5) H 10/01/23 20:26 Urine RBC (Auto) 0-4 /hpf (0-4) 10/01/23 20:26 U Hyaline Cast (Auto) >30 /lpf (0-5) H 10/01/23 20:26 U Epithel Cells (Auto) >30 /lpf (0-5) H 10/01/23 20:26 Urine Bacteria (Auto) 3+ (Negative) H 10/01/23 20:26 10/01/23 20:01 Aerobic Blood Culture - Preliminary Blood No growth in Aerobic bottle after 48 hours. Anaerobic Blood Culture - Final 10/01/23 19:06 Aerobic Blood Culture - Preliminary Blood No growth in Aerobic bottle after 48 hours. Anaerobic Blood Culture - Preliminary No growth in Anaerobic bottle after 48 hours. 10/01/23 20:26 Urine Culture - Final Urine,Straight Cath Gardnerella-like bacilli Electrocardiogram Date: 10/02/23 Findings: + AFIB @ (@ 64;LAD;NS ST Abnl) Chest X-Ray Date: 10/01/23 Findings: + NAD, + cardiomegaly and + atherosclerosis of thoracic aorta Echocardiogram Date: 10/02/23 EF: 60% LV Function: normal RWMA: + none Valvular Disease: + no significant valvular disease
[2023-10-05] MEDS ORDERED: LIDOCAINE 1% LOCAL 20 ML VIAL ONE (08:04)
[2023-10-05] MEDS ORDERED: BUPIVACAINE 0.5 % 5 MG/1 ML MPF 30ML VIAL ONE (08:04)
--- NOTE | 2023-10-05 08:08 | History & Physical Bridge Note ---
Date of Service October 05, 2023 History & Physical Bridge Note I have examined the patient, reviewed the History & Physical and in the interval since the performance of the History & Physical I have noted the following changes of clinical significance: Patient seen and examined. She denies any pain in her left elbow at rest. Splint was removed skin was inspected. There is diffuse ecchymosis centered around the elbow joint. She does have pain with motion. She denies any pain in that elbow prior to this fall. This therefore appears consistent with an acute supracondylar humerus fracture. I would recommend ORIF to stabilize this fracture, and she is in agreement. Risks, benefits, and alternatives of surgery were explained in detail. The surgical procedure, as well as postoperative recovery and rehabilitation, was also explained in detail. Risks include bleeding; infection; damage to surrounding structures such as nerves, blood vessels, and tendons that run in the area; persistent pain or stiffness; nonunion; malunion; hardware failure; post-traumatic arthritis; painful prominent hardware requiring removal; or need for further surgery. The patient understands all of this and wishes to proceed with surgery. Informed consent was obtained. Of note, she states that she lives alone and frequently falls. She states that this has happened several times before she falls and is unable to get up due to poor overall strength. I advised her that this certainly does not seem like a safe situation, and I would recommend alternative living arrangements.
[2023-10-05] MEDS: SODIUM CHLORIDE 0.9% 1,000 ML IV SCH ×2 (08:11→12:50)
[2023-10-05] MEDS ORDERED: ePHEDrine sulfate 50 MG/ML AMP IV PRN (08:44)
[2023-10-05] MEDS ORDERED: ATROPINE SULFATE 0.1 MG/ML 10ML SYR IV PRN (08:44)
[2023-10-05] MEDS ORDERED: LABETALOL HCL IV 5 MG/ML 20ML IV PRN (08:44)
[2023-10-05] MEDS ORDERED: fentaNYL citrate PF 100 MCG/2 ML VIAL IV PRN (08:44)
[2023-10-05] MEDS ORDERED: PROMETHAZINE HCL 12.5 MG in SODIUM CHLORIDE 0.9% 50 ML IV PRN (08:44)
[2023-10-05] MEDS ORDERED: FLUMAZENIL 0.1 MG/1 ML 10 ML VIAL IV PRN (08:44)
[2023-10-05] MEDS ORDERED: NALOXONE HCL 0.4 MG/1 ML VIAL/CARP IV PRN ×2 (08:44→12:10)
[2023-10-05] MEDS ORDERED: ONDANSETRON INJ 2 MG/ML 2 ML VIAL IV PRN ×2 (08:44→12:10)
[2023-10-05] MEDS ORDERED: PROPOFOL IV EMULSION 10 MG/ML 20 ML VIAL IV ONE (08:55)
[2023-10-05] MEDS ORDERED: ePHEDrine sulfate 50 MG/5 ML SYR ONE (08:55)
[2023-10-05] MEDS ORDERED: DEXAMETHASONE SOD INJ 4 MG/ML VIAL ONE (08:55)
[2023-10-05] MEDS ORDERED: ONDANSETRON INJ 2 MG/ML 2 ML VIAL ONE (08:55)
[2023-10-05] MEDS ORDERED: LIDOCAINE 2% 2 ML VIAL/AMP(20MG/ML) INFIL ONE (08:55)
[2023-10-05] MEDS ORDERED: ROCURONIUM BROMIDE 10 MG/ML 5 ML VIAL IV ONE (08:55)
[2023-10-05] MEDS ORDERED: ceFAZolin 2000MG 2,000 MG/15 ML SYR IV ONE (09:31)
[2023-10-05] MEDS ORDERED: SUGAMMADEX SODIUM 200 MG/2 ML VIAL IV ONE (10:24)
--- NOTE | 2023-10-05 11:03 | Operative Report ---
Post Operative Report Pre & Post Diagnosis Operation Date: 10/05/23 08:15 Preoperative Diagnosis: Left elbow displaced supracondylar distal humerus fracture without intercondylar split Postoperative Diagnosis: Left elbow displaced supracondylar distal humerus fracture without intercondylar split I identified the patient and participated in the time-out.: Yes Procedure Operation Date: 10/05/23 08:15 Procedure Performed: Left elbow open reduction and internal fixation of displaced supracondylar distal humerus fracture ([id number]) Surgeon Pedro Fam MD Insole Doubler Jose A Lacey PA-C Estimated Blood Loss 50 Findings Consistent with Post-Op Diagnosis Specimens None Drains None Anesthesia Type General Complications none Disposition Disposition: Recovery Room Description of Procedure Patient was identified in the preoperative holding area. Operative extremity was marked. Regional blockade was not performed due to preoperative anticoa gulant use. Patient was then brought back to the operating room, and general anesthesia was induced without complication. Appropriate weight-based dose of Ancef was infused intravenously for antibiotic prophylaxis. The patient was then turned into the lateral decubitus position with the operative arm up. Tourniquet was placed on the left upper arm. Arm was then prepped and draped in a standard sterile fashion using Chlorhexidine prep. The arm was then exsanguinated with an Esmarch, and the tourniquet was inflated. I first made a curvilinear incision over the posterior elbow, taking the incision laterally around the olecranon tip. I incised sharply down to the triceps tendon at the proximal end of the incision, and to the deep fascia distally. I elevated full-thickness flaps medially and laterally. Along the medial aspect of the wound, I carefully bluntly dissected and identified the ulnar nerve. The ulnar nerve was dissected out through cubital tunnel and around the medial epicondyle for later plate placement. Dissection was carried out proximally along the posterior border of the medial intermuscular septum up to the planned proximal extent of the medial plate placement. A [place] drain was placed around the ulnar nerve to gently manipulate and protect the nerve throughout the remainder of the case. I then opened medial and lateral windows along the border of the triceps muscle to expose the medial and lateral aspects of the distal humeral shaft. Radial nerve was identified proximally along the lateral border of the triceps and protected throughout the case. I then inspected the fracture site. This was a significantly displaced but minimally comminuted fracture of the distal humerus. The fracture was in the supracondylar region, but was quite low, especially through the medial column, just proximal to the capitellum. Hematoma debris within the fracture site was debrided with a curette, suction, and ronguer. I then performed a reduction of the fracture and held this in place with a fracture reduction clamps and K-wires driven up the medial and lateral columns. The lateral column fracture was too distal for adequate fixation with the Synthes 3.5 mm extra-articular posterolateral plate. I therefore chose an appropriate length 2.7/3.5 mm variable angle posterior lateral locking plate from the Synthes distal humerus fracture set. This was position first on the distal fracture fragment for maximal capture of the capitellum area, and two 2.7 mm locking screws were used to fixate the distal fragment, being careful to keep the screws unicortical to avoid penetration into the radiocapitellar joint. I then placed a nonlocking screw into the lateral column of the humeral shaft. Fluoroscopic imaging was used to verify proper fracture reduction and plate placement. I then placed additional locking screws as necessary to complete the fracture fixation along the lateral column. Bone was noted to be severely osteopenic. I then selected a medial plate slightly longer than the posterior lateral plate to avoid stress riser in the humeral shaft. I then drove 2.7 mm locking screws transversely across the distal humerus articular "spool". The proximal portion of the plate was then reduced down to the medial humeral shaft with a nonlocking 3.5 mm screw. Additional locking and nonlocking screws were placed as necessary to complete the fracture fixation. Final fluoroscopic images were obtained to verify fracture reduction, hardware placement, and screw length. I took the elbow through full range of motion, and no crepitus was felt in the elbow joint, and no hardware impingement was appreciated. After fracture fixation was complete, I then evaluated the ulnar nerve. I verified that the ulnar nerve was completely intact and uninjured at the completion of hardware placement. I took the elbow through range of motion, and there was no gross subluxation of the ulnar nerve over the medial epicondyle. I therefore decided to leave the nerve as it lay in its normal position posterior to the medial epicondyle. Wound was then copiously irrigated with sterile saline. Layered closure was then performed with 3-0 Vicryl and 3-0 Prolene. Wound bed was anesthetized with a 50-50 mixture of 1% lidocaine and 0.5% Marcaine without epinephrine. Tourniquet was let down, and sterile dressings were applied with Xeroform, sterile gauze, and sterile Webril, followed by a posterior plaster splint and Quan wrap. The drapes were removed, the patient was awakened from anesthesia, and taken to the Post Anesthesia Care Unit in stable condition. There were no immediate complications from the procedure. I was present and scrubbed for the entire procedure. Due to the complex nature of the procedure, the entire surgery was performed with the operational assistance of Jose A Lacey PA-C. The assistant analyst, under direct supervision, was involved in the performance of all aspects of the surgical procedure including hemostasis, tissue incision and retraction, instrument management, patient positioning, and wound closure. I attest to the content of the Intraoperative Record and any orders documented therein. Any exceptions are noted below.
--- NOTE | 2023-10-05 11:36 | Hospitalist Progress Note ---
Date of Service October 05, 2023 Assessment & Plan (1) Supracondylar fracture of humerus: Plan: left s/p ORIF today appreciate ortho assistance cont sling, pain meds, etc cont to hold plavix mildly low vit D - replace will inquire with ortho about when we can start Eliquis for a.fib tomorrow? 48 hours post-op? (2) Rhabdomyolysis: Plan: Peak CPK of 1129. last CPK was nearly normal Cont to hold statin. Rhabdomyolysis was from her fall. (3) UTI (urinary tract infection): Plan: s/p rocephin x 3 doses. urine cx with gardnerella which is typically considered non-pathogenic. however, given the extreme leukocytosis she had at admission, completed total of 3 days of rocephin for this. now off antibiotics (although did receive IV ancef for her operation today which would also cover the urine) (4) Elevated troponin: Plan: peak HS Troponin 58.8 - likely myocardial demand ischemia in setting of her fall, humerus Fx, UTI, etc. No evidence of ischemic event. Echo with normal EF and normal wall motion. (5) CKD (chronic kidney disease) stage 3, GFR 30-59 ml/min: Plan: CrCl at baseline low 30s c/w stage 3b BMP today stable had granular casts on admission u/a c/w mild kidney injury BMP am (6) HTN (hypertension): Plan: controlled Continue Amlodipine 10mg po daily Continue Metoprolol succ 25mg po daily (7) History of stroke: Plan: 2019 R frontal-parietal lobe on MRI brain at that time CTA head/neck neg developed rate-controlled a.fib early in the stay CHADs-VASC is VERY HIGH quite possible prior CVA was a.fib related hold plavix post-op - when cleared by ortho - would start Eliquis BID (8) Atrial fibrillation: Plan: developed rate-controlled a.fib early in the stay and has remained in such since then no symptoms from a.fib no prior documented h/o a.fib in light of prior CVA very possible she has had undetected a.fib in the past continue telemetry continue meto succ she has very high CHADs-VASC score should be on AC - start post-op from #1 will need to check cost of Eliquis (9) Goiter: Plan: long-standing VERY LARGE should have dedicated thyroid u/s at some point TSH noted to be wnl no symptoms from her goiter at this time (10) Numbness of right hand: Plan: C7 distribution on right still with mild symptoms but nothing severe no CVA on MRI Brain no cervical fracture on CT or MRI 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 suspect C7 nerve impingement on right treat symptoms follow appreciate ortho-spine consult - despite prevertebral edema at C3-C4 ligamentous injury not suspected no c-collar or other precautions needed (11) B12 deficiency: Plan: could contribute to gait issues, fall risk, etc vitamin B12 1000mcg IM daily x 5 days, then po supplementation following that day #2 of 5 of the parenteral B12 (12) Vitamin D insufficiency: Plan: 25-OH vit D level 22 cont vit D supplementation 5000 IU daily (13) Cervical spondylosis: Plan: advanced as seen on MRI c-spine see #10 above appreciate ortho-spine assistance Plan PT/OT consults appreciated --> both advise rehab post-discharge and post-surgery dispo planning son updated Admission and Anticipated Discharge Date Admission Date: October 01, 2023 Subjective saw patient post-op from her L humerus ORIF resting comfortably except for mild pain in L arm son at bedside no dyspnea but has a mild dry cough no chest pain no abd pain tele overnight - a.fib Review of Systems Review of Systems: gen - no fevers cv - no cp, no orthopnea pulm - no sputum GI - no abd pain/nausea Physical Exam Physical Exam: gen - laying in bed comfortably, NAD mouth - MMM neck - no JVD; large goiter present L>R heart - irregular, s1 s2, no murmur lungs - CTA b/l abd - soft NT ND BS+ ext - left arm in splint and sling; fingers left hand with normal cap refill and normal temperature psych - awake/alert Results & Data Results & Data Vital Signs (Past 12 Hours) Vital Signs Temp Pulse Pulse Pulse Resp BP Pulse Ox 10/05/23 11:25 74 14 146/78 H 98 10/05/23 11:15 86 16 150/86 H 96 10/05/23 11:07 36.1 C L 87 16 137/71 98 10/05/23 07:34 37 C 66 16 143/85 H 96 10/05/23 03:07 36.5 C 69 18 125/73 93 10/05/23 00:00 79 O2 Del Method O2 Flow Rate 10/05/23 11:25 Oxymask 4 10/05/23 11:15 Oxymask 4 10/05/23 11:07 Oxymask 6 10/05/23 07:34 Room Air 10/05/23 03:07 Room Air 10/05/23 00:00 Laboratory Results Laboratory Results - last 24 hr 10/05/23 07:13 WBC RBC Hgb Hct MCV MCH MCHC RDW Std Deviation RDW Coeff of Cj Plt Count MPV Sodium 142 Potassium 3.8 Chloride 113 H Carbon Dioxide 25 Anion Gap 4 BUN 35 H Creatinine 1.46 H Est Cr Clr Drug Dosing 32.5 Est GFR ( Amer) 37.9 Est GFR (Non-Af Amer) 32.7 BUN/Creatinine Ratio 24.0 H Glucose 99 Calcium 8.2 L Blood Type O Negative Antibody Screen NEGATIVE PG Care Time/CCT Total # of Minutes Spent Total Time Spent with Patient: Total time spent is greater than 50% in coordination of care (as documented) at patient's floor/unit and/or counseling patient: Coding Level of Care Code 00098 SUB INP/OBS CARE 2/35MIN Diagnoses Supracondylar fracture of humerus S42.413A Rhabdomyolysis M62.82 UTI (urinary tract infection) N39.0 Elevated troponin R79.89 CKD (chronic kidney disease) stage 3, GFR 30-59 ml/min N18.3 HTN (hypertension) I10 History of stroke Z86.73 Atrial fibrillation I48.91 Goiter E04.9 Numbness of right hand R20.0 B12 deficiency E53.8 Vitamin D insufficiency E55.9 Cervical spondylosis M47.812
--- NOTE | 2023-10-05 11:37 | Fluoroscopy Report ---
FL elbow LT 2V CLINICAL HISTORY: Left elbow open reduction and internal fixation. COMPARISON STUDY: Left elbow radiographs October 01, 2023. CT of the left elbow October 02, 2023. FLUOROSCOPY TIME: 56 seconds. FLUOROSCOPIC IMAGES: 3 FINDINGS: Fluoroscopy was provided during open reduction and internal fixation of the left humeral [place] pracondylar fracture. Fracture alignment has improved and appears near anatomic. Hardware is intact. There are no unexpected radiopaque foreign bodies. IMPRESSION: Fluoroscopy provided during open reduction and internal fixation of the left humeral sup racondylar fracture. ACT 112: Negative or not required by law. Electronically signed by: Nakul Pastor M.D. 10/05/2023 11:35 AM
--- NOTE | 2023-10-05 12:02 | Anesthesiology Progress Note ---
Date of Service October 05, 2023 Anesthesia Post Procedure Vital Signs Vital Signs: Temp Pulse Pulse Pulse Resp BP Pulse Ox 10/05/23 11:35 36.6 C 80 16 146/85 H 95 10/05/23 11:25 74 14 146/78 H 98 10/05/23 11:15 86 16 150/86 H 96 10/05/23 11:07 36.1 C L 87 16 137/71 98 10/05/23 07:34 37 C 66 16 143/85 H 96 10/05/23 03:07 36.5 C 69 18 125/73 93 10/05/23 00:00 79 10/04/23 23:27 36.6 C 75 18 126/67 93 10/04/23 21:00 10/04/23 19:47 36.7 C 82 20 129/74 93 10/04/23 14:59 36.7 C 94 H 16 104/68 96 10/04/23 12:25 36.7 C 77 18 120/70 95 O2 Del Method O2 Flow Rate 10/05/23 11:35 Nasal Cannula 2 10/05/23 11:25 Oxymask 4 10/05/23 11:15 Oxymask 4 10/05/23 11:07 Oxymask 6 10/05/23 07:34 Room Air 10/05/23 03:07 Room Air 10/05/23 00:00 10/04/23 23:27 Room Air 10/04/23 21:00 Room Air 10/04/23 19:47 Room Air 10/04/23 14:59 Room Air 10/04/23 12:25 Room Air Pain Intensity Left Arm: Pain Intensity: 0 Transfer of Care Handoff Completed per policy Notes Mental Status: alert / awake / arousable Patient Amnestic to Procedure: Yes Nausea / Vomiting: adequately controlled Pain: adequately controlled Airway Patency, RR, SpO2: stable & adequate BP & HR: stable & adequate Hydration State: stable & adequate Anesthetic Complications: no major complications apparent
[2023-10-05] MEDS ORDERED: MAGNESIUM HYDROXIDE SUSP 30 ML UDC PO PRN (12:10)
[2023-10-05] MEDS ORDERED: METOCLOPRAMIDE HCL INJ 5 MG/ML 2 ML VIAL IV PRN (12:10)
[2023-10-05] MEDS ORDERED: bisacodyL 10 MG SUPP PR PRN (12:10)
[2023-10-05] MEDS: amLODIPine BESYLATE 5 MG TAB PO SCH (12:48)
[2023-10-05] MEDS: CHOLECALCIFEROL 5,000 UNITS 125 MCG TAB PO SCH (12:48)
[2023-10-05] MEDS: METOPROLOL SUCC 25MG EXT REL TAB PO SCH (12:49)
[2023-10-05] MEDS: CYANOCOBALAMIN 1000 MCG/ML VIAL IM SCH (12:49)
[2023-10-05] MEDS: ACETAMINOPHEN 325 MG TAB PO PRN (19:29)
[2023-10-05] MEDS: ceFAZolin 2000MG 2,000 MG/15 ML SYR IV SCH (19:30)
[2023-10-05] MEDS: SENNA 8.6 MG TAB PO SCH (19:32)
[2023-10-05] MEDS: DOCUSATE SODIUM 100 MG CAP PO SCH (19:32)
[2023-10-06] MEDS: ceFAZolin 2000MG 2,000 MG/15 ML SYR IV SCH (02:14)
[2023-10-06] MEDS: SODIUM CHLORIDE 0.9% 1,000 ML IV SCH ×2 (04:47→08:37)
[2023-10-06] MEDS: ACETAMINOPHEN 325 MG TAB PO PRN ×2 (04:49→19:58)
[2023-10-06 06:36] LABS: Hematocrit (blood only) 30.7 % (37.0-47.0); Mean Corpuscular Hemoglobin 29.9 pg (25.0-34.0); Mean Corpuscular Hgb Conc 32.6 g/dL (32.0-36.0); Mean Corpuscular Volume 91.9 fL (80.0-100.0); Mean Platelet Volume 10.8 fL (9.4-12.4); Platelet Count 200 K/uL (130-400); RDW Coefficient of Variation 13.7 % (11.5-14.5); RDW Standard Deviation 46.6 fL (36.4-46.3); Red Blood Count 3.34 M/uL (4.20-5.40); White Blood Count 11.95 K/ul (4.8-10.8)
[2023-10-06 07:02] LABS: BUN Creatinine Ratio 24.5 (10-20); Calcium 7.9 mg/dl (8.6-10.3); Est GFR (African American) 37.6 ml/min; Est GFR (Non-African American) 32.4 ml/min; Potassium 4.1 mmol/L (3.5-5.1)
--- NOTE | 2023-10-06 08:20 | Orthopedic Progress Note ---
Date of Service October 06, 2023 Assessment & Plan (1) Closed supracondylar fracture of left elbow: Plan: 83 yo female stable POD #1 s/p ORIF left supracondylar humerus fracture 1. Med management 2. DVT prophylaxis- may resume Eliquis today 24 hrs postop, SCDs 3. D/C planning- Admission and Anticipated Discharge Date Admission Date: October 01, 2023 Subjective Pt resting in bed, moderate pain but controlled Physical Exam Physical Exam: Splint/dressing intact left UE, fingers swollen, mobile, NVI Results & Data Vital Signs (Past 12 Hours) Vital Signs Temp Pulse Pulse Pulse Resp BP Pulse Ox 10/06/23 03:04 36.9 C 87 16 153/80 H 95 10/06/23 00:00 83 10/05/23 22:41 36.6 C 87 18 114/70 94 O2 Del Method 10/06/23 03:04 Room Air 10/06/23 00:00 10/05/23 22:41 Room Air Laboratory Results 10/06/23 10/05/23 Range/Units 06:14 07:13 WBC 11.95 H (4.8-10.8) K/ul RBC 3.34 L (4.20-5.40) M/uL Hgb 10.0 L (12.0-16.0) g/dl Hct 30.7 L (37.0-47.0) % MCV 91.9 (80.0-100.0) fL MCH 29.9 (25.0-34.0) pg MCHC 32.6 (32.0-36.0) g/dL RDW Std Deviation 46.6 H (36.4-46.3) fL RDW Coeff of Cj 13.7 (11.5-14.5) % Plt Count 200 (130-400) K/uL MPV 10.8 (9.4-12.4) fL Sodium 140 (136-145) mmol/L Potassium 4.1 (3.5-5.1) mmol/L Chloride 112 H (98-107) mmol/L Carbon Dioxide 23 (21-32) mmol/L Anion Gap 5 (3-11) BUN 36 H (6-23) mg/dl Creatinine 1.47 H (0.6-1.2) mg/dl Est Cr Clr Drug Dosing 33.0 ml/min Est GFR ( Amer) 37.6 ml/min Est GFR (Non-Af Amer) 32.4 ml/min BUN/Creatinine Ratio 24.5 H (10-20) Glucose 107 H (70-99(Fasting)) mg/dl Calcium 7.9 L (8.6-10.3) mg/dl Blood Type O Negative Antibody Screen NEGATIVE
[2023-10-06] MEDS: ATORVASTATIN 40 MG TAB PO SCH (08:36)
[2023-10-06] MEDS: LACTATED RINGER'S 1,000 ML IV SCH (08:37)
[2023-10-06] MEDS: MULTIVITAMIN TAB PO SCH (08:37)
[2023-10-06] MEDS: CLOPIDOGREL BISULFATE 75 MG TAB PO SCH (08:37)
[2023-10-06] MEDS: CHOLECALCIFEROL 5,000 UNITS 125 MCG TAB PO SCH (08:37)
[2023-10-06] MEDS: METOPROLOL SUCC 25MG EXT REL TAB PO SCH (08:37)
[2023-10-06] MEDS: DOCUSATE SODIUM 100 MG CAP PO SCH ×2 (08:37→20:55)
[2023-10-06] MEDS: amLODIPine BESYLATE 5 MG TAB PO SCH (08:37)
[2023-10-06] MEDS: CYANOCOBALAMIN 1000 MCG/ML VIAL IM SCH (08:38)
--- NOTE | 2023-10-06 17:10 | Hospitalist Progress Note ---
Date of Service October 06, 2023 Assessment & Plan (1) Supracondylar fracture of humerus: Plan: left POD #1 s/p ORIF by Dr Fam appreciate ortho assistance cont sling, pain meds, etc mildly low vit D - replace inquired with ortho about when we can start Eliquis for a.fib - clearance given for such today [facility] referral has been made for post-discharge rehab (2) Rhabdomyolysis: Plan: Peak CPK of 1129. last CPK was nearly normal Rhabdomyolysis was from her fall at home. Statin resumed. (3) UTI (urinary tract infection): Plan: s/p rocephin x 3 doses. urine cx with gardnerella which is typically considered non-pathogenic. however, given the extreme leukocytosis she had at admission, completed total of 3 days of rocephin for this. now off antibiotics (although did receive IV ancef for her operation today which would also cover the urine) (4) Elevated troponin: Plan: peak HS Troponin 58.8 - likely myocardial demand ischemia in setting of her fall, humerus Fx, UTI, etc. No evidence of ischemic event. Echo with normal EF and normal wall motion. (5) CKD (chronic kidney disease) stage 3, GFR 30-59 ml/min: Plan: CrCl at baseline low 30s c/w stage 3b BMP again stable today had granular casts on admission u/a c/w mild kidney injury BMP am for stability (6) HTN (hypertension): Plan: controlled Continue Amlodipine 10mg po daily Continue Metoprolol succ 25mg po daily (7) History of stroke: Plan: 2019 R frontal-parietal lobe on MRI brain at that time CTA head/neck neg developed rate-controlled a.fib early in the stay CHADs-VASC is VERY HIGH quite possible prior CVA was a.fib related STOP PLAVIX start Eliquis 5mg BID (weight is 90 kg, Cr 1.4, age 83 - borderline needing reduced dose - watch renal function) (8) Atrial fibrillation: Plan: developed rate-controlled a.fib early in the stay and has remained in such since then no symptoms from a.fib no prior documented h/o a.fib in light of prior CVA very possible she has had undetected a.fib in the past continue telemetry continue meto succ she has very high CHADs-VASC score should be on AC start Eliquis 5mg BID as above (9) Goiter: Plan: long-standing VERY LARGE should have dedicated thyroid u/s at some point TSH noted to be wnl no symptoms from her goiter at this time (10) Numbness of right hand: Plan: C7 distribution on right still with mild symptoms but nothing severe no CVA on MRI Brain no cervical fracture on CT or MRI 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 suspect C7 nerve impingement on right treat symptoms follow appreciate ortho-spine consult - despite prevertebral edema at C3-C4 ligamentous injury not suspected no c-collar or other precautions needed (11) B12 deficiency: Plan: could contribute to gait issues, fall risk, etc vitamin B12 1000mcg IM daily x 5 days, then po supplementation following that day #3 of 5 of the parenteral B12 (12) Vitamin D insufficiency: Plan: 25-OH vit D level 22 cont vit D supplementation 5000 IU daily (13) Cervical spondylosis: Plan: advanced as seen on MRI c-spine see #10 above appreciate ortho-spine assistance (14) Acute blood loss anemia: Plan: 4 gram drop from admission (14 --> 10) could consider once daily ferrous sulfate (15) Acute encephalopathy: Plan: hospital psychosis likely has not received narcotics supportive care recent UTI treated follow Plan PT/OT consults appreciated --> both advise rehab post-discharge and post-surgery dispo - [facility] referral son updated at bedside yesterday Admission and Anticipated Discharge Date Admission Date: October 01, 2023 Subjective no events only complaint is that of L arm pain she was a little confused during the visit stating "how did my x-rays go yesterday?" I was perplexed at first as I didn't recall any x-rays being done and indeed no provider had ordered any x-rays (she thought she had x-rays of her abdomen) she also told me and the nurse "I have bruises on my toes and right hand and back" (which is not true) denied any chest pain, dyspnea, cough, abd pain, nausea or emesis she asked about rehab Review of Systems Review of Systems: gen - no fevers or chills cv - no orthopnea pulm - no dyspnea or VASQUEZ GI - no abd pain Physical Exam Physical Exam: gen - laying in bed comfortably, NAD, confused skin - no bruises on legs, feet, hands, or back mouth - MMM neck - no JVD; large goiter present L>R heart - irregular, s1 s2, no murmur lungs - CTA b/l abd - soft NT ND BS+ ext - left arm in splint and sling; fingers left hand with normal cap refill and normal temperature; mild edema of fingers of left hand psych - awake/alert but confused Results & Data Results & Data Vital Signs (Past 12 Hours) Vital Signs Temp Pulse Pulse Resp BP Pulse Ox O2 Del Method 10/06/23 16:39 36.5 C 86 18 124/53 L 93 Room Air 10/06/23 11:35 36.8 C 76 18 103/67 93 Room Air 10/06/23 09:00 79 10/06/23 08:25 36.6 C 79 18 119/70 94 Room Air Laboratory Results Laboratory Results 10/05/23 10/06/23 07:13 06:14 WBC 11.95 H RBC 3.34 L Hgb 10.0 L Hct 30.7 L MCV 91.9 MCH 29.9 MCHC 32.6 RDW Std Deviation 46.6 H RDW Coeff of Cj 13.7 Plt Count 200 MPV 10.8 Sodium 140 Potassium 4.1 Chloride 112 H Carbon Dioxide 23 Anion Gap 5 BUN 36 H Creatinine 1.47 H Est Cr Clr Drug Dosing 33.0 Est GFR ( Amer) 37.6 Est GFR (Non-Af Amer) 32.4 BUN/Creatinine Ratio 24.5 H Glucose 107 H Calcium 7.9 L Blood Type O Negative Antibody Screen NEGATIVE PG Care Time/CCT Total # of Minutes Spent Total Time Spent with Patient: Total time spent is greater than 50% in coordination of care (as documented) at patient's floor/unit and/or counseling patient: Coding Level of Care Code 20300 SUB INP/OBS CARE 2/35MIN Diagnoses Supracondylar fracture of humerus S42.413A Rhabdomyolysis M62.82 UTI (urinary tract infection) N39.0 Elevated troponin R79.89 CKD (chronic kidney disease) stage 3, GFR 30-59 ml/min N18.3 HTN (hypertension) I10 History of stroke Z86.73 Atrial fibrillation I48.91 Goiter E04.9 Numbness of right hand R20.0 B12 deficiency E53.8 Vitamin D insufficiency E55.9 Cervical spondylosis M47.812 Acute blood loss anemia D62 Acute encephalopathy G93.40
[2023-10-06] MEDS: SENNA 8.6 MG TAB PO SCH (19:58)
[2023-10-06] MEDS: APIXABAN 5 MG TABLET PO SCH (20:55)
[2023-10-06] MEDS: MELATONIN 3 MG TAB PO SCH (22:18)
[2023-10-07 07:21] LABS: Hematocrit (blood only) 30.7 % (37.0-47.0); Hemoglobin 9.9 g/dl (12.0-16.0); Mean Corpuscular Hemoglobin 29.8 pg (25.0-34.0); Mean Corpuscular Hgb Conc 32.2 g/dL (32.0-36.0); Mean Corpuscular Volume 92.5 fL (80.0-100.0); Mean Platelet Volume 10.7 fL (9.4-12.4); Platelet Count 191 K/uL (130-400); Red Blood Count 3.32 M/uL (4.20-5.40); White Blood Count 10.74 K/ul (4.8-10.8)
[2023-10-07 07:43] LABS: BUN Creatinine Ratio 25.7 (10-20); Calcium 8.2 mg/dl (8.6-10.3); Creatinine Clr Calc Pharmacy 32.8 ml/min; Est GFR (African American) 37.3 ml/min; Est GFR (Non-African American) 32.2 ml/min; Potassium 4.3 mmol/L (3.5-5.1)
--- NOTE | 2023-10-07 07:58 | Orthopedic Progress Note ---
Date of Service October 07, 2023 Assessment & Plan (1) Closed supracondylar fracture of left elbow: Plan: 83 yo female stable POD #2 s/p ORIF left supracondylar humerus fracture -Med management -DVT prophylaxis- may resume Eliquis 24 hrs postop, SCDs -Nonweightbearing left upper extremity. Encouraged finger range of motion. Splint is to remain in place until follow-up. -D/C planning-as per medicine. Patient is orthopedically stable at this point. Orthopedics will sign off. She can follow-up with Dr. Fam's clinic 10 to 14 days postoperatively. She can call [phone] for an appointment. Please call with any questions or concerns. Thank you. Admission and Anticipated Discharge Date Admission Date: October 01, 2023 Subjective Patient resting in bed this morning. She states she does have mild pain but is improving. Otherwise feeling well without other complaints. Denies chest pain, shortness of breath, nausea/vomiting/diarrhea, any headaches or dizziness. Review of Systems Review of Systems: All systems reviewed & are unremarkable except as noted in Subjective Physical Exam Physical Exam: Left arm: Sling is in place. Splint and dressing is clean, dry, intact. Fingers are mobile. Patient able to extend her thumb. She does have mild amount of swelling into her fingers. Distally neurovascular status and sensation is grossly intact. Constitutional: WD/WN, vitals as above Results & Data Vital Signs (Past 12 Hours) Vital Signs Temp Pulse Pulse Resp BP Pulse Ox O2 Del Method 10/07/23 04:18 36.8 C 82 18 110/68 97 Room Air 10/06/23 22:47 36.7 C 80 20 110/70 92 Room Air 10/06/23 22:00 79
[2023-10-07] MEDS ORDERED: HYDROCODONE/ACETAMOPHEN 5/325MG TAB PO PRN (08:54)
[2023-10-07] MEDS: amLODIPine BESYLATE 5 MG TAB PO SCH (10:05)
[2023-10-07] MEDS: APIXABAN 5 MG TABLET PO SCH ×2 (10:05→22:26)
[2023-10-07] MEDS: CHOLECALCIFEROL 5,000 UNITS 125 MCG TAB PO SCH (10:05)
[2023-10-07] MEDS: CYANOCOBALAMIN 1000 MCG/ML VIAL IM SCH (10:05)
[2023-10-07] MEDS: MULTIVITAMIN TAB PO SCH (10:06)
[2023-10-07] MEDS: ATORVASTATIN 40 MG TAB PO SCH (10:06)
[2023-10-07] MEDS: DOCUSATE SODIUM 100 MG CAP PO SCH ×2 (10:06→22:27)
[2023-10-07] MEDS: METOPROLOL SUCC 25MG EXT REL TAB PO SCH (10:06)
[2023-10-07] MEDS: ACETAMINOPHEN 325 MG TAB PO SCH ×3 (10:11→22:26)
--- NOTE | 2023-10-07 18:17 | Hospitalist Progress Note ---
Date of Service October 07, 2023 Assessment & Plan (1) Supracondylar fracture of humerus: Plan: left POD #2 s/p ORIF by Dr Fam appreciate ortho assistance cont sling, pain meds, etc mildly low vit D - replace DVT proph - Eliquis [facility] referral has been made for post-discharge rehab - pending (2) Rhabdomyolysis: Plan: Peak CPK of 1129. last CPK was nearly normal Rhabdomyolysis was from her fall at home. Statin resumed. (3) UTI (urinary tract infection): Plan: s/p rocephin x 3 doses. urine cx with gardnerella which is typically considered non-pathogenic. however, given the extreme leukocytosis she had at admission, completed total of 3 days of rocephin for this. now off antibiotics remove odell in am tomorrow (4) Elevated troponin: Plan: peak HS Troponin 58.8 - likely myocardial demand ischemia in setting of her fall, humerus Fx, UTI, etc. No evidence of ischemic event. Echo with normal EF and normal wall motion. (5) CKD (chronic kidney disease) stage 3, GFR 30-59 ml/min: Plan: CrCl at baseline low 30s c/w stage 3b BMP again stable today had granular casts on admission u/a c/w mild kidney injury (6) HTN (hypertension): Plan: controlled Continue Amlodipine 10mg po daily Continue Metoprolol succ 25mg po daily (7) History of stroke: Plan: 2019 R frontal-parietal lobe on MRI brain at that time CTA head/neck neg developed rate-controlled a.fib early in the stay CHADs-VASC is VERY HIGH quite possible prior CVA was a.fib related STOPPED PLAVIX started Eliquis 5mg BID (weight is 90 kg, Cr 1.4, age 83 - borderline needing reduced dose - watch renal function) (8) Atrial fibrillation: Plan: developed rate-controlled a.fib early in the stay and has remained in such since then no symptoms from a.fib no prior documented h/o a.fib in light of prior CVA very possible she has had undetected a.fib in the past continue telemetry continue meto succ she has very high CHADs-VASC score cont Eliquis 5mg BID (9) Goiter: Plan: long-standing VERY LARGE should have dedicated thyroid u/s at some point TSH noted to be wnl no symptoms from her goiter at this time (10) Numbness of right hand: Plan: improving C7 distribution on right no CVA on MRI Brain no cervical fracture on CT or MRI 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 suspect C7 nerve impingement on right - perhaps her fall aggravated the pre- existing DJD appreciate ortho-spine consult - despite prevertebral edema at C3-C4 ligamentous injury not suspected no c-collar or other precautions needed (11) B12 deficiency: Plan: could contribute to gait issues, fall risk, etc vitamin B12 1000mcg IM daily x 5 days, then po supplementation following that day #4 of 5 of the parenteral B12 (12) Vitamin D insufficiency: Plan: 25-OH vit D level 22 cont vit D supplementation 5000 IU daily (13) Cervical spondylosis: Plan: advanced as seen on MRI c-spine see #10 above appreciate ortho-spine assistance (14) Acute blood loss anemia: Plan: 4 gram drop from admission (14 --> 10) could consider once daily ferrous sulfate but having constipation - defer for now until constipation is better H/H stable today (15) Acute encephalopathy: Plan: hospital psychosis likely has not received narcotics supportive care recent UTI treated follow pleasant confusion only - no agitation Plan PT/OT consults appreciated --> both advise rehab post-discharge and post-surgery dispo - [facility] referral sons updated at bedside today Admission and Anticipated Discharge Date Admission Date: October 01, 2023 Subjective no acute issues today 2 sons at bedside right hand numbness improved left arm pain improved odell still in place; she is ok with having it removed last BM? Review of Systems Review of Systems: cv - no chest pain pulm - occasional cough; no dyspnea GI - no abd pain/N/V Physical Exam Physical Exam: gen - laying in bed comfortably, NAD mouth - MMM neck - no JVD; large goiter present L>R heart - irregular, s1 s2, no murmur lungs - CTA b/l abd - soft NT ND BS+ ext - left arm in splint and sling; fingers left hand with normal cap refill and normal temperature; mild edema of fingers of left hand - improving psych - awake/alert - slightly confused Results & Data Results & Data Vital Signs (Past 12 Hours) Vital Signs Temp Pulse Pulse Resp BP Pulse Ox O2 Del Method 10/07/23 15:51 36.7 C 61 18 104/66 94 Room Air 10/07/23 15:23 72 10/07/23 12:09 37.1 C 74 18 117/59 L 93 Room Air 10/07/23 09:19 36.6 C 75 18 145/75 H 94 Room Air 10/07/23 08:00 73 Laboratory Results Laboratory Results - last 24 hr 10/07/23 06:59 WBC 10.74 RBC 3.32 L Hgb 9.9 L Hct 30.7 L MCV 92.5 MCH 29.8 MCHC 32.2 RDW Std Deviation 47.0 H RDW Coeff of Cj 14.0 Plt Count 191 MPV 10.7 Sodium 140 Potassium 4.3 Chloride 111 H Carbon Dioxide 25 Anion Gap 4 BUN 38 H Creatinine 1.48 H Est Cr Clr Drug Dosing 32.8 Est GFR ( Amer) 37.3 Est GFR (Non-Af Amer) 32.2 BUN/Creatinine Ratio 25.7 H Glucose 101 H Calcium 8.2 L PG Care Time/CCT Total # of Minutes Spent Total Time Spent with Patient: Total time spent is greater than 50% in coordination of care (as documented) at patient's floor/unit and/or counseling patient: Coding Level of Care Code 13611 SUB INP/OBS CARE 2/35MIN Diagnoses Supracondylar fracture of humerus S42.413A Rhabdomyolysis M62.82 UTI (urinary tract infection) N39.0 Elevated troponin R79.89 CKD (chronic kidney disease) stage 3, GFR 30-59 ml/min N18.3 HTN (hypertension) I10 History of stroke Z86.73 Atrial fibrillation I48.91 Goiter E04.9 Numbness of right hand R20.0 B12 deficiency E53.8 Vitamin D insufficiency E55.9 Cervical spondylosis M47.812 Acute blood loss anemia D62 Acute encephalopathy G93.40
[2023-10-07] MEDS: SENNA 8.6 MG TAB PO SCH (22:27)
[2023-10-07] MEDS: MELATONIN 3 MG TAB PO SCH (22:28)
[2023-10-08] MEDS: CYANOCOBALAMIN 1000 MCG/ML VIAL IM SCH (08:40)
[2023-10-08] MEDS: DOCUSATE SODIUM 100 MG CAP PO SCH ×2 (08:40→21:42)
[2023-10-08] MEDS: APIXABAN 5 MG TABLET PO SCH ×2 (08:40→21:42)
[2023-10-08] MEDS: METOPROLOL SUCC 25MG EXT REL TAB PO SCH (08:40)
[2023-10-08] MEDS: CHOLECALCIFEROL 5,000 UNITS 125 MCG TAB PO SCH (08:40)
[2023-10-08] MEDS: ATORVASTATIN 40 MG TAB PO SCH (08:40)
[2023-10-08] MEDS: MULTIVITAMIN TAB PO SCH (08:40)
[2023-10-08] MEDS: amLODIPine BESYLATE 5 MG TAB PO SCH (08:40)
[2023-10-08] MEDS: ACETAMINOPHEN 325 MG TAB PO SCH ×3 (08:41→21:41)
[2023-10-08] MEDS: POLYETHYLENE (MIRALAX) 17 GM PACK PO SCH (13:25)
--- NOTE | 2023-10-08 19:57 | Hospitalist Progress Note ---
Date of Service October 08, 2023 Assessment & Plan (1) Supracondylar fracture of humerus: Plan: left POD #3 s/p ORIF by Dr Fam appreciate ortho assistance cont sling, pain meds, etc mildly low vit D - replace DVT proph - Eliquis [facility] referral has been made for post-discharge rehab - pending (2) Rhabdomyolysis: Plan: Peak CPK of 1129. last CPK was nearly normal Rhabdomyolysis was from her fall at home. Statin resumed. (3) UTI (urinary tract infection): Plan: s/p rocephin x 3 doses. urine cx with gardnerella which is typically considered non-pathogenic. however, given the extreme leukocytosis she had at admission, completed total of 3 days of rocephin for this. now off antibiotics remove odell today (4) Elevated troponin: Plan: peak HS Troponin 58.8 - likely myocardial demand ischemia in setting of her fall, humerus Fx, UTI, etc. No evidence of ischemic event. Echo with normal EF and normal wall motion. (5) CKD (chronic kidney disease) stage 3, GFR 30-59 ml/min: Plan: CrCl at baseline low 30s c/w stage 3b had granular casts on admission u/a c/w mild kidney injury repeat BMP am for stability (6) HTN (hypertension): Plan: controlled Continue Amlodipine 10mg po daily Continue Metoprolol succ 25mg po daily (7) History of stroke: Plan: 2019 R frontal-parietal lobe on MRI brain at that time CTA head/neck neg developed rate-controlled a.fib early in the stay CHADs-VASC is VERY HIGH quite possible prior CVA was a.fib related STOPPED PLAVIX started Eliquis 5mg BID (weight is 90 kg, Cr 1.4, age 83 - borderline needing reduced dose - watch renal function) (8) Atrial fibrillation: Plan: developed rate-controlled a.fib early in the stay and has remained in such since then no symptoms from a.fib no prior documented h/o a.fib in light of prior CVA very possible she has had undetected a.fib in the past continue telemetry continue meto succ she has very high CHADs-VASC score cont Eliquis 5mg BID (9) Goiter: Plan: long-standing VERY LARGE should have dedicated thyroid u/s at some point TSH noted to be wnl no symptoms from her goiter at this time (10) Numbness of right hand: Plan: improving C7 distribution on right no CVA on MRI Brain no cervical fracture on CT or MRI 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 suspect C7 nerve impingement on right - perhaps her fall aggravated the pre- existing DJD appreciate ortho-spine consult - despite prevertebral edema at C3-C4 ligamentous injury not suspected no c-collar or other precautions needed (11) B12 deficiency: Plan: could contribute to gait issues, fall risk, etc vitamin B12 1000mcg IM daily x 5 days, then po supplementation following that dose #4 of 5 of the parenteral B12 (12) Vitamin D insufficiency: Plan: 25-OH vit D level 22 cont vit D supplementation 5000 IU daily (13) Cervical spondylosis: Plan: advanced as seen on MRI c-spine see #10 above appreciate ortho-spine assistance (14) Acute blood loss anemia: Plan: 4 gram drop from admission (14 --> 10) could consider once daily ferrous sulfate but having constipation - defer for now until constipation is better (15) Acute encephalopathy: Plan: improved hospital psychosis was likely has not received narcotics supportive care recent UTI treated follow pleasant confusion only - no agitation Plan PT/OT consults appreciated --> both advise rehab post-discharge and post-surgery dispo - [facility] referral sons updated at bedside yesterday Admission and Anticipated Discharge Date Admission Date: October 01, 2023 Subjective pt resting in bed odell removed ~10am this am I saw her mid-afternoon - she still hadn't voided on her own staff report large normal calibre BM yesterday eating fair/good minor pain L arm numbness in both hands improved no new complaints Review of Systems Review of Systems: cv - no chest pain pulm - no dyspnea GI - no abd pain/nausea/emesis Physical Exam Physical Exam: gen - laying in bed comfortably, NAD mouth - MMM neck - no JVD; large goiter present L>R - unchanged heart - irregular, s1 s2, no murmur lungs - CTA b/l abd - soft NT ND BS+ ext - left arm in splint and sling; fingers left hand with normal cap refill and normal temperature; mild edema of fingers of left hand - improving psych - awake/alert - seems less confused today Results & Data Results & Data Vital Signs (Past 12 Hours) Vital Signs Temp Pulse Pulse Resp BP Pulse Ox O2 Del Method 10/08/23 15:36 36.5 C 82 18 106/66 95 Room Air 10/08/23 14:51 79 10/08/23 11:41 36.5 C 69 18 96/66 L 96 Room Air 10/08/23 08:15 36.7 C 75 20 124/76 94 Room Air 10/08/23 08:00 63 PG Care Time/CCT Total # of Minutes Spent Total Time Spent with Patient: Total time spent is greater than 50% in coordination of care (as documented) at patient's floor/unit and/or counseling patient: Coding Level of Care Code 86550 SUB INP/OBS CARE 11/23MIN Diagnoses Supracondylar fracture of humerus S42.413A Rhabdomyolysis M62.82 UTI (urinary tract infection) N39.0 Elevated troponin R79.89 CKD (chronic kidney disease) stage 3, GFR 30-59 ml/min N18.3 HTN (hypertension) I10 History of stroke Z86.73 Atrial fibrillation I48.91 Goiter E04.9 Numbness of right hand R20.0 B12 deficiency E53.8 Vitamin D insufficiency E55.9 Cervical spondylosis M47.812 Acute blood loss anemia D62 Acute encephalopathy G93.40
[2023-10-08] MEDS: MELATONIN 3 MG TAB PO SCH (21:42)
[2023-10-08] MEDS: SENNA 8.6 MG TAB PO SCH (21:43)
[2023-10-09 06:51] LABS: Calcium 8.5 mg/dl (8.6-10.3); Creatinine Clr Calc Pharmacy 30.7 ml/min; Est GFR (Non-African American) 30.2 ml/min; Magnesium 2.3 mg/dl (1.7-2.4); Potassium 4.4 mmol/L (3.5-5.1)
[2023-10-09] MEDS: APIXABAN 5 MG TABLET PO SCH (08:53)
[2023-10-09] MEDS: MULTIVITAMIN TAB PO SCH (08:53)
[2023-10-09] MEDS: ATORVASTATIN 40 MG TAB PO SCH (08:53)
[2023-10-09] MEDS: CYANOCOBALAMIN 1000 MCG/ML VIAL IM SCH (08:53)
[2023-10-09] MEDS: CHOLECALCIFEROL 5,000 UNITS 125 MCG TAB PO SCH (08:53)
[2023-10-09] MEDS: ACETAMINOPHEN 325 MG TAB PO SCH ×2 (08:54→13:24)
[2023-10-09] MEDS: METOPROLOL SUCC 25MG EXT REL TAB PO SCH ×2 (08:54→09:14)
[2023-10-09] MEDS: DOCUSATE SODIUM 100 MG CAP PO SCH ×2 (08:54→08:59)
[2023-10-09] MEDS: POLYETHYLENE (MIRALAX) 17 GM PACK PO SCH ×2 (08:54→08:58)
[2023-10-09] MEDS: amLODIPine BESYLATE 5 MG TAB PO SCH (09:15)
--- NOTE | 2023-10-09 16:23 | Discharge Summary ---
Date of Service date of admission - October 01, 2023 date of discharge - October 09, 2023 Admission HPI Per Admitting Provider Sun Hinojosa is a pleasant 83yo female with history of HTN, CKD and prior CVAs presenting from home after being found down. She reports that she was filling the pellet stove yesterday and she tripped over the bucket. She fell to the floor and landed predominantly on her right arm. She may have hit her head but did not lose consciousness. She was unable to get up and laid on the floor for at least 15 hours before her family found her. She was incontinent of urine and feces. Patient states that she was in her usual state of health before the fall. She denies fever, chills, cough, SOB. Denies abdominal pain, nausea, vomiting or diarrhea. She has no urinary complaints or back pain. In the ER she is afebrile, HD stable. ER Course: Cefepime 2gm IV Vancomycin 1750mg IV NSS x 2L Odell placed Principal Diagnosis 1. Fall with resulting Left elbow supracondylar distal humerus fracture - s/p ORIF by Dr Pedro Fam 10/05/23 2. Acute blood loss anemia 3. Vitamin D insufficiency (level = 22) 4. Vitamin B12 deficiency (level = 107) 5. New-onset atrial fibrillation 6. Large goiter with normal TSH level 7. 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 Rhabdomyolysis - 2nd to fall - resolved 9. Urinary tract infection - resolved 10. Prior history of stroke 11. CKD stage 3b, baseline Cr 1.4 to 1.5 12. Hypertension Discharge Exam gen - laying in bed comfortably, NAD mouth - MMM neck - no JVD; large goiter present L lobe>R lobe - unchanged heart - irregular, s1 s2, no murmur; rate <100 BPM lungs - CTA b/l abd - soft NT ND BS+ ext - left arm in splint and sling; fingers left hand with normal cap refill and normal temperature; mild edema of fingers of left hand - improving psych - awake/alert/oriented Discharge Data Allergies Allergy/AdvReac Type Severity Reaction Status Date / Time No Known Allergies Allergy Mild 0 Verified 10/01/23 20:04 Consultations Orthopedic Surgery - Dr Pedro Fam Orthopedic Spine Surgery - Dr Michele Law PT, OT Procedures Performed Operation Date: 10/05/23 08:15 Actual Procedures Left Supracondylar Humerus Fracture Open Reduction Internal Fixation - Pedro Fam M.D. Echocardiogram - EF 60-65%, normal valve function, no pericardial effusion. Ordered Studies Cervical Spine CT 10/01/23 18:[address] DOSE: 1205.68 mGy.cm HISTORY: Neck pain. fall TECHNIQUE: Multiaxial CT images of the cervical spine were performed and reformatted in the sagittal and coronal plane without the use of contrast. A dose lowering technique was utilized adhering to the principles of ALARA. COMPARISON: CTA neck 01/27/2020.. FINDINGS: No fractures. No subluxation. Prevertebral soft tissues and the C1-C2 interval are intact. No pneumothorax. Large predominant left-sided multinodular thyroid goiter again noted. This is similar to the prior study. Moderate to severe disc space narrowing at C5-C7. Moderate facet degenerative changes throughout the cervical spine. IMPRESSION: 1. No fractures within the cervical spine. 2. Multinodular thyroid goiter again noted. ACT 112: Negative or not required by law. Electronically signed by: Bobby Romano M.D. 10/01/2023 7:42 PM Chest X-Ray 10/01/23 18:34 XR chest 1V portable HISTORY: weakness, fall COMPARISON: Chest 06/06/2019. FINDINGS: No pneumothorax. No pleural fusions. The heart remains mildly enlarged. Mild diffuse interstitial thickening which is likely chronic. No new focal lung consolidations to suggest a pneumonia. No evidence for pulmonary edema. Degenerative changes again noted within the shoulders. There are calcifications within the aortic knob. No acute fractures identified. IMPRESSION: No significant change compared to the prior study. No acute process. ACT 112: Negative or not required by law. Electronically signed by: Bobby Romano M.D. 10/01/2023 7:56 PM Elbow X-Ray 10/01/23 18:34 XR humerus LT 2V, XR elbow LT min 3V routine CLINICAL HISTORY: Left elbow and arm pain, swelling, bruising, fall yesterday COMPARISON STUDY: None. FINDINGS: There is a slightly comminuted and displaced supracondylar fracture within the distal left humerus. No dislocation at the elbow joint. There is a left elbow effusion and soft tissue swelling. The fracture demonstrates up to 1.4 cm of medial displacement. No acute fracture or dislocation within the proximal left humerus. Degenerative changes noted at the left shoulder. IMPRESSION: Slightly comminuted and displaced supracondylar fracture within the distal left humerus. ACT 112: Negative or not required by law. Electronically signed by: Bobby Romano M.D. 10/01/2023 8:02 PM Humerus X-Ray 10/01/23 18:34 XR humerus LT 2V, XR elbow LT min 3V routine CLINICAL HISTORY: Left elbow and arm pain, swelling, bruising, fall yesterday COMPARISON STUDY: None. FINDINGS: There is a slightly comminuted and displaced supracondylar fracture within the distal left humerus. No dislocation at the elbow joint. There is a left elbow effusion and soft tissue swelling. The fracture demonstrates up to 1.4 cm of medial displacement. No acute fracture or dislocation within the proximal left humerus. Degenerative changes noted at the left shoulder. IMPRESSION: Slightly comminuted and displaced supracondylar fracture within the distal left humerus. ACT 112: Negative or not required by law. Electronically signed by: Bobby Romaon M.D. 10/01/2023 8:02 PM Knee X-Ray 10/01/23 18:34 XR knee LT 3V, XR knee RT 3V CLINICAL HISTORY: Bilateral knee pain. Fall. COMPARISON STUDY: None. FINDINGS: The bones are osteopenic. Mild vascular calcifications are noted. No acute fracture or dislocation within the right or left knee. No significant soft tissue swelling. No significant knee effusions. IMPRESSION: No fractures within the right or left knee. ACT 112: Negative or not required by law. Electronically signed by: Bobby Romano M.D. 10/01/2023 8:05 PM Knee X-Ray 10/01/23 18:34 XR knee LT 3V, XR knee RT 3V CLINICAL HISTORY: Bilateral knee pain. Fall. COMPARISON STUDY: None. FINDINGS: The bones are osteopenic. Mild vascular calcifications are noted. No acute fracture or dislocation within the right or left knee. No significant soft tissue swelling. No significant knee effusions. IMPRESSION: No fractures within the right or left knee. ACT 112: Negative or not required by law. Electronically signed by: Bobby Romano M.D. 10/01/2023 8:[address] 10/01/23 18:[address] DOSE: HISTORY: fall TECHNIQUE: Multiaxial CT images of the head were performed without the use of intravenous contrast. Automated exposure control was utilized for this study. A dose lowering technique was utilized adhering to the principles of ALARA. Comparison: Head CT 01/27/2020. Findings: The paranasal sinuses and mastoid air cells are clear. The calvarium and skull base are intact. There is no mass, hematoma, midline shift, acute infarct. White matter hypodensity is nonspecific but suggestive of microvascular ischemic change. The ventricles and sulci demonstrate mild age-related involutional changes. Old left frontal lobe infarct again noted. Old left cerebellar infarcts. Impression: No acute intracranial abnormality. Atrophy and microvascular ischemic changes. ACT 112: Negative or not required by law. Electronically signed by: Bobby Romano M.D. 10/01/2023 7:37 PM Abdomen/Pelvis CT 10/01/23 19:52 Exam(s): CT ABDOMEN + PELVIS Without Contrast EXAM: CT Abdomen and Pelvis Without Intravenous Contrast CLINICAL HISTORY: Reason for exam: sepsis, fall, elev LFTs. TECHNIQUE: Axial computed tomography images of the abdomen and pelvis without intravenous contrast. CTDI is 25.08 mGy and DLP is 1298.94 mGy-cm. Automated exposure control was utilized for the study. A dose lowering technique was utilized adhering to the principles of ALARA. COMPARISON: No relevant prior studies available. FINDINGS: Lung bases: Unremarkable. No mass. No consolidation. Mediastinum: Small hiatal hernia. ABDOMEN: Liver: Unremarkable. Gallbladder and bile ducts: Unremarkable. No calcified stones. No ductal dilation. Pancreas: Unremarkable. No ductal dilation. Spleen: Unremarkable. No splenomegaly. Adrenals: Unremarkable. No mass. Kidneys and ureters: Unremarkable. No obstructing stones. No hydronephrosis. Stomach and bowel: Diverticulosis, without acute diverticulitis. No small bowel obstruction. No free intraperitoneal air. PELVIS: Appendix: No findings to suggest acute appendicitis. Bladder: With Odell catheter terminates in a decompressed urinary bladder. Reproductive: Unremarkable as visualized. ABDOMEN and PELVIS: Intraperitoneal space: Unremarkable. No free air. No significant fluid collection. Bones/joints: Degenerative changes of the spine. No acute fracture. No dislocation. Soft tissues: Unremarkable. Vasculature: Atherosclerotic changes of the aorta. No abdominal aortic aneurysm. Lymph nodes: Unremarkable. No enlarged lymph nodes. IMPRESSION: 1. Small hiatal hernia. 2. Diverticulosis, without acute diverticulitis. No small bowel obstruction. No free intraperitoneal air. Electronically signed by: Darien Jiménez MD 10/01/23 22:[address] 10/02/23 09:00 CT elbow LT wo con CLINICAL HISTORY: Left elbow supracondylar fracture TECHNIQUE: Multidetector row helical CT of the left elbow was performed without intravenous contrast. Coronal and sagittal reformations were obtained. Automated dose lowering techniques and/or adjustment according to patient size were utilized for this examination. CT DOSE: 480.53 mGy.cm Comparison: Comparison is made to left elbow radiograph 10/01/2023 FINDINGS: Comminuted supracondylar fracture is seen with mild anterolateral displacement. The joint spaces are maintained. Soft tissue swelling is seen. IMPRESSION: Comminuted supracondylar fracture as above. ACT 112: Negative or not required by law. Electronically signed by: Law Reyez M.D. 10/02/2023 10:28 AM Brain MRI 10/03/23 15:34 MR brain wo con CLINICAL HISTORY: a.fib, R hand numbness, fall; eval CVA TECHNIQUE: Multiplanar and multisequence MR images of the brain were obtained without intravenous contrast. Comparison: Comparison is made to MRI brain 01/27/[address] head 10/01/2023 FINDINGS: No abnormal restricted diffusion is identified. Foci of T2 and FLAIR hyperintensity are noted in the paraventricular areas consistent with chronic small vessel ischemic disease. Ex vacuo ventriculomegaly and sulcal enlargement is noted compatible with diffuse volume loss. No mass is seen. There is no mass effect or midline shift. There is no evidence of acute intraparenchymal hemorrhage. No extra axial fluid collections are seen. The corpus callosum, pituitary gland, and cerebellar tonsils appear grossly unremarkable. Flow voids of the major intracranial arterial vessels are identified. The imaged portions of the paranasal sinuses, mastoid air cells, and orbits are unremarkable. IMPRESSION: Chronic volume loss and age related white matter changes without evidence of acute abnormality. No evidence of acute infarct. ACT 112: Negative or not required by law. Electronically signed by: Law Reyez M.D. 10/03/2023 7:46 PM Cervical Spine MRI 10/03/23 15:34 MRI OF THE CERVICAL SPINE WITHOUT IV CONTRAST CLINICAL HISTORY: Fall. Right hand numbness. COMPARISON STUDY: CT of the cervical spine dated 10/01/2023. TECHNIQUE: MRI of the cervical spine was performed utilizing various T1 and T2-weighted sequences in the axial and sagittal planes. IV contrast was not administered for this examination. FINDINGS: Cervical spine: Vertebral body height and alignment are maintained throughout th e cervical spine. There is no MRI evidence of acute fracture. The atlantodens articulation is maintained. Anterior osteophytes are seen throughout. The spinous processes appear intact. No destructive bony lesion is seen. Chronic degenerative endplate changes are noted at C5-C6 and C6-C7. Minimal endplate edema is noted at C6-C7. Intervertebral discs: Disc desiccation and loss of height is seen throughout the cervical spine. Loss of height is moderate at C5-C6 and C6-C7. Spinal cord: The cervical cord is normal in morphology and signal intensity. C2-C3: The central canal is clear. Uncovertebral and facet arthropathy contribute to minimal left-sided neural foraminal narrowing. The right neural foramen is patent. C3-C4: The central canal is clear. Uncovertebral and facet arthropathy c ontribute to [id number] left neural foraminal stenosis. The right neural foramen is patent. C4-C5: A posterior disc osteophyte complex minimally effaces the ventral subarachnoid space. Uncovertebral and facet arthropathy contribute to [id number] left and mild right neural foraminal narrowing. C5-C6: A posterior disc osteophyte complex effaces the ventral subarachnoid space. There is a right lateral disc bulge. In conjunction with uncovertebral and facet arthropathy, there is severe bilateral neural foraminal stenosis. This likely impinges on the exiting bilateral C6 nerve roots. C6-C7: A posterior disc osteophyte complex abuts the ventral cord. Lateral disc bulge is seen bilaterally. In conjunction with facet arthropathy, there is severe left and anhfjcqi-[id number] right neural foraminal stenosis. This likely impinges on the exiting left C7 nerve root. C7-T1: Unremarkable. T1-T2: Unremarkable. Soft tissues: There is mild nonspecific prevertebral edema at C3 and C4. This is best seen on sagittal STIR image #8. The paraspinous soft tissues are within normal limits. Thyroid goiter is again noted. Brain parenchyma: The visualized brain parenchyma at the skull base is within normal limits. IMPRESSION: 1. There is no MRI evidence of fracture or subluxation involving the cervical spine. 2. There is mild nonspecific prevertebral edema at C3 and C4. A ligamentous injury is not excluded. Correlate clinically. 3. Multilevel cervical spondylosis as above. See discussion for detailed level by level analysis 4. No destructive bony lesion is seen. Dictated: 10/03/2023 7:38 PM Transcribed: 10/03/2023 7:58 PM Vito [id number] Electronically signed by: Zaki Ibrahim M.D. 10/03/2023 8:00 PM Elbow X-Ray 10/05/23 10:40 FL elbow LT 2V CLINICAL HISTORY: Left elbow open reduction and internal fixation. COMPARISON STUDY: Left elbow radiographs October 01, 2023. CT of the left elbow October 02, 2023. FLUOROSCOPY TIME: 56 seconds. FLUOROSCOPIC IMAGES: 3 FINDINGS: Fluoroscopy was provided during open reduction and internal fixation of the left humeral supracondylar fracture. Fracture alignment has improved and appears near anatomic. Hardware is intact. There are no unexpected radiopaque foreign bodies. IMPRESSION: Fluoroscopy provided during open reduction and internal fixation of the left humeral supracondylar fracture. ACT 112: Negative or not required by law. Electronically signed by: Nakul Pastor M.D. 10/05/2023 11:35 AM Hospital Course (1) Supracondylar fracture of humerus: left arm - due to fall s/p ORIF by Dr Pedro Fam cont sling, pain meds, etc mildly low vit D - replace DVT proph - Eliquis [facility] post-discharge for rehab f/u Dr Fam 10-14 days post-surgery in the clinic for recheck (2) Rhabdomyolysis: 2nd to fall at home. Peak CPK of 1129. Last CPK was nearly normal at 228. Statin resumed prior to discharge. (3) UTI (urinary tract infection): s/p rocephin x 3 doses. urine cx with gardnerella which is typically considered non-pathogenic. however, given the extreme leukocytosis she had at admission (28), completed total of 3 days of rocephin for this. now off antibiotics. odell removed prior to discharge and voiding spontaneously. (4) Elevated troponin: peak HS Troponin 58.8 - likely myocardial demand ischemia in setting of her fall, humerus Fx, UTI, etc. No evidence of ischemic event. Echo with normal EF and normal wall motion. (5) CKD (chronic kidney disease) stage 3, GFR 30-59 ml/min: CrCl at baseline low 30s c/w stage 3b. had granular casts on admission u/a c/w mild kidney injury - likely due to rhabdomyolysis. Creatinine at discharge - 1.5 (about her baseline). (6) HTN (hypertension): controlled -- in fact her control was quite tight....THUS - Amlodipine 10mg po daily was discontinued She will continue Metoprolol succ 25mg po daily (7) History of stroke: 2020 R frontal-parietal lobe on MRI brain at that time CTA head/neck negative developed rate-controlled a.fib early in this hospital stay CHADs-VASC is VERY HIGH quite possible her prior CVA was a.fib related (perhaps she has had PAF in the past) STOPPED PLAVIX started Eliquis 5mg BID (weight is 90 kg, Cr 1.4, age 83 - borderline needing reduced dose - watch renal function carefully over time) (8) Atrial fibrillation: developed rate-controlled a.fib early in the stay and has remained in such since that time no symptoms from a.fib no prior documented h/o a.fib in light of prior CVA very possible she has had undetected a.fib in the past continue telemetry continue metoprolol succinate once daily she has very high CHADs-VASC score thus started Eliquis 5mg BID (9) Goiter: long-standing VERY LARGE should have dedicated thyroid u/s at some point TSH noted to be wnl no symptoms from her goiter at this time (10) Numbness of right hand: improving C7 distribution on right no CVA on MRI Brain this admission no cervical fracture on CT or MRI 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 seen on MRI c-spine suspect C7 nerve impingement on right - perhaps her fall aggravated the pre- existing DJD appreciate ortho-spine consult - despite prevertebral edema at C3-C4 ligamentous injury not suspected no c-collar or other precautions needed (11) B12 deficiency: vitamin B12 level = 107 could be contributing to gait issues, fall risk, etc received vitamin B12 1000mcg IM daily x 5 days while here at discharge changed to vitamin B12 1000mcg daily by mouth recommend 12 months of replacement (12) Vitamin D insufficiency: 25-OH vit D level = 22 cont vit D supplementation 5000 IU daily repeat vitamin D level in 1-2 months (13) Cervical spondylosis: advanced as seen on MRI c-spine see #10 above seen by ortho-spine service - no Rx needed other than pain meds prn (14) Acute blood loss anemia: 4 gram drop from admission (14 --> 10) once daily ferrous sulfate 325mg recommended for 1-2 months follow CBCs over time (15) Acute encephalopathy: improved hospital psychosis was likely at discharge was a/o x 3 Plan patient is transferring to [facility] at discharge Total Time Total Time Spent Total Time Spent (In Minutes): 45 Discharge Plan Discharge Items Patient Disposition: Transfer Inpatient Rehab Fac Reason For Visit: FALL Discharge Diagnosis: 1. Fall with resulting Left elbow supracondylar distal humerus fracture - s/p ORIF by Dr Pedro Fam 10/05/23 2. Acute blood loss anemia 3. Vitamin D insufficiency (level = 22) 4. Vitamin B12 deficiency (level = 107) 5. New-onset atrial fibrillation 6. Large goiter with normal TSH level 7. 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 Rhabdomyolysis - 2nd to fall - resolved 9. Urinary tract infection - resolved 10. Prior history of stroke 11. CKD stage 3, baseline Cr 1.4 to 1.5 12. Hypertension Activity: Per Instructions section Non-emergency contact: Primary Care Provider and Surgeon Call non-emergency contact if: your pain is not controlled, your temperature is above 101.5, your wound has increased redness and your wound has increased drainage Follow-up/Referrals: Love Montano PA-C [Primary Care Provider] - Pedro Fam M.D. [Physician] - (10-14 days from date of surgery (surgery - 10/05/23)) Diet: Heart Healthy Addtl Attending Provider Instructions: Orthopedic Discharge Instructions: Things to Watch Out For -Go to the Emergency Room if you have sudden onset of chest pain, shortness of b reath, or uncontrollable pain. -Call the clinic immediately if you have a sudden increase in the amount of wound drainage or the drainage becomes thick, yellow or green, or foul-smelling. -For routine questions, call the clinic at [phone] during regular business hours (8am-5pm). For urgent issues after regular business hours, you may call the clinic to be connected to the on-call physician. Splint/Dressings -Do not remove your splint or dressings until you follow up in clinic or with therapy. -Keep the splint and dressings clean and dry. If the splint padding gets damp, you may use a department of sociology chair on a low heat setting to dry it out. If the splint padding is soaked, call the clinic to have the splint replaced. -Do not put any objects down inside the splint (such as coat hangers). They c ould scratch your skin and cause a serious infection underneath the splint. Sling/Activity -Keep your hand elevated and move your fingers frequently to reduce swelling. -You may wear a sling for comfort, but come out of the sling 4-5 times a day for active range of motion exercises for your shoulder. -Do not lift any objects greater than 1 pound or bear any weight through your operative arm. Followup -You will need to follow-up with Dr. Fam in orthopedic surgery clinic 10- 14 days after surgery. Please call [facility] at [phone] to make an appointment. [employer] Specialist Provider Instructions: 1. Repeat CBC, BMP, and magnesium in 3 days for stability. Results to medical officer. 2. Current Eliquis dosing is 5mg twice daily. Her creatinine is 1.5 at discharge and she is nearly 84yo. May need to consider dose reduction to 2.5mg twice daily if creatinine worsens. Pending Studies at Discharge: No Stand-Alone Forms: My [facility] [employer] Skilled Items Patient informed of condition?: Yes DNR: No Discharge Level of Care: Acute rehab Communicable Disease: No Discharge Prognosis: Stable Lines: None Urinary Catheter: No Medications and DC Order Prescriptions: New acetaminophen 325 mg Tablet 650 mg PO TID Qty: 60 0RF Eliquis 5 mg Tablet 5 mg PO BID Qty: 60 2RF hydrocodone-acetaminophen 5-325 mg Tablet 1 tab PO Q8H PRN (Reason: pain) Qty: 10 0RF bisacodyl 10 mg Suppository 10 mg VT DAILY PRN (Reason: constipation) Qty: 12 0RF polyethylene glycol 3350 [Miralax] 17 gram Powder In Packet 17 g PO DAILY Qty: 30 0RF sennosides [Senokot] 8.6 mg Tablet 17.2 mg PO HS Qty: 60 0RF melatonin 3 mg Tablet 3 mg PO HS Qty: 30 0RF cholecalciferol (vitamin D3) 125 mcg (5,000 unit) Tablet 5,000 unit PO QAM Qty: 30 0RF multivitamin with folic acid [Daily-Darshan (with folic acid)] 400 mcg Tablet 1 tab PO QAM Qty: 90 1RF cyanocobalamin (vitamin B-12) 1,000 mcg capsule 1,000 mcg PO DAILY Qty: 30 5RF ferrous sulfate 325 mg (65 mg iron) tablet 325 mg PO DAILY Qty: 30 1RF Continued metoprolol succinate [Toprol XL] 25 mg tablet extended release 24 hr 25 mg PO QAM Rx Instructions: PER EXT MED HX--LAST FILLED 10/10/22 FOR 90 DAYS SUPPLY. atorvastatin 40 mg Tablet 40 mg PO QAM 30 Days Qty: 30 3RF Rx Instructions: PER EXT MED HX--LAST FILLED 10/10/22 FOR 90 DAYS SUPPLY. turmeric 400 mg Capsule 400 mg PO DAILY Andra's Leg Cramps 1 dose PO DIRECTED Discontinued clopidogrel 75 mg Tablet 75 mg PO QAM 30 Days Qty: 30 3RF Rx Instructions: PER EXT MED HX--LAST FILLED 10/10/22 FOR 90 DAYS SUPPLY. amlodipine 10 mg tablet 10 mg PO DAILY Rx Instructions: PER EXT MED HX--LAST FILLED 10/10/22 FOR 90 DAYS SUPPLY. ibuprofen 200 mg Tablet 400 mg PO Q6H PRN (Reason: PAIN/FEVER) Total Beets 1 tab PO DAILY Discharge Orders: Discharge Order (Routine); Ordered 10/09/23 Ordered By: Elgin Martínez/Other Patient Handouts: Apixaban Oral Tablet, AFib Preventing Stroke, AFib Admission Data Admit Date/Time: 10/01/23 21:57 Attending Provider: Elgin Garay Admit Provider: Rachelle Farfan Primary Care Provider: Love Montano Other Providers: [facility]; Michele Law; Pedro Fam Coding Level of Care Code 72908 INP/OBS DISCH >30 MIN Diagnoses Supracondylar fracture of humerus S42.413A Rhabdomyolysis M62.82 UTI (urinary tract infection) N39.0 Elevated troponin R79.89 CKD (chronic kidney disease) stage 3, GFR 30-59 ml/min N18.3 HTN (hypertension) I10 History of stroke Z86.73 Atrial fibrillation I48.91 Goiter E04.9 Numbness of right hand R20.0 B12 deficiency E53.8 Vitamin D insufficiency E55.9 Cervical spondylosis M47.812 Acute blood loss anemia D62 Acute encephalopathy G93.40
== END 2023-10-09 18:32 | DRG 493 ==
LOC: ED 18:09 → EDINP 21:57 → SUATTDRO 21:57 → 2N 23:31
DX: Y99.8 Other external cause status; Z86.73 Personal history of transient ischemic attack (TIA), and cerebral infarction without residual deficits; N39.0 Urinary tract infection, site not specified; E55.9 Vitamin D deficiency, unspecified; S42.412A Displaced simple supracondylar fracture without intercondylar fracture of left humerus, initial encounter for closed fracture; G93.40 Encephalopathy, unspecified; Z60.2 Problems related to living alone; Y92.009 Unspecified place in unspecified non-institutional (private) residence as the place of occurrence of the external cause; E53.8 Deficiency of other specified B group vitamins; N18.30 Chronic kidney disease, stage 3 unspecified; E04.9 Nontoxic goiter, unspecified; B96.89 Other specified bacterial agents as the cause of diseases classified elsewhere; W18.09XA Striking against other object with subsequent fall, initial encounter; Z79.02 Long term (current) use of antithrombotics/antiplatelets; M47.22 Other spondylosis with radiculopathy, cervical region; M62.82 Rhabdomyolysis; I24.89 Other forms of acute ischemic heart disease; R29.6 Repeated falls; Z79.899 Other long term (current) drug therapy; S80.02XA Contusion of left knee, initial encounter; D62 Acute posthemorrhagic anemia; I12.9 Hypertensive chronic kidney disease with stage 1 through stage 4 chronic kidney disease, or unspecified chronic kidney disease; I48.91 Unspecified atrial fibrillation; S80.01XA Contusion of right knee, initial encounter